=== PATIENT | male | born 1990 | race Two or more races ===

== ENCOUNTER 2020-06-01 10:20 | Outpatient (REF) | payer OTHER, SELFPAY | END 2020-06-01 10:21 | disposition home or self-care (01) | LOC: HO.LAB 10:20 | PROVIDERS: Visit Provider Internal Medicine | DX: Z20.822 Contact with and (suspected) exposure to COVID-19 (principal) | CPT/HCPCS: 36415; C9803; U0003 ==

== ENCOUNTER 2020-09-04 11:38 | Inpatient (IN) | payer OTHER, SELFPAY ==
[2020-09-04] VITALS (8 sets, daily range): BP systolic 109–143; BP diastolic 55–83; PULSE 59–79; RESP 15–20; TEMP 36.2–36.8; O2SAT 95–99; BMI 26.6
--- NOTE | ~2020-09-04 | CT_ITS ---
EXAMINATION: CT ABDOMEN AND PELVIS WITH CONTRAST CLINICAL INFORMATION: Right lower quadrant pain. COMPARISON: None TECHNIQUE: Multidetector volumetric images were obtained from the superior aspect of the liver through the pubic symphysis following administration 85 mL of Omnipaque 350 intravenous contrast. Sagittal and coronal reformatted images were obtained on the technologist's workstation. Oral contrast: No This CT examination was performed using dose optimization techniques as appropriate, variously including the following: *Automated exposure control *Adjustment of mA and/or kV according to patient size (this includes techniques or standardized protocols for targeted exams where dose is matched to indication/reason for exam; i.e. extremities or head) *Use of iterative reconstruction technique DLP: 408 mGy-cm FINDINGS: LUNG BASES: The visualized lung bases are unremarkable. LIVER, GALLBLADDER, AND BILIARY TREE: The liver is normal in size, shape, and attenuation. No focal hepatic lesion or biliary ductal dilatation is present. The gallbladder is unremarkable with no evidence of radiopaque gallstones, gallbladder wall thickening, or obvious pericholecystic inflammatory changes. PANCREAS: Unremarkable. SPLEEN: Unremarkable. ADRENAL GLANDS: Unremarkable. KIDNEYS AND URETERS: The kidneys are normal in size, shape, and attenuation. No hydronephrosis, hydroureter, or calculi seen. No perinephric stranding. BLADDER: Unremarkable. GASTROINTESTINAL TRACT: There is scattered stool and gas seen throughout the colon. The small bowel loops are normal caliber. The appendix is prominent measuring 1.2 cm in diameter. No malissa appendix fat stranding seen. There is no evidence of appendicolith. ABDOMINAL WALL: No significant hernia is appreciated. LYMPH NODES: Normal. VASCULAR: Unremarkable. PELVIC VISCERA: There is no free air or free fluid. OSSEOUS STRUCTURES: No lytic or sclerotic process seen. CT/CT abdomen pelvis w con IMPRESSION: Prominent appendix measuring 1.2 cm in diameter but no malissa appendix fat stranding or appendicolith. Mild constipation.
--- NOTE | 2020-09-04 12:25 | ED.ABDPAIN ---
HPI - Abdominal Pain General Chief Complaint: Abdominal Pain Stated Complaint: abd pain Time Seen by Provider: 09/04/20 12:00 Source: patient Mode of arrival: ambulatory Limitations: no limitations History of Present Illness HPI narrative: 30-year-old male previously healthy here with abdominal pain. The patient tells me he went to urgent care for right ear pain today and also mentions some right lower abdominal pain which he has had for the last 24 hours. It was recommended he come to the emergency department for further evaluation. He tells me he has had pain in the right lower quadrant for the last 24 hours with nausea. Also having some urinary frequency. No fevers, chills, vomiting, diarrhea, constipation. No testicular pain or penile discharge. Also complaining of right ear pain times several days with no rhinorrhea, nasal congestion, headache, fevers or chills. Related Data Home Medications Medication Instructions Recorded Confirmed cetirizine 10 mg tablet 10 mg PO DAILY 09/04/20 09/04/20 fluticasone propionate spray INTRANASAL 09/04/20 Allergies Allergy/AdvReac Type Severity Reaction Status Date / Time pollen Allergy Unknown rASH, sob Uncoded 09/04/20 11:44 tuna Allergy Unknown anaphylaxis Uncoded 09/04/20 11:44 Review of Systems Review of Systems Yes all other systems are reviewed and are negative Constitutional: Reports no additional constitutional complaints, Denies body ache(s), Denies chills, Denies fever(s), Denies headache(s) and Denies weakness Eyes: Reports no additional eye complaints and Denies change in vision Reports system reviewed and no additional complaints, except as documented, Denies dizziness, Reports otalgia, Denies headache(s), Denies nasal congestion, Denies nasal discharge and Denies neck pain Cardiovascular: Reports no additional cardiovascular complaints, Denies chest pain, Denies leg edema and Denies dyspnea Respiratory: Reports no additional respiratory complaints, Denies cough and Denies dyspnea Gastrointestinal: Reports no additional gastrointestinal complaints, Reports abdominal pain, Denies diarrhea, Reports nausea and Denies vomiting Genitourinary: Denies urinary incontinence Musculoskeletal: Reports no additional musculoskeletal complaints, Denies back pain, Denies arthralgias, Denies joint swelling, Denies neck pain, Denies numbness and Denies tingling Skin/Breast: Reports system reviewed and no additional complaints, except as docu and Denies rash Reports system reviewed and no additional complaints, except as documented, Denies Abnormal speech present, Denies dizziness, Denies headache(s), Denies numbness, Denies tingling and Denies weakness Physical Exam Vital Signs: Vital Signs: Last Vital Signs Temp 98.0 F 09/04/20 11:39 Pulse 62 09/04/20 16:36 Resp 16 09/04/20 16:36 BP 122/69 09/04/20 16:36 Pulse Ox 98 09/04/20 16:36 Body Mass Index 26.6 Const: General: cooperative, healthy appearing, comfortable and no acute distress Orientation/consciousness: patient oriented x3 Limitations: no limitations HENMT: Head: Yes normal to inspection Ears: hearing grossly normal bilaterally, TM normal on the left, mastoids normal, no periauricular adenopathy and TM abnormal (Bulging, erythema) General nose exam: Normal external nose present Face and sinus: Yes normal facial exam Mouth: Normal oral and palatal mucosa present Throat: Yes posterior oropharynx normal Eyes: General: appearance normal, both eyes and all related structures Pupils: Equal, round and reactive pupils present Neck: Neck: Yes normal visual inspection Chest: Chest palpation & inspection: normal inspection of the chest Resp: Effort & Inspection: normal respiratory effort Auscultation: clear to auscultation bilaterally Cardio: Rate: regular rate Rhythm: regular rhythm Peripheral pulses: Peripheral pulses 2+ throughout GI: Inspection: Yes normal to inspection Palpation (GI): Soft to palpation and Tenderness to palpation present (GI) (Moderate tenderness to the right lower abdomen w/guarding) with no rebound tenderness Auscultation: normal bowel sounds : General: Yes no CVA tenderness Back/Spine/Pelvis: Back: no CVA tenderness Thoracic/Lumbar Spine: thoracic and lumbar spine normal to inspection Skin: General skin exam: no rashes or lesions noted Neuro: General: patient oriented x3, no focal motor deficits and normal sensation to monofilament Cranial nerves: Yes Equal, round and reactive pupils present Cognition (Neuro): normal cognition Speech: No Abnormal speech present Gait exam (Neuro): Normal gait present Motor exam (neuro): 5/5 motor strength present throughout Extrem: General: Yes normal to inspection, Yes no pedal edema and Yes no calf tenderness Course Course Course Narrative: 30-year-old male here with right-sided abdominal pain times 24 hours with nausea. On exam has moderate tenderness in the right lower quadrant with some guarding but no rebound. Will need labs, UA, CT a/P. Has right otitis media on exam. Will need antibiotics for this. 1615- CT shows: Prominent appendix measuring 1.2 cm in diameter but no malissa appendix fat stranding or appendicolith. No leukocytosis or shift. Afebrile. Patient did receive 1 dose of morphine but does still have some right lower quadrant tenderness. Spoke to Dr. Wiley who will come down and evaluate the patient at the bedside. 1729-Spoke to Dr Wiley who came to evaluate the patient. Plan for admission. She will order antibiotics. COVID screen ordered. MDM - Abdominal Pain Medical Records Attestation: I reviewed the patient's medical records. Lab Data Attestation: I reviewed the patient's lab results. Result diagrams: 09/04/20 12:58 09/04/20 12:58 Labs: Lab Results 09/04/20 09/04/20 09/04/20 Range/Units 12:58 12:58 12:58 WBC 9.3 (4.8-10.8) X10*3/uL RBC 5.39 (4.60-5.80) X10*6/uL Hgb 15.0 (14.0-18.0) g/dl Hct 45.6 (42-52) % MCV 84.6 (80-98) fL MCH 27.8 (27.0-33.0) pg MCHC 32.9 (31.0-36.0) g/dl RDW 12.1 (11.0-16.0) % Plt Count 211 (160-400) X10*3/uL MPV 11.3 (9.4-12.4) fL Immature Gran % (Auto) 0.2 (0.0-0.4) % Neut % (Auto) 44.6 L (45-73) % Lymph % (Auto) 46.3 H (20-40) % [place] % (Auto) 6.0 (2-11) % Eos % (Auto) 2.6 (0-4) % Baso % (Auto) 0.3 (0-2) % Lymph # (Auto) 4.3 (1.2-4.9) X10*3/uL [place] # (Auto) 0.6 (0.1-1.2) X10*3/uL Eos # (Auto) 0.2 (0.0-0.4) X10*3/uL Baso # (Auto) 0.0 (0.0-0.2) X10*3/uL Abs Immat Gran (auto) 0.02 (0.00-0.03) X10*3/uL Absolute Neuts (auto) 4.2 (2.0-8.3) X10*3/uL Absolute Nucleated RBC 0.000 (0.0-0.012) X10*3/uL Nucleated RBC % (auto) 0.0 (0.0-0.2) /100WBC Hold Blue Top SEE NOTE Sodium 139 (135-145) mmol/L Potassium 4.2 (3.3-5.1) mmol/L Chloride 103 (96-108) mmol/L Carbon Dioxide 27 (22-29) mmol/L Anion Gap 13 (12-20) BUN 13 (9-16) mg/dL Creatinine 0.86 (0.5-1.4) mg/dL Estim Creat Clear Calc 103.3 Estimated GFR > 60 Random Glucose 94 (60-115) mg/dL Calcium 9.6 (8.4-10.2) mg/dL Total Bilirubin 0.3 (0.0-1.0) mg/dL Direct Bilirubin < 0.2 (0.0-0.5) mg/dL AST 24 (5-37) U/L ALT 29 (0-40) U/L Alkaline Phosphatase 57 (39-117) U/L Total Protein 7.9 (6.5-8.0) g/dL Albumin 4.8 (3.5-5.0) g/dL Urine Color Urine Appearance Urine pH (5.0-8.0) Ur Specific [place] (1.005-1.025) Urine Protein (NEG-TRACE) MG/DL Urine Glucose (UA) (NEG) MG/DL Urine Ketones (NEG) MG/DL Urine Blood (NEG) Urine Nitrite (NEG) Ur Leukocyte Esterase (NEG) 09/04/20 Range/Units 13:09 WBC (4.8-10.8) X10*3/uL RBC (4.60-5.80) X10*6/uL Hgb (14.0-18.0) g/dl Hct (42-52) % MCV (80-98) fL MCH (27.0-33.0) pg MCHC (31.0-36.0) g/dl RDW (11.0-16.0) % Plt Count (160-400) X10*3/uL MPV (9.4-12.4) fL Immature Gran % (Auto) (0.0-0.4) % Neut % (Auto) (45-73) % Lymph % (Auto) (20-40) % [place] % (Auto) (2-11) % Eos % (Auto) (0-4) % Baso % (Auto) (0-2) % Lymph # (Auto) (1.2-4.9) X10*3/uL [place] # (Auto) (0.1-1.2) X10*3/uL Eos # (Auto) (0.0-0.4) X10*3/uL Baso # (Auto) (0.0-0.2) X10*3/uL Abs Immat Gran (auto) (0.00-0.03) X10*3/uL Absolute Neuts (auto) (2.0-8.3) X10*3/uL Absolute Nucleated RBC (0.0-0.012) X10*3/uL Nucleated RBC % (auto) (0.0-0.2) /100WBC Hold Blue Top Sodium (135-145) mmol/L Potassium (3.3-5.1) mmol/L Chloride (96-108) mmol/L Carbon Dioxide (22-29) mmol/L Anion Gap (12-20) BUN (9-16) mg/dL Creatinine (0.5-1.4) mg/dL Estim Creat Clear Calc Estimated GFR Random Glucose (60-115) mg/dL Calcium (8.4-10.2) mg/dL Total Bilirubin (0.0-1.0) mg/dL Direct Bilirubin (0.0-0.5) mg/dL AST (5-37) U/L ALT (0-40) U/L Alkaline Phosphatase (39-117) U/L Total Protein (6.5-8.0) g/dL Albumin (3.5-5.0) g/dL Urine Color YELLOW Urine Appearance CLEAR Urine pH 6.0 (5.0-8.0) Ur Specific [place] >= 1.030 H (1.005-1.025) Urine Protein NEG (NEG-TRACE) MG/DL Urine Glucose (UA) NEG (NEG) MG/DL Urine Ketones 5 (NEG) MG/DL Urine Blood NEG (NEG) Urine Nitrite NEG (NEG) Ur Leukocyte Esterase NEG (NEG) Imaging Data CT scan - abdomen: Attestation: I personally reviewed and interpreted this imaging study as follows: Radiologist's impression: EXAMINATION: CT ABDOMEN AND PELVIS WITH CONTRAST CLINICAL INFORMATION: Right lower quadrant pain. COMPARISON: None TECHNIQUE: Multidetector volumetric images were obtained from the superior aspect of the liver through the pubic symphysis following administration 85 mL of Omnipaque 350 intravenous contrast. Sagittal and coronal reformatted images were obtained on the technologist's workstation. Oral contrast: No This CT examination was performed using dose optimization techniques as appropriate, variously including the following: *Automated exposure control *Adjustment of mA and/or kV according to patient size (this includes techniques or standardized protocols for targeted exams where dose is matched to indication/reason for exam; i.e. extremities or head) *Use of iterative reconstruction technique DLP: 408 mGy-cm FINDINGS: LUNG BASES: The visualized lung bases are unremarkable. LIVER, GALLBLADDER, AND BILIARY TREE: The liver is normal in size, shape, and attenuation. No focal hepatic lesion or biliary ductal dilatation is present. The gallbladder is unremarkable with no evidence of radiopaque gallstones, gallbladder wall thickening, or obvious pericholecystic inflammatory changes. PANCREAS: Unremarkable. SPLEEN: Unremarkable. ADRENAL GLANDS: Unremarkable. KIDNEYS AND URETERS: The kidneys are normal in size, shape, and attenuation. No hydronephrosis, hydroureter, or calculi seen. No perinephric stranding. BLADDER: Unremarkable. GASTROINTESTINAL TRACT: There is scattered stool and gas seen throughout the colon. The small bowel loops are normal caliber. The appendix is prominent measuring 1.2 cm in diameter. No malissa appendix fat stranding seen. There is no evidence of appendicolith. ABDOMINAL WALL: No significant hernia is appreciated. LYMPH NODES: Normal. VASCULAR: Unremarkable. PELVIC VISCERA: There is no free air or free fluid. OSSEOUS STRUCTURES: No lytic or sclerotic process seen. CT/CT abdomen pelvis w con IMPRESSION: Prominent appendix measuring 1.2 cm in diameter but no malissa appendix fat stranding or appendicolith. Mild constipation. Discharge Plan Discharge Clinical Impression: Abdominal pain Patient Disposition: Admitted As Inpatient [facility] Past Medical History Attestation statement: The following information was validated with the patient. Source: old records reviewed and nursing notes reviewed Medical History No known health problems Family History Family History Father Hypertension Diabetes Mother No problems noted. Paternal Grandfather Diabetes Social History Social History (Updated 09/04/20 @ 17:03 by Shraddha Wiley MD) Alcohol intake: former Smoking Status: Former smoker Tobacco Type: Cigarette Smoked in Last 30 Days: No Smoking Quit Date: October 2019 Use of substances other than those prescribed or required for medical reasons: No Advance Directives: No Advance Directives Information Provided: Yes
[2020-09-04 13:04] LABS: MANUAL DIFF FLAG NO
[2020-09-04 13:06] LABS: Basophils Percent Auto 0.3 % (0-2); Eosinophils Absolute Auto 0.2 X10*3/uL (0.0-0.4); Eosinophils Percent Auto 2.6 % (0-4); Hematocrit 45.6 % (42-52); Imm Gran Abs Auto 0.02 X10*3/uL (0.00-0.03); Imm Gran Pct Auto 0.2 % (0.0-0.4); Lymphocytes Absolute Auto 4.3 X10*3/uL (1.2-4.9); Lymphocytes Percent Auto 46.3 % (20-40); Mean Corpuscular HGB Conc 32.9 g/dl (31.0-36.0); Mean Corpuscular Hemoglobin 27.8 pg (27.0-33.0); Mean Corpuscular Volume 84.6 fL (80-98); Mean Platelet Volume 11.3 fL (9.4-12.4); Monocytes Absolute Auto 0.6 X10*3/uL (0.1-1.2); Neutrophils Absolute Auto 4.2 X10*3/uL (2.0-8.3); Neutrophils Percent Auto 44.6 % (45-73); Platelet Count 211 X10*3/uL (160-400); Red Blood Count 5.39 X10*6/uL (4.60-5.80); Red Cell Distribution Width 12.1 % (11.0-16.0); White Blood Count 9.3 X10*3/uL (4.8-10.8)
--- NOTE | 2020-09-04 13:18 | PC.NURSE ---
Pt alert and oriented, skin warm, dry. Pt reports referred to ED by Primary DrBashir d/t Right Lower abdominal pain 12/26. Pt resting comfortably at this time with at bedside.
[2020-09-04 13:21] LABS: Appearance Urine CLEAR; Color Urine YELLOW; Glucose Urine UA NEG (NEG); Leukocyte Esterase Urine NEG (NEG); Nitrite Urine NEG (NEG); Specific Gravity - Urine >= 1.030 (1.005-1.025); Urine Blood NEG (NEG); Urine Ketones 5 MG/DL (NEG); Urine Protein NEG (NEG-TRACE)
[2020-09-04 13:30] LABS: Alanine Aminotransferase 29 U/L (0-40); Albumin Level 4.8 g/dL (3.5-5.0); Alkaline Phosphatase 57 U/L (39-117); Anion Gap 13 (12-20); Aspartate Amino Transferase 24 U/L (5-37); Bilirubin Direct < 0.2 mg/dL (0.0-0.5); Bilirubin Total 0.3 mg/dL (0.0-1.0); Blood Urea Nitrogen 13 mg/dL (9-16); Calcium 9.6 mg/dL (8.4-10.2); Carbon Dioxide 27 mmol/L (22-29); Chloride 103 mmol/L (96-108); Creatinine Clr Calc Pharmacy 103.3; Estimated Glomerular Filt Rate > 60; Glucose Random 94 mg/dL (60-115); Potassium 4.2 mmol/L (3.3-5.1); Sodium 139 mmol/L (135-145); Total Protein 7.9 g/dL (6.5-8.0)
[2020-09-04] MEDS: Morphine Sulfate 2 MG/ML CARTRIDGE IVPUSH ×2 (15:25→19:32)
--- NOTE | 2020-09-04 16:37 | PC.NURSE ---
Dr Wiley to bedside. Plan for admission and IV abx
--- NOTE | 2020-09-04 16:57 | P.HPGS_ITS ---
History of Present Illness History of Present Illness Date of Service: 09/04/20 Chief complaint: Abdominal pain, probable appendicitis Narrative: Mina Vincent is a 30 year old male referred to the ED this morning from urgent care for evaluation of right lower quadrant abdominal pain. He had presented to urgent care for evaluation of right ear pain and workup in the emergency room also reveals findings consistent with right otitis media. At the urgent care, he mentioned that he was experiencing right lower quadrant abdominal pain that had started around mid day yesterday. He does not have fever but has experienced mild chills. He notes mild nausea but no vomiting. He has been able to eat. His appetite is slightly diminished. He has not experienced similar pain in the past. The pain has been persistent and slowly worsening. He does not notice it when he is lying quietly, but has pain associated with any movement. He has no urinary complaints. CT scan of the abdomen and pelvis was obtained. This revealed a larger and than usual appendix with diameter of 1.2 cm. There was no periappendiceal inflammation or fluid. There was no mesenteric lymphadenopathy noted and no additional abnormalities were seen. White blood count was normal at 9.3 with a differential showing 45% neutrophils and 46% lymphocytes. Review of Systems Constitutional: Constitutional: Denies body ache(s), Reports chills (Mild), Denies fatigue and Denies fever(s) Eyes: Eyes: Reports no additional eye complaints ENT: Comments: Right ear pain Cardiovascular: Cardiovascular: Reports no additional cardiovascular complaints Respiratory: Respiratory: Reports no additional respiratory complaints Gastrointestinal: Gastrointestinal: Reports as per HPI Genitourinary: Comments: He has been passing urine more frequently in the evening recently, but thinks that this may be related to an increased intake of fluid around that time. He has no other urinary complaints Musculoskeletal: Musculoskeletal: Reports no additional musculoskeletal complaints Integumentary/Breasts: Skin/Breast: Denies rash Endocrine: Endocrine: Denies fatigue Allergic/Immunologic: Comments: Seasonal allergies PMFSH Past Medical History Medical History No known health problems Family History Family History Father Hypertension Diabetes Mother No problems noted. Paternal Grandfather Diabetes Social History Social History (Updated 09/04/20 @ 17:03 by Shraddha Wiley MD) Alcohol intake: former Smoking Status: Former smoker Tobacco Type: Cigarette Smoked in Last 30 Days: No Smoking Quit Date: October 2019 Use of substances other than those prescribed or required for medical reasons: No Advance Directives: No Advance Directives Information Provided: Yes Meds Allergies Allergy/AdvReac Type Severity Reaction Status Date / Time pollen Allergy Unknown rASH, sob Uncoded 09/04/20 11:44 tuna Allergy Unknown anaphylaxis Uncoded 09/04/20 11:44 Active Medications: Current Medications Generic Name Dose Route Start Last Admin Trade Name Freq PRN Reason Stop Dose Admin Piperacillin Sod/Tazobactam 50 mls @ 100 mls/hr 09/04/20 16:38 Sod 3.375 gm/ Sodium Chloride IV 09/04/20 17:07 ONCE STA Home Medications Medication Instructions Recorded Confirmed Last Taken Type cetirizine 10 mg tablet 10 mg PO DAILY 09/04/20 09/04/20 Unknown History fluticasone propionate spray INTRANASAL 09/04/20 Unknown History Physical Exam Vital Signs: Vital Signs: Last Vital Signs Temp 98.0 F 09/04/20 11:39 Pulse 62 09/04/20 16:36 Resp 16 09/04/20 16:36 BP 122/69 09/04/20 16:36 Pulse Ox 98 09/04/20 16:36 Body Mass Index 26.6 Const: General: healthy appearing, no acute distress, alert and awake HENMT: Other: Exam of tympanic membranes not repeated, findings consistent with right otitis media noted in the ED Head: Yes normocephalic and Yes atraumatic Eyes: Conjunctivae: conjunctivae normal Sclerae: sclerae normal EOM: EOMs intact bilaterally Neck: Neck: Yes normal visual inspection and Yes full ROM Resp: Effort & Inspection: normal respiratory effort Auscultation: clear to auscultation bilaterally Cardio: Rate: regular rate Rhythm: regular rhythm GI: Other: Nondistended, soft, no organomegaly, tender right lower quadrant with guarding and mild rebound, no palpable masses Rectal Exam - Male: Yes def erred Skin: Other: Normal color, warm and dry Extrem: Other: Extremities normal to inspection Results Results Labs: Short CBC 09/04/20 Range/Units 12:58 WBC 9.3 (4.8-10.8) X10*3/uL Hgb 15.0 (14.0-18.0) g/dl Hct 45.6 (42-52) % Plt Count 211 (160-400) X10*3/uL BMP 09/04/20 12:58 Sodium 139 Potassium 4.2 Chloride 103 Carbon Dioxide 27 BUN 13 Creatinine 0.86 Calcium 9.6 Liver Function 09/04/20 Range/Units 12:58 Total Bilirubin 0.3 (0.0-1.0) mg/dL Direct Bilirubin < 0.2 (0.0-0.5) mg/dL AST 24 (5-37) U/L ALT 29 (0-40) U/L Alkaline Phosphatase 57 (39-117) U/L Albumin 4.8 (3.5-5.0) g/dL Urine 09/04/20 Range/Units 13:09 Urine Color YELLOW Urine Appearance CLEAR Urine pH 6.0 (5.0-8.0) Ur Specific [place] >= 1.030 H (1.005-1.025) Urine Protein NEG (NEG-TRACE) MG/DL Urine Glucose (UA) NEG (NEG) MG/DL Assessment and Plan (1) Abdominal pain: Qualifiers: Abdominal location: right lower quadrant Qualified Code(s): R10.31 - Right lower quadrant pain Status: Acute This is a 30-year-old male with a 1 day history of worsening right lower quadrant abdominal pain with mild associated nausea. White blood count is normal. CT scan shows a larger than normal appendix without other signs of inflammation. History and exam findings are consistent with early acute appendicitis as is the CT scan, but other etiologies are possible. We discussed this and reviewed options for observation, antibiotic therapy and surgery. We discussed the details as well as potential advantages and disadvantages of each approach. We reviewed the technique of appendectomy and discussed the approach of laparoscopic appendectomy with potential need to convert to open appendectomy in detail. We reviewed risks including but not limited to infection, bleeding, error in diagnosis and appendiceal stump leak. We discussed the average success rate of antibiotic therapy in treatment of appendicitis and the risk of rec urrent appendicitis if antibiotic therapy is successful. We also reviewed that if he does not respond probably to antibiotic therapy, appendectomy would be the next recommended step in treatment. Following discussion, he elected to proceed with a course of antibiotic therapy. He will be treated with Zosyn, which should be effective for his otitis media as well. (2) Otitis media: Problem details: Right Status: Acute New diagnosis of right otitis media. Findings noted by Cristiana Hope NP in the emergency department. He will be treated initially with Zosyn and will be converted to oral antibiotics to complete his treatments treatment course on discharge.
[2020-09-04] MEDS: Piperacillin Sodium/Tazobactam 3.375 GM in 0.9 % Sodium Chloride 50 ML IV ×2 (17:40→22:48)
[2020-09-04 18:35] LABS: COVID-19 Test Negative (Negative); IDNOW Serial# 9DD0AD1C
[2020-09-04] MEDS: Dextrose 5 % and Lactated Ring 1,000 ML 100 ML IVCONT (19:30)
[2020-09-04] MEDS: HYDROmorphone HCl 0.5 MG/0.5 ML SYRINGE IVPUSH (21:31)
[2020-09-05] VITALS (13 sets, daily range): BP systolic 100–134; BP diastolic 50–73; PULSE 54–90; RESP 16–19; TEMP 36.6–37.1; O2SAT 95–99
[2020-09-05] MEDS: HYDROmorphone HCl 0.5 MG/0.5 ML SYRINGE IVPUSH ×4 (00:36→21:13)
[2020-09-05] MEDS: Piperacillin Sodium/Tazobactam 3.375 GM in 0.9 % Sodium Chloride 50 ML IV ×2 (05:47→11:42)
[2020-09-05] MEDS: Dextrose 5 % and Lactated Ring 1,000 ML 100 ML IVCONT (05:47)
[2020-09-05 06:10] LABS: MANUAL DIFF FLAG NO
[2020-09-05 06:23] LABS: Basophils Percent Auto 0.4 % (0-2); Eosinophils Absolute Auto 0.3 X10*3/uL (0.0-0.4); Eosinophils Percent Auto 2.8 % (0-4); Hematocrit 42.2 % (42-52); Hemoglobin 13.5 g/dl (14.0-18.0); Imm Gran Abs Auto 0.03 X10*3/uL (0.00-0.03); Imm Gran Pct Auto 0.3 % (0.0-0.4); Lymphocytes Absolute Auto 4.4 X10*3/uL (1.2-4.9); Lymphocytes Percent Auto 40.4 % (20-40); Mean Corpuscular Hemoglobin 27.8 pg (27.0-33.0); Mean Corpuscular Volume 86.8 fL (80-98); Mean Platelet Volume 11.9 fL (9.4-12.4); Monocytes Absolute Auto 0.7 X10*3/uL (0.1-1.2); Monocytes Percent Auto 6.3 % (2-11); Neutrophils Absolute Auto 5.4 X10*3/uL (2.0-8.3); Neutrophils Percent Auto 49.8 % (45-73); Platelet Count 196 X10*3/uL (160-400); Red Blood Count 4.86 X10*6/uL (4.60-5.80); White Blood Count 10.9 X10*3/uL (4.8-10.8)
--- NOTE | 2020-09-05 08:26 | PM.PNGS ---
Subjective Subjective Date of Service: 09/05/20 Interval history: 30-year-old male patient presenting with complaints of abdominal pain in the right lower quadrant admitted for IV antibiotics. In the last 24 hours the patient notes increased pain in the right lower quadrant, not improved with the current treatment. He denies fever or chills. He denies any current ear pain. Physical Exam Vital Signs: Vital Signs: Last Vital Signs Temp 98.1 F 09/05/20 07:24 Pulse 55 09/05/20 07:24 Resp 16 09/05/20 07:24 BP 111/50 L 09/05/20 07:24 Pulse Ox 98 09/05/20 07:24 Body Mass Index 26.6 Const: General: cooperative, no acute distress and acute distress mild Nutritional Appearance: well nourished Orientation/consciousness: patient oriented x3 Limitations: no limitations Resp: Effort & Inspection: normal respiratory effort GI: Other: Soft, tender in the right lower quadrant with localized rebound tenderness, negative Rovsing sign Skin: Other: Warm, dry, no rash Neuro: General: patient oriented x3 Extrem: General: Yes no clubbing, cyanosis or edema Progress Note: A&P Assessment and plan (1) Acute appendicitis: Status: Acute Assessment and Plan: 30-year-old male patient presenting with complaints of abdominal pain in the right lower quadrant. Patient was initially worked up which noted a normal WBC and a thickened appendix without evidence of appendiceal inflammation. He was admitted for IV antibiotics and observation. This morning his pain is increased mainly in the right lower quadrant suggestive of acute appendicitis. I discussed continue the antibiotics verses laparoscopic appendectomy. The patient wishes to proceed with a laparoscopic appendectomy. After discussion of the procedure, risks, and alternatives, he consents to the laparoscopic appendectomy or possible open appendectomy. This will be added onto the operative schedule today. Fall Risk Details Current Medications: Current Medications Generic Name Dose Route Start Last Admin Trade Name Freq PRN Reason Stop Dose Admin Acetaminophen 650 mg 09/04/20 18:34 Acetaminophen 325 Mg Tablet PO Q6H PRN Fever Albuterol Sulfate 2 puff 09/04/20 22:27 Albuterol Sulfate 90 Mcg 8 Gm Inhaler INHALE RQ6H PRN shortness of breath, wheezing Hydromorphone HCl 0.5 mg 09/04/20 21:14 09/05/20 05:53 Hydromorphone Hcl 0.5 Mg/0.5 Ml Syringe IVPUSH 0.5 mg Q3H PRN Administration Pain, Severe (Pain Scale 7-10) Dextrose/Lactated Ringer's 1,000 mls @ 100 mls/hr 09/04/20 18:34 09/05/20 05:47 D5lr IVCONT 100 mls/hr .Q10H MARTINEZ Administration Piperacillin Sod/Tazobactam 50 mls @ 100 mls/hr 09/05/20 00:00 09/05/20 06:25 Sod 3.375 gm/ Sodium Chloride IV Infused Q6H MARTINEZ Infusion Cefotetan Disodium 2 gm/ 50 mls @ 100 mls/hr 09/05/20 08:10 Sodium Chloride IV 09/05/20 08:39 PREOP ONE Loratadine 10 mg 09/05/20 09:00 09/05/20 08:07 Loratadine 10 Mg Tablet PO Not Given DAILY MARTINEZ Ondansetron HCl 4 mg 09/04/20 18:34 Ondansetron Hcl 4 Mg/2 Ml Vial IVPUSH Q8H PRN nausea Time Spent With Patient Time: Total time spent is greater than 50% in coordination of care (as documented) at patient's floor/unit and/or counseling patient: Time with patient: 15 - 24 minutes
--- NOTE | 2020-09-05 08:36 | ECG_ITS ---
Test Reason : PREOP Blood Pressure : / mmHG Vent. Rate : 053 BPM Atrial Rate : 053 BPM P-R Int : 160 ms QRS Dur : 090 ms QT Int : 416 ms P-R-T Axes : 035 047 045 degrees QTc Int : 390 ms Sinus bradycardia Otherwise normal ECG When compared with ECG of 01-AUG-2018 19:51, Vent. rate has decreased BY 35 BPM Referred By: Shraddha Wiley Electronically Signed By:Jonah Rodgers
--- NOTE | 2020-09-05 09:20 | MHC.CM.PN ---
PATIENT LIVES WITH HIS . HE IS FULLY INDEPENDENT WITH NO DME OR VNA. IS ON HER WAY IN TO SEE PATIENT, AND THEY WILL DISCUSS HCP DOCUMENTATION. CASE MANAGEMENT CAN ASSIST WITH COMPLETION. PLAN IS SURGERY TODAY. EVENTUAL PLAN IS HOME WITH NO SERVICES. HE MAY REQUIRE A RETURN TO WORK NOTE.
[2020-09-05] MEDS: ondansetron HCL 4 MG/2 ML VIAL IVPUSH (09:58)
--- NOTE | 2020-09-05 14:25 | PC.NURSE ---
Pt transported to OR.
[2020-09-05] MEDS: Lactated Ringers 1,000 ML 100 ML IVCONT (14:28)
--- NOTE | 2020-09-05 14:49 | HO.ANESPROP2 ---
[facility] Active Problems Active Problems: All Active Problems (Updated 09/05/20 @ 08:29 by Josh Mcneal MD) Acute appendicitis (Acute) Physical exam (Acute) Abdominal pain (Acute) Otitis media (Acute) Past Medical History Medical History Asthma No known health problems Family History Family History Father Hypertension Diabetes Mother No problems noted. Paternal Grandfather Diabetes Social History Social History Household Members: Spouse and Family Housing: House Alcohol intake: former Smoking Status: Former smoker Tobacco Type: Cigarette service: No Current occupational status: employed Meds Allergies Allergy/AdvReac Type Severity Reaction Status Date / Time pollen Allergy Unknown rASH, sob Uncoded 09/04/20 11:44 tuna Allergy Unknown anaphylaxis Uncoded 09/04/20 11:44 Active Medications: Current Medications Generic Name Dose Route Start Last Admin Trade Name Freq PRN Reason Stop Dose Admin Acetaminophen 650 mg 09/04/20 18:34 Acetaminophen 325 Mg Tablet PO Q6H PRN Fever Albuterol Sulfate 2 puff 09/04/20 22:27 Albuterol Sulfate 90 Mcg 8 Gm Inhaler INHALE RQ6H PRN shortness of breath, wheezing Hydromorphone HCl 0.5 mg 09/04/20 21:14 09/05/20 09:49 Hydromorphone Hcl 0.5 Mg/0.5 Ml Syringe IVPUSH 0.5 mg Q3H PRN Administration Pain, Severe (Pain Scale 7-10) Dextrose/Lactated Ringer's 1,000 mls @ 100 mls/hr 09/04/20 18:34 09/05/20 05:47 D5lr IVCONT 100 mls/hr .Q10H MARTINEZ Administration Piperacillin Sod/Tazobactam 50 mls @ 100 mls/hr 09/05/20 00:00 09/05/20 12:20 Sod 3.375 gm/ Sodium Chloride IV Infused Q6H MARTINEZ Infusion Loratadine 10 mg 09/05/20 09:00 09/05/20 08:07 Loratadine 10 Mg Tablet PO Not Given DAILY MARTINEZ Ondansetron HCl 4 mg 09/04/20 18:34 09/05/20 09:58 Ondansetron Hcl 4 Mg/2 Ml Vial IVPUSH 4 mg Q8H PRN Administration nausea Home Medications Medication Instructions Recorded Confirmed Last Taken Type cetirizine 10 mg tablet 10 mg PO DAILY 09/04/20 09/04/20 Unknown History fluticasone propionate spray INTRANASAL 09/04/20 Unknown History Exam Exam Date and Time: September 05, 2020 1449 Height,Weight and Vital Signs: Height 5 ft 2 in Weight 66.224 kg Last Vital Signs Temp 98.7 F 09/05/20 14:18 Pulse 58 09/05/20 14:18 Resp 16 09/05/20 14:18 BP 112/63 09/05/20 14:18 Pulse Ox 99 09/05/20 14:18 Pertinent Lab Results Pertinent Lab Results: Laboratory Tests 09/04/20 09/04/20 09/04/20 12:58 12:58 12:58 WBC 9.3 RBC 5.39 Hgb 15.0 Hct 45.6 MCV 84.6 MCH 27.8 MCHC 32.9 RDW 12.1 Plt Count 211 MPV 11.3 Immature Gran % (Auto) 0.2 Neut % (Auto) 44.6 L Lymph % (Auto) 46.3 H [place] % (Auto) 6.0 Eos % (Auto) 2.6 Baso % (Auto) 0.3 Lymph # (Auto) 4.3 [place] # (Auto) 0.6 Eos # (Auto) 0.2 Baso # (Auto) 0.0 Abs Immat Gran (auto) 0.02 Absolute Neuts (auto) 4.2 Absolute Nucleated RBC 0.000 Nucleated RBC % (auto) 0.0 Hold Blue Top SEE NOTE Sodium 139 Potassium 4.2 Chloride 103 Carbon Dioxide 27 Anion Gap 13 BUN 13 Creatinine 0.86 Estim Creat Clear Calc 103.3 Estimated GFR > 60 Random Glucose 94 Calcium 9.6 Total Bilirubin 0.3 Direct Bilirubin < 0.2 AST 24 ALT 29 Alkaline Phosphatase 57 Total Protein 7.9 Albumin 4.8 Urine Color Urine Appearance Urine pH Ur Specific [place] Urine Protein Urine Glucose (UA) Urine Ketones Urine Blood Urine Nitrite Ur Leukocyte Esterase COVID-19 (JOHN) COVID-19 Clin Com 09/04/20 09/04/20 09/05/20 13:09 18:06 05:48 WBC 10.9 H RBC 4.86 Hgb 13.5 L Hct 42.2 MCV 86.8 MCH 27.8 MCHC 32.0 RDW 12.0 Plt Count 196 MPV 11.9 Immature Gran % (Auto) 0.3 Neut % (Auto) 49.8 Lymph % (Auto) 40.4 H [place] % (Auto) 6.3 Eos % (Auto) 2.8 Baso % (Auto) 0.4 Lymph # (Auto) 4.4 [place] # (Auto) 0.7 Eos # (Auto) 0.3 Baso # (Auto) 0.0 Abs Immat Gran (auto) 0.03 Absolute Neuts (auto) 5.4 Absolute Nucleated RBC 0.000 Nucleated RBC % (auto) 0.0 Hold Blue Top Sodium Potassium Chloride Carbon Dioxide Anion Gap BUN Creatinine Estim Creat Clear Calc Estimated GFR Random Glucose Calcium Total Bilirubin Direct Bilirubin AST ALT Alkaline Phosphatase Total Protein Albumin Urine Color YELLOW Urine Appearance CLEAR Urine pH 6.0 Ur Specific [place] >= 1.030 H Urine Protein NEG Urine Glucose (UA) NEG Urine Ketones 5 Urine Blood NEG Urine Nitrite NEG Ur Leukocyte Esterase NEG COVID-19 (JOHN) Negative COVID-19 Clin Com See Note Airway Mallampati Class: II TM Dist: >3cm Neck ROM: Full
--- NOTE | 2020-09-05 15:43 | MHC.SHP ---
Pre-Procedural Eval Section A The patient is an INPATIENT: Yes Section B Chief Complaint: Abdominal pain, probable appendicitis Allergies: Allergies Allergy/AdvReac Type Severity Reaction Status Date / Time pollen Allergy Unknown rASH, sob Uncoded 09/04/20 11:44 tuna Allergy Unknown anaphylaxis Uncoded 09/04/20 11:44 Plan Diagnosis/Plan: Unchanged I have reviewed the history and physical and performed a pertinent physical examination on my patient. No changes have occurred unless specified.
--- NOTE | 2020-09-05 17:49 | W.PM.OPN ---
Operative Note Operative Note Date of Service: 09/05/20 Narrative: Preoperative diagnosis: Acute appendicitis Postoperative diagnosis: Same Procedure: Laparoscopic appendectomy Surgeon: Josh Mcneal MD [employer] Supervisor:None Anesthesia: General endotracheal Indications for procedure: 30-year-old male patient with complaints of abdominal pain in the right lower quadrant. Patient was found to be tender in the right lower quadrant but with a normal white count. CT revealed a thickened appendix suggestive of early appendicitis. He was initially treated with IV antibiotics, however today he noted increased abdominal pain in the right lower quadrant which increased also with movement. He presents today for laparoscopic appendectomy. Operative findings: Patient was found to have a minimally inflamed non perforated appendix Specimen:. Appendix Estimated blood loss: 2 mL Complications: None Procedure details: Patient was brought to the OR and placed in a supine position. After administering general anesthesia the patient's abdomen was prepped with ChloraPrep and draped in a sterile fashion. A surgical time-out was called and consent confirmed. Patient received preoperative antibiotics and Venodyne boots were in place. Local anesthesia consisting of 0.5% Sensorcaine with epinephrine was infiltrated in periumbilical region. A 5 mm incision was made below the umbilicus and carried down through subcutaneous tissue. A Veress needle was then inserted while elevating abdominal cavity with towel clips. After a positive drop test the abdomen was insufflated to a pressure of 15 mm of mercury. The Veress needle was removed and a 5 mm trocar inserted. The camera was then inserted in the abdomen explored. A 2nd 5 mm trocars placed in the lower midline. A 12 mm trocar was then placed in the left lower quadrant. The patient was then placed in a Trendelenburg position and rotated to the left. The appendix was identified in the right lower quadrant and brought up using blunt dissecting clamps. The mesentery of the appendix was then divided using the LigaSure. The appendiceal artery was cauterized and divided using the LigaSure. Dissection was continued down to the base of the cecum. An Endo-ROBERTO stapler with a purple reload was then used to divide the appendix at the base with the cecum. The appendix was then placed in Endo-Catch bag and brought out through the left lower quadrant incision. The abdomen was then irrigated with saline solution and suctioned dry. Wounds were checked for hemostasis. CO2 was then evacuated from the abdominal cavity and all trocars removed. Fascia was closed in the left lower quadrant incision using a [id number] 0 Polysorb suture. Skin was closed at all incisions using a subcuticular 4-0 Polysorb suture. Steri-Strips 2 x 2 gauze and Tegaderm were then applied. The patient tolerated the procedure well. Sponge, instrument, needle counts reported as correct. The patient was transferred to PACU in stable condition.
--- NOTE | 2020-09-05 18:01 | P.CONAN_ITS ---
[facility] Active Problems Active Problems: All Active Problems (Updated 09/05/20 @ 08:29 by Josh bailey MD) Acute appendicitis (Acute) Physical exam (Acute) Abdominal pain (Acute) Otitis media (Acute) Past Medical History Medical History Asthma No known health problems Family History Family History Father Hypertension Diabetes Mother No problems noted. Paternal Grandfather Diabetes Social History Social History Household Members: Spouse and Family Housing: House Alcohol intake: former Smoking Status: Former smoker Tobacco Type: Cigarette service: No Current occupational status: employed Meds Allergies Allergy/AdvReac Type Severity Reaction Status Date / Time pollen Allergy Unknown rASH, sob Uncoded 09/04/20 11:44 tuna Allergy Unknown anaphylaxis Uncoded 09/04/20 11:44 Active Medications: Current Medications Generic Name Dose Route Start Last Admin Trade Name Freq PRN Reason Stop Dose Admin Acetaminophen 650 mg 09/04/20 18:34 Acetaminophen 325 Mg Tablet PO Q6H PRN Fever Albuterol Sulfate 2 puff 09/04/20 22:27 Albuterol Sulfate 90 Mcg 8 Gm Inhaler INHALE RQ6H PRN shortness of breath, wheezing Hydromorphone HCl 0.5 mg 09/04/20 21:14 09/05/20 09:49 Hydromorphone Hcl 0.5 Mg/0.5 Ml Syringe IVPUSH 0.5 mg Q3H PRN Administration Pain, Severe (Pain Scale 7-10) Dextrose/Lactated Ringer's 1,000 mls @ 100 mls/hr 09/04/20 18:34 09/05/20 17:45 D5lr IVCONT Not Given .Q10H MARTINEZ Piperacillin Sod/Tazobactam 50 mls @ 100 mls/hr 09/05/20 00:00 09/05/20 12:20 Sod 3.375 gm/ Sodium Chloride IV Infused Q6H MARTINEZ Infusion Lactated Ringer's 1,000 mls @ 100 mls/hr 09/05/20 15:00 09/05/20 14:28 Lr IVCONT 100 mls/hr .Q10H MARTINEZ Administration Loratadine 10 mg 09/05/20 09:00 09/05/20 08:07 Loratadine 10 Mg Tablet PO Not Given DAILY [facility] Ondansetron HCl 4 mg 09/04/20 18:34 09/05/20 09:58 Ondansetron Hcl 4 Mg/2 Ml Vial IVPUSH 4 mg Q8H PRN Administration nausea Home Medications Medication Instructions Recorded Confirmed Last Taken Type cetirizine 10 mg tablet 10 mg PO DAILY 09/04/20 09/04/20 Unknown History fluticasone propionate spray INTRANASAL 09/04/20 Unknown History Exam Exam Date and Time: September 05, [id number] Height,Weight and Vital Signs: Height 5 ft 2 in Weight 66.224 kg Last Vital Signs Temp 98.7 F 09/05/20 14:18 Pulse 58 09/05/20 14:18 Resp 16 09/05/20 14:18 BP 112/63 09/05/20 14:18 Pulse Ox 99 09/05/20 14:18 Pertinent Lab Results Pertinent Lab Results: Laboratory Tests 09/04/20 09/04/20 09/04/20 12:58 12:58 12:58 WBC 9.3 RBC 5.39 Hgb 15.0 Hct 45.6 MCV 84.6 MCH 27.8 MCHC 32.9 RDW 12.1 Plt Count 211 MPV 11.3 Immature Gran % (Auto) 0.2 Neut % (Auto) 44.6 L Lymph % (Auto) 46.3 H [place] % (Auto) 6.0 Eos % (Auto) 2.6 Baso % (Auto) 0.3 Lymph # (Auto) 4.3 [place] # (Auto) 0.6 Eos # (Auto) 0.2 Baso # (Auto) 0.0 Abs Immat Gran (auto) 0.02 Absolute Neuts (auto) 4.2 Absolute Nucleated RBC 0.000 Nucleated RBC % (auto) 0.0 Hold Blue Top SEE NOTE Sodium 139 Potassium 4.2 Chloride 103 Carbon Dioxide 27 Anion Gap 13 BUN 13 Creatinine 0.86 Estim Creat Clear Calc 103.3 Estimated GFR > 60 Random Glucose 94 Calcium 9.6 Total Bilirubin 0.3 Direct Bilirubin < 0.2 AST 24 ALT 29 Alkaline Phosphatase 57 Total Protein 7.9 Albumin 4.8 Urine Color Urine Appearance Urine pH Ur Specific [employer] Urine Protein Urine Glucose (UA) Urine Ketones Urine Blood Urine Nitrite Ur Leukocyte Esterase COVID-19 (JOHN) COVID-19 Clin Com 09/04/20 09/04/20 09/05/20 13:09 18:06 05:48 WBC 10.9 H RBC 4.86 Hgb 13.5 L Hct 42.2 MCV 86.8 MCH 27.8 MCHC 32.0 RDW 12.0 Plt Count 196 MPV 11.9 Immature Gran % (Auto) 0.3 Neut % (Auto) 49.8 Lymph % (Auto) 40.4 H [place] % (Auto) 6.3 Eos % (Auto) 2.8 Baso % (Auto) 0.4 Lymph # (Auto) 4.4 [place] # (Auto) 0.7 Eos # (Auto) 0.3 Baso # (Auto) 0.0 Abs Immat Gran (auto) 0.03 Absolute Neuts (auto) 5.4 Absolute Nucleated RBC 0.000 Nucleated RBC % (auto) 0.0 Hold Blue Top Sodium Potassium Chloride Carbon Dioxide Anion Gap BUN Creatinine Estim Creat Clear Calc Estimated GFR Random Glucose Calcium Total Bilirubin Direct Bilirubin AST ALT Alkaline Phosphatase Total Protein Albumin Urine Color YELLOW Urine Appearance CLEAR Urine pH 6.0 Ur Specific [employer] >= 1.030 H Urine Protein NEG Urine Glucose (UA) NEG Urine Ketones 5 Urine Blood NEG Urine Nitrite NEG Ur Leukocyte Esterase NEG COVID-19 (JOHN) Negative COVID-19 Clin Com See Note Airway Mallampati Class: II TM Dist: >3cm Neck ROM: Full
[2020-09-05] MEDS: oxyCODONE HCl Immed Release 5 MG TABLET 10 MG PO ×2 (18:42→23:37)
[2020-09-05] MEDS: oxyCODONE HCl Immed Release 5 MG TABLET PO (20:02)
--- NOTE | 2020-09-05 21:35 | PC.NURSE ---
Recieved pt from PACU, assessed and stable. MAR showing 2 orders for Iv fluids (D5LR and LR). Contacted Shai Mcnamara the General Surgeon, recieved telehpone order to continue D5LR @ 60mL/hr and DC LR. New orders have been put in.
[2020-09-05] MEDS: Dextrose 5 % and Lactated Ring 1,000 ML 60 ML IVCONT (23:41)
[2020-09-06 00:26] VITALS: RESP 18
[2020-09-06] MEDS: HYDROmorphone HCl 0.5 MG/0.5 ML SYRINGE IVPUSH ×5 (00:26→12:25)
[2020-09-06 02:58] VITALS: RESP 18
[2020-09-06] MEDS: oxyCODONE HCl Immed Release 5 MG TABLET PO (05:35)
[2020-09-06 06:27] VITALS: RESP 18
[2020-09-06 07:21] VITALS: BP 133/60; PULSE 59; RESP 15; TEMP 36.7; O2SAT 99
--- NOTE | 2020-09-06 07:37 | PM.PNGS ---
Subjective Subjective Date of Service: 09/06/20 Interval history: Patient reports incisional pain; tolerated some light po last night. Physical Exam Vital Signs: Vital Signs: Last Vital Signs Temp 98.0 F 09/06/20 07:21 Pulse 59 09/06/20 07:21 Resp 15 09/06/20 07:21 BP 133/60 09/06/20 07:21 Pulse Ox 99 09/06/20 07:21 Body Mass Index 26.6 Const: General: cooperative, comfortable, no acute distress, alert and awake Resp: Effort & Inspection: normal respiratory effort GI: Other: incisions clean and intact; small amount of bloody discharged Inspection: Yes normal to inspection Skin: General skin exam: no rashes or lesions noted Extrem: General: Yes no clubbing, cyanosis or edema Progress Note: A&P Assessment and plan (1) S/P appendectomy: Problem details: 09/05/2020 Dr. Mcneal Status: Inactive Assessment and Plan: POD #1 s/p laparoscopic appendectomy. Advance to regular diet. OOB and ambulate. Will check back later today for possible discharge to home. Fall Risk Details Current Medications: Current Medications Generic Name Dose Route Start Last Admin Trade Name Freq PRN Reason Stop Dose Admin Acetaminophen 650 mg 09/04/20 18:34 Acetaminophen 325 Mg Tablet PO Q6H PRN Fever Albuterol Sulfate 2 puff 09/04/20 22:27 Albuterol Sulfate 90 Mcg 8 Gm Inhaler INHALE RQ6H PRN shortness of breath, wheezing Fentanyl 50 mcg 09/05/20 18:01 Fentanyl Citrate/Pf 100 Mcg/2 Ml Vial IVPUSH Q5M PRN Pain, Severe (Pain Scale 7-10) Fentanyl 50 mcg 09/05/20 18:03 Fentanyl Citrate/Pf 100 Mcg/2 Ml Vial IVPUSH Q5M PRN Pain, Severe (Pain Scale 7-10) Hydromorphone HCl 0.5 mg 09/04/20 21:14 09/06/20 06:27 Hydromorphone Hcl 0.5 Mg/0.5 Ml Syringe IVPUSH 0.5 mg Q3H PRN Administration Pain, Severe (Pain Scale 7-10) Dextrose/Lactated Ringer's 1,000 mls @ 60 mls/hr 09/04/20 18:34 04/20/21 23:41 D5lr IVCONT 60 mls/hr .[id number] MARTINEZ Administration Loratadine 10 mg 09/05/20 09:00 09/05/20 08:07 Loratadine 10 Mg Tablet PO Not Given DAILY MARTINEZ Ondansetron HCl 4 mg 09/04/20 18:34 09/05/20 09:58 Ondansetron Hcl 4 Mg/2 Ml Vial IVPUSH 4 mg Q8H PRN Administration nausea Ondansetron HCl 4 mg 09/05/20 18:01 Ondansetron Hcl 4 Mg/2 Ml Vial IVPUSH ONCE PRN Nausea and Vomiting Ondansetron HCl 4 mg 09/05/20 18:03 Ondansetron Hcl 4 Mg/2 Ml Vial IVPUSH ONCE PRN Nausea and Vomiting Oxycodone HCl 5 mg 09/05/20 18:18 09/06/20 05:35 Oxycodone Hcl Immed Release 5 Mg Tablet PO 5 mg Q6H PRN Administration Pain, Moderate (Pain Scale 4-6 Time Spent With Patient Time: Total time spent is greater than 50% in coordination of care (as documented) at patient's floor/unit and/or counseling patient: Time with patient: 15 - 24 minutes
[2020-09-06] MEDS: Loratadine 10 MG TABLET PO (07:39)
[2020-09-06] MEDS: Acetaminophen 325 MG TABLET 650 MG PO (07:39)
--- NOTE | 2020-09-06 10:54 | HO.POSTANES ---
Post Anesthesia Evaluation Post Anesthesia Evaluation Vital Signs: Vital Signs Temp Pulse Resp BP Pulse Ox 09/06/20 07:21 98.0 F 59 15 133/60 99 09/06/20 06:27 18 09/06/20 02:58 18 09/06/20 00:26 18 09/05/20 23:42 98 F 54 16 134/61 96 Anesthesia: General Endotracheal-GETA Mental Status: Awake Pain Control: Satisfactory Nausea/Vomiting: None Hydration: Adequate Anesthesia-Related Issues: No Anes. Related Issues
[2020-09-06 11:16] VITALS: BP 123/57; PULSE 67; RESP 18; TEMP 36.4; O2SAT 97
--- NOTE | 2020-09-06 11:56 | MHC.CM.PN ---
PATIENT IS DISCHARGED HOME WITH NO NEED FOR SERVICES. RN AWARE OF PLAN. (IN ROOM) TO TRANSPORT.
--- NOTE | 2020-09-06 12:45 | P.DS_ITS ---
DS: Providers Provider Date of Service: 09/06/20 Date of admission: 09/04/20 16:47 Primary care physician: DENIS Sibley DS: Diagnosis Discharge Diagnosis (1) S/P appendectomy: Status: Inactive Problem details: 09/05/2020 Dr. Mcneal DS: Medications Discharge Medications Home Medications: Home Medications Medication Instructions Recorded Confirmed cetirizine 10 mg tablet 10 mg PO DAILY 09/04/20 09/04/20 fluticasone propionate spray INTRANASAL 09/04/20 Previous Rx's Medication Instructions Recorded oxycodone 5 mg PO Q6H PRN #14 tab 09/06/20 DS: Summary Hospital Course Hospital Course: Mina Vincent is a 30 year old male referred to the ED from urgent care for evaluation of right lower quadrant abdominal pain. He had presented to urgent care for evaluation of right ear pain and workup in the emergency room also reveals findings consistent with right otitis media. At the urgent care, he mentioned that he was experiencing right lower quadrant abdominal pain that had started around mid day yesterday. He does not have fever but has experienced mild chills. He notes mild nausea but no vomiting. He has been able to eat. His appetite is slightly diminished. He has not experienced similar pain in the past. The pain has been persistent and slowly worsening. He does not notice it when he is lying quietly, but has pain associated with any movement. He has no urinary complaints. CT scan of the abdomen and pelvis was obtained. This revealed a larger and than usual appendix with diameter of 1.2 cm. There was no periappendiceal inflammation or fluid. There was no mesenteric lymphadenopathy noted and no additional abnormalities were seen. White blood count was normal at 9.3 with a differential showing 45% neutrophils and 46% lymphocytes. Patient was admitted to the surgical service for treatment of possible early appendicitis. He was made NPO and started on IV antibiotics. On the next hospital day the patient reported increased abdominal pain in the right lower quadrant. He felt increased pain with movement in bed. Examination revealed tenderness in the right lower quadrant over McBurney's point suggestive of acute appendicitis. As the symptoms appear to be worsening rather than improving decision was made to proceed to laparoscopic appendectomy. After discussion of the procedure, risks, and alternatives, he consented to the procedure. He was subsequently taken to the OR on 09/05/2020 for laparoscopic appendectomy. Operative findings were suggestive of early appendicitis. He tolerated the procedure well. Postoperatively he was started on a regular diet which he tolerated well without nausea or vomiting. He does report some abdominal pain in the area of the incisions. Wounds are clean and intact without redness or discharge. The patient was observed until after lunch. He tolerated his breakfast and lunch without nausea or vomiting and felt comfortable going home. He was subsequently discharged home in stable condition. Time Spent with Patient Time attestation: Total time spent providing and/or coordinating discharge services: Discharge coordination time: Less than 30 minutes Physical Exam Vital Signs: Vital Signs: Last Vital Signs Temp 97.5 F 09/06/20 11:16 Pulse 67 09/06/20 11:16 Resp 18 09/06/20 11:16 BP 123/57 L 09/06/20 11:16 Pulse Ox 97 09/06/20 11:16 Body Mass Index 26.6 Const: General: cooperative, healthy appearing, comfortable, no acute distres s, well developed, alert, awake and Physically active Resp: Effort & Inspection: normal respiratory effort GI: Other: Trocar incisions in the lower abdomen are clean, dry, and intact without redness or discharge. Abdomen is otherwise soft. Skin: Other: Warm, dry, no rash Extrem: General: Yes no clubbing, cyanosis or edema DS: Data Data Completed and Pending Pending studies at discharge: Pending at discharge 09/05/20 17:39 Surgical [PTH] Routine Discharge Plan Discharge Patient Disposition: Home, Self-Care Discharge Diagnosis: Acute appendicitis Referrals: Josh Downing FNP- [Primary Care Provider] - 1 Week Josh Mcneal MD [Physician] - 2 Weeks Discharge Medications: New oxycodone 5 mg Tablet 5 mg PO Q6H PRN (Reason: Pain, Moderate (Pain Scale 4-6) Qty: 14 RF: 0 Continued fluticasone propionate 50 mcg/actuation spray,suspension intranasal RF: 0 cetirizine 10 mg tablet 10 mg PO DAILY RF: 0 Discharge Orders: Discharge Order (Routine); Ordered 09/06/20 Ordered By: Josh Mcneal Diet: advance to usual diet Activity on Discharge: No heavy lifting Stand Alone Forms: Patient Portal Discharge page Care Plan Goals: Return to normal activity and normal diet Health Concerns: Acute appendicitis Plan of Treatment: Laparoscopic appendectomy Assessment: Acute appendicitis Patient Instructions: Laparoscopic Appendectomy (DC)
== END 2020-09-06 13:03 | disposition home or self-care (01) | DRG 343 ==
LOC: HO.ED 12:25 → HO.S3 17:14
PROVIDERS: Nurse Practitioner Family; Surgery; Admitting Provider Surgery; Emergency Provider Emergency Medicine; PCP Nurse Practitioner Family; Visit Provider Surgery
PROC: 0DTJ4ZZ Resection of Appendix, Percutaneous Endoscopic Approach (ICD-10-PCS; CPT 44970; principal; 2020-09-05 14:20)
DX: K35.80 Unspecified acute appendicitis (principal); H66.91 Otitis media, unspecified, right ear; Z20.822 Contact with and (suspected) exposure to COVID-19; Z79.51 Long term (current) use of inhaled steroids; Z87.891 Personal history of nicotine dependence; Z79.899 Other long term (current) drug therapy
CPT/HCPCS: 44970; 36415; 74177; 80048; 80076; 81003; 85025; 87635; 88304; 93005; 96374; 99024; 99285; J0330; J0690; J1100; J1170; J2250; J2270; J2405; J2543; J3010

== ENCOUNTER 2020-09-09 15:08 | Emergency (ER) | payer OTHER, SELFPAY ==
--- NOTE | ~2020-09-09 | CT_ITS ---
EXAMINATION: CT ABDOMEN AND PELVIS WITH CONTRAST CLINICAL INFORMATION: 2 days postop appendicitis. Fever. Evaluate for abscess COMPARISON: 09/04/2020 TECHNIQUE: Multidetector volumetric images were obtained from the superior aspect of the liver through the pubic symphysis following administration 85 mL of Omnipaque 350 intravenous contrast. Sagittal and coronal reformatted images were obtained on the technologist's workstation. Oral contrast: No This CT examination was performed using dose optimization techniques as appropriate, variously including the following: *Automated exposure control *Adjustment of mA and/or kV according to patient size (this includes techniques or standardized protocols for targeted exams where dose is matched to indication/reason for exam; i.e. extremities or head) *Use of iterative reconstruction technique DLP: 386 mGy-cm FINDINGS: LUNG BASES: The visualized lung bases are unremarkable. LIVER, GALLBLADDER, AND BILIARY TREE: There is a granuloma at the junction of the right and left lobes of liver in image 7/80. No concerning focal liver lesion. The gallbladder is unremarkable with no evidence of radiopaque gallstones, gallbladder wall thickening, or obvious pericholecystic inflammatory changes. PANCREAS: Normal. SPLEEN: Normal. ADRENAL GLANDS: No adrenal mass. KIDNEYS AND URETERS: The kidneys are normal in size, shape, and attenuation. No hydronephrosis, hydroureter, or calculi seen. No perinephric stranding. BLADDER: Unremarkable. GASTROINTESTINAL TRACT: Stomach and small bowel are nondilated. There are postoperative changes of the cecum consistent with prior appendectomy. There is minimal adjacent haziness and stranding of the fat, not unexpected following recent appendectomy. No discrete fluid collection to suggest an abscess however. ABDOMINAL WALL: There are postoperative changes in the region of the umbilicus and left lower quadrant consistent with laparoscopic portals. LYMPH NODES: No lymphadenopathy. VASCULAR: Unremarkable. PELVIC VISCERA: Unremarkable. OSSEOUS STRUCTURES: Unremarkable. CT/CT abdomen pelvis w con IMPRESSION: Expected postoperative appearance status post recent appendectomy. No abscess seen.
--- NOTE | ~2020-09-09 | XR_ITS ---
EXAMINATION: XR CHEST CLINICAL INFORMATION: 2 days postop appendectomy, fever, rule out pneumonia. COMPARISON: 02/19/2018 chest radiographs. TECHNIQUE: 2 views of the chest were obtained. FINDINGS: No significant abnormality is noted involving the heart, lungs, mediastinum, bony thorax or soft tissues. XR/XR chest 2V IMPRESSION: No acute cardiopulmonary process.
[2020-09-09 15:36] VITALS: BP 137/66; PULSE 72; RESP 16; TEMP 37.3; O2SAT 97; BMI 27.6
--- NOTE | 2020-09-09 16:14 | ED_ITS ---
HPI - General Adult General Chief complaint: Wound/Laceration Stated complaint: post op infection? Time Seen by Provider: 09/09/20 15:51 Source: patient and family (, Crissy) Mode of arrival: ambulatory Limitations: no limitations History of Present Illness HPI narrative: 30-year-old male 3 days postop from appendectomy who presents emergency department for evaluation of fever, chills, diaphoresis, urinary neida quency and rectal discharge. Patient states that prior to being diagnosed with appendicitis he developed bilateral ear pain. He was diagnosed with bilateral otitis media , he never took any antibiotics and the next day he was diagnosed with appendicitis on 08/26/2020. His CT scan revealed an enlarged appendix with no evidence of abscess or inflammatory changes, he was hospitalized overnight, his pain get worse he then had an appendectomy on 09/06/2020. He has been 1 day in the hospital. Since going home he states these developed chills followed by fever and urinary frequency. He states that his abdominal pain improved after the surgery, is still present and is located in his lower abdomen. Describes the pain as a constant, dull ache which is worse in the left lower quadrant than on the right. He has had urinary frequency and dysuria. He noticed a yellow discharge per rectum for 1 day but this is resolved, he denied diarrhea. He has had mild myalgias. He denied sore throat, ear pain, chest pain, shortness of breath, dyspnea on exertion, cough, nausea, vomiting, loss of sense of taste or smell. The patient has not had a COVID-19 infection. He has not been vaccinated for COVID-19. Related Data Home Medications Medication Instructions Recorded Confirmed cetirizine 10 mg tablet 10 mg PO DAILY 09/04/20 09/04/20 fluticasone propionate spray INTRANASAL 09/04/20 Previous Rx's Medication Instructions Recorded oxycodone 5 mg PO Q6H PRN #14 tab 09/06/20 Allergies Allergy/AdvReac Type Severity Reaction Status Date / Time pollen Allergy Unknown rASH, sob Uncoded 09/04/20 11:44 tuna Allergy Unknown anaphylaxis Uncoded 09/04/20 11:44 Review of Systems Review of Systems: Yes all other systems are reviewed and are negative PMFSH Past Medical History [facility] Narrative: The patient has no chronic medical conditions. He denies tobacco, alcohol and drug use. He is and his is here in the emergency department with him. Medical History (Updated 09/09/20 @ 18:28 by Adonay Marino MD) Asthma No known health problems Surgical History S/P appendectomy Family History Family History Father Hypertension Diabetes Mother No problems noted. Paternal Grandfather Diabetes Social History Social History Household Members: Spouse and Family Housing: House Alcohol intake: former Smoking Status: Former smoker Tobacco Type: Cigarette Advance Directives: No Advance Directives Information Provided: Yes service: No Current occupational status: employed Physical Exam Vital Signs: Vital Signs: Last Vital Signs Temp 99.1 F 09/09/20 15:36 Pulse 72 09/09/20 15:36 Resp 16 09/09/20 15:36 BP 137/66 09/09/20 15:36 Pulse Ox 97 09/09/20 15:36 Body Mass Index 27.6 Const: General: cooperative and healthy appearing Orientation/consci ousness: oriented to person and oriented to place Limitations: no limitations HENMT: Head: Yes normal to inspection, Yes normocephalic and Yes atraumatic Ears: external ears normal and TM's normal bilaterally General nose exam: Normal external nose present Face and sinus: Yes normal facial exam Mouth: Normal oral and palatal mucosa present Throat: Yes tonsils normal, Yes uvula midline and Yes other (Left posterior exudates with erythema) Eyes: Periorbital: periorbital findings normal Eyelids: Yes eyelids normal Conjunctivae: conjunctivae normal Sclerae: sclerae normal Corneas: corneas normal Pupils: Equal, round and reactive pupils present Direct Ophthalmoscopy: normal light reflex Neck: Neck: Yes full ROM, Yes no lymphadenopathy, Yes no meningeal signs, Yes trachea midline and Yes supple Chest: Chest palpation & inspection: normal inspection of the chest and normal palpation of entire chest wall Resp: Effort & Inspection: normal respiratory effort and able to speak in complete sentences Auscultation: clear to auscultation bilaterally Cardio: Rate: regular rate Rhythm: regular rhythm Heart sounds: S1 normal heart sound present, S2 normal heart sound present and no murmurs GI: Inspection: Yes normal to inspection Palpation (GI): Soft to palpation, Tenderness to palpation present (GI) in the LLQ (Moderate), in the RLQ (Mod erate) and suprapubicly (Mild), no guarding, not rigid and No hepatosplenomegaly present : General: Yes no CVA tenderness Back/Spine/Pelvis: Back: no CVA tenderness Cervical Spine: normal cervical lordosis Thoracic/Lumbar Spine: thoracic and lumbar spine normal to inspection Skin: Lesions: no lesions Rashes: no rashes Wounds: no wounds Neuro: General: oriented to person, oriented to place and no meningeal signs Cranial nerves: Yes CN's II-XII intact bilaterally and Yes Equal, round and reactive pupils present Cognition (Neuro): normal cognition Motor exam (neuro): 5/5 motor strength present throughout Extrem: General: Yes normal to inspection and Yes full ROM Psych: Appearance: well kempt Mental Status: mental status grossly normal Speech and movement: Normal speech and movement present Affect: normal affect Attitude: cooperative Thought process: Normal thought process present Thought content: Normal thought content present Course Course Course Narrative: 30-year-old male, 3 days postop appendectomy who presents emergency department for evaluation of fever, chills, diaphoresis, lack of appetite, rectal discharge (resolved), frequency and dysuria. Physical examination did reveal left posterior pharyngeal exudates with erythema and moderate lower abdominal tenderness. Vital signs were stable with a slight elevation in his temperature of 99.1?. The differential includes but is not limited to acute viral syndrome, COVID-19 infection, pharyngitis, urinary tract infection, postsurgical infection/abscess, pneumonia. I did order a CBC, CMP, lactic acid, blood cultures x2, rapid strep, COVID-19, and CT of the abdomen pelvis with IV contrast. Patient was ordered to get normal saline x1 L IV. 1824: The patient's laboratory evaluation was unremarkable. The patient's urinalysis, COVID-19, rapid strep were negative. Chest x-ray and urinalysis were negative. The patient's CT scan of the abdomen pelvis was consistent with postsurgical changes with no acute findings to explain his fever. At this time, I suspect the patient may have a viral infection in the did discuss this with him. I did tell him that there is a throat culture that should be back in 2-3 days and he should check this on the patient portal and that we should contact him if it is positive for Streptococcus. Patient was advised to follow-up with his PCP and with the surgeon for re-evaluation. Was advised return to the emergency department if his symptoms get worse or if you develop any new symptoms that are concerning to him. Medical Decision Making Lab Data Result diagrams: 09/09/20 16:32 09/09/20 16:32 Labs: Lab Results 09/09/20 09/09/20 09/09/20 Range/Units 16:32 16:32 16:32 WBC 9.8 (4.8-10.8) X10*3/uL RBC 5.17 (4.60-5.80) X10*6/uL Hgb 15.0 (14.0-18.0) g/dl Hct 43.1 (42-52) % MCV 83.4 (80-98) fL MCH 29.0 (27.0-33.0) pg MCHC 34.8 (31.0-36.0) g/dl RDW 11.6 (11.0-16.0) % Plt Count 227 (160-400) X10*3/uL MPV 11.1 (9.4-12.4) fL Immature Gran % (Auto) 0.3 (0.0-0.4) % Neut % (Auto) 51.6 (45-73) % Lymph % (Auto) 37.7 (20-40) % [facility] % (Auto) 7.4 (2-11) % Eos % (Auto) 2.7 (0-4) % Baso % (Auto) 0.3 (0-2) % Lymph # (Auto) 3.7 (1.2-4.9) X10*3/uL [facility] # (Auto) 0.7 (0.1-1.2) X10*3/uL Eos # (Auto) 0.3 (0.0-0.4) X10*3/uL Baso # (Auto) 0.0 (0.0-0.2) X10*3/uL Abs Immat Gran (auto) 0.03 (0.00-0.03) X10*3/uL Absolute Neuts (auto) 5.1 (2.0-8.3) X10*3/uL Absolute Nucleated RBC 0.000 (0.0-0.012) X10*3/uL Nucleated RBC % (auto) 0.0 (0.0-0.2) /100WBC Sodium 139 (135-145) mmol/L Potassium 4.2 (3.3-5.1) mmol/L Chloride 103 (96-108) mmol/L Carbon Dioxide 26 (22-29) mmol/L Anion Gap 14 (12-20) BUN 9 (9-16) mg/dL Creatinine 0.79 (0.5-1.4) mg/dL Estim Creat Clear Calc 109.8 Estimated GFR > 60 Random Glucose 98 (60-115) mg/dL Lactic Acid 1.1 (0.5-2.0) mmol/L Calcium 9.6 (8.4-10.2) mg/dL Total Bilirubin 0.3 (0.0-1.0) mg/dL AST 33 (5-37) U/L ALT 45 H (0-40) U/L Alkaline Phosphatase 60 (39-117) U/L Total Protein 8.3 H (6.5-8.0) g/dL Albumin 4.4 (3.5-5.0) g/dL Lipase 30 (8-78) U/L Urine Color Urine Appearance Urine pH (5.0-8.0) Ur Specific English (1.005-1.025) Urine Protein (NEG-TRACE) MG/DL Urine Glucose (UA) (NEG) MG/DL Urine Ketones (NEG) MG/DL Urine Blood (NEG) Urine Nitrite (NEG) Ur Leukocyte Esterase (NEG) COVID-19 (JOHN) (Negative) COVID-19 Clin Com 09/09/20 09/09/20 Range/Units 16:32 16:32 WBC (4.8-10.8) X10*3/uL RBC (4.60-5.80) X10*6/uL Hgb (14.0-18.0) g/dl Hct (42-52) % MCV (80-98) fL MCH (27.0-33.0) pg MCHC (31.0-36.0) g/dl RDW (11.0-16.0) % Plt Count (160-400) X10*3/uL MPV (9.4-12.4) fL Immature Gran % (Auto) (0.0-0.4) % Neut % (Auto) (45-73) % Lymph % (Auto) (20-40) % [facility] % (Auto) (2-11) % Eos % (Auto) (0-4) % Baso % (Auto) (0-2) % Lymph # (Auto) (1.2-4.9) X10*3/uL [facility] # (Auto) (0.1-1.2) X10*3/uL Eos # (Auto) (0.0-0.4) X10*3/uL Baso # (Auto) (0.0-0.2) X10*3/uL Abs Immat Gran (auto) (0.00-0.03) X10*3/uL Absolute Neuts (auto) (2.0-8.3) X10*3/uL Absolute Nucleated RBC (0.0-0.012) X10*3/uL Nucleated RBC % (auto) (0.0-0.2) /100WBC Sodium (135-145) mmol/L Potassium (3.3-5.1) mmol/L Chloride (96-108) mmol/L Carbon Dioxide (22-29) mmol/L Anion Gap (12-20) BUN (9-16) mg/dL Creatinine (0.5-1.4) mg/dL Estim Creat Clear Calc Estimated GFR Random Glucose (60-115) mg/dL Lactic Acid (0.5-2.0) mmol/L Calcium (8.4-10.2) mg/dL Total Bilirubin (0.0-1.0) mg/dL AST (5-37) U/L ALT (0-40) U/L Alkaline Phosphatase (39-117) U/L Total Protein (6.5-8.0) g/dL Albumin (3.5-5.0) g/dL Lipase (8-78) U/L Urine Color YELLOW Urine Appearance CLEAR Urine pH 6.0 (5.0-8.0) Ur Specific English 1.025 (1.005-1.025) Urine Protein NEG (NEG-TRACE) MG/DL Urine Glucose (UA) NEG (NEG) MG/DL Urine Ketones NEG (NEG) MG/DL Urine Blood NEG (NEG) Urine Nitrite NEG (NEG) Ur Leukocyte Esterase NEG (NEG) COVID-19 (JOHN) Negative (Negative) COVID-19 Clin Com See Note Discharge Plan Discharge Clinical Impression: Diaphoresis Fever Qualifiers: Fever type: unspecified Qualified Code(s): R50.9 - Fever, unspecified Abdominal pain Qualifiers: Abdominal location: lower abdomen, unspecified Qualified Code(s): R10.30 - Lower abdominal pain, unspecified Patient Disposition: Home, Self-Care Additional Instructions: Your evaluation today did not reveal a clear source for your symptoms. Your laboratory evaluation was normal. The rapid strep test was negative, throat culture is pending and should be back in 3 days. You should check this result on the patient portal to make sure that the throat culture is negative especially if you do not hear from us in 2-3 days about a positive culture. Your chest x-ray was normal. Urinalysis was normal. The CT scan of your abdomen pelvis did not reveal a clear cause for your fever, the findings are consistent with changes that you would see after surgery. Take ibuprofen 200 mg pills, 3 pills every 6 hours as needed for pain or fever. Take Tylenol (acetaminophen) 500 mg pills, 2 pills every 4 to 6 hours as needed for pain or fever. Follow-up with your doctor in 2 days. Follow-up with your surgeon in 2 weeks. Please return to the emergency department if your symptoms get worse or if you develop any symptoms that are concerning to you. Prescriptions: No Action fluticasone propionate 50 mcg/actuation spray,suspension intranasal RF: 0 oxycodone 5 mg Tablet 5 mg PO Q6H PRN (Reason: Pain, Moderate (Pain Scale 4-6) Qty: 14 RF: 0 cetirizine 10 mg tablet 10 mg PO DAILY RF: 0 Referrals: Josh Mcneal MD [Physician] - 2 weeks Interventions: ED Discharge Assessment Last Done: 09/09/20 18:37 Discharge Date/Time: 09/09/20 18:37
[2020-09-09] MEDS: 0.9 % Sodium Chloride 1,000 ML 999 ML IV (16:38)
[2020-09-09 16:39] LABS: MANUAL DIFF FLAG NO
[2020-09-09 16:40] LABS: Basophils Percent Auto 0.3 % (0-2); Eosinophils Absolute Auto 0.3 X10*3/uL (0.0-0.4); Eosinophils Percent Auto 2.7 % (0-4); Hematocrit 43.1 % (42-52); Imm Gran Abs Auto 0.03 X10*3/uL (0.00-0.03); Imm Gran Pct Auto 0.3 % (0.0-0.4); Lymphocytes Absolute Auto 3.7 X10*3/uL (1.2-4.9); Lymphocytes Percent Auto 37.7 % (20-40); Mean Corpuscular HGB Conc 34.8 g/dl (31.0-36.0); Mean Corpuscular Volume 83.4 fL (80-98); Mean Platelet Volume 11.1 fL (9.4-12.4); Monocytes Absolute Auto 0.7 X10*3/uL (0.1-1.2); Monocytes Percent Auto 7.4 % (2-11); Neutrophils Absolute Auto 5.1 X10*3/uL (2.0-8.3); Neutrophils Percent Auto 51.6 % (45-73); Platelet Count 227 X10*3/uL (160-400); Red Blood Count 5.17 X10*6/uL (4.60-5.80); Red Cell Distribution Width 11.6 % (11.0-16.0); White Blood Count 9.8 X10*3/uL (4.8-10.8)
[2020-09-09 16:53] LABS: Glucose Urine UA NEG (NEG); Leukocyte Esterase Urine NEG (NEG); Nitrite Urine NEG (NEG); Specific Gravity - Urine 1.025 (1.005-1.025); Urine Blood NEG (NEG); Urine Ketones NEG (NEG); Urine Protein NEG (NEG-TRACE)
[2020-09-09 16:54] LABS: Appearance Urine CLEAR; Color Urine YELLOW
[2020-09-09 17:05] LABS: Lactic Acid 1.1 mmol/L (0.5-2.0)
[2020-09-09 17:09] LABS: COVID-19 Test Negative (Negative)
[2020-09-09 17:13] LABS: Alanine Aminotransferase 45 U/L (0-40); Albumin Level 4.4 g/dL (3.5-5.0); Alkaline Phosphatase 60 U/L (39-117); Anion Gap 14 (12-20); Aspartate Amino Transferase 33 U/L (5-37); Bilirubin Total 0.3 mg/dL (0.0-1.0); Blood Urea Nitrogen 9 mg/dL (9-16); Calcium 9.6 mg/dL (8.4-10.2); Carbon Dioxide 26 mmol/L (22-29); Chloride 103 mmol/L (96-108); Creatinine Clr Calc Pharmacy 109.8; Estimated Glomerular Filt Rate > 60; Glucose Random 98 mg/dL (60-115); Lipase 30 U/L (8-78); Potassium 4.2 mmol/L (3.3-5.1); Sodium 139 mmol/L (135-145); Total Protein 8.3 g/dL (6.5-8.0)
[2020-09-09] MEDS: iohexoL 350 MG/ML 100 ML INFUS..BTL IV (17:52)
== END 2020-09-09 18:37 | disposition home or self-care (01) ==
PROVIDERS: Emergency Provider Emergency Medicine Emergency Medical Services; PCP Nurse Practitioner Family
DX: R61 Generalized hyperhidrosis (principal); R50.9 Fever, unspecified; R10.30 Lower abdominal pain, unspecified; Z20.822 Contact with and (suspected) exposure to COVID-19
CPT/HCPCS: 36415; 71046; 74177; 80053; 81003; 83605; 83690; 85025; 87040; 87071; 87635; 87880; 96360; 99284; Q9967

== ENCOUNTER → 2020-09-22 09:56 | Outpatient (BNVA) | payer OTHER, SELFPAY | PROVIDERS: PCP Nurse Practitioner Family; Referring Provider Nurse Practitioner Family; Visit Provider Surgery ==

== ENCOUNTER 2020-10-26 | Outpatient (REF) | payer OTHER, SELFPAY ==
[2020-10-26 11:22] LABS: FIT Int Ctl YES; FIT1 NEGATIVE (NEGATIVE); FIT2 NEGATIVE (NEGATIVE)
== END 2020-10-26 00:01 | disposition home or self-care (01) ==
LOC: HO.HMGCLNP
PROVIDERS: Visit Provider Nurse Practitioner Family
DX: Z12.11 Encounter for screening for malignant neoplasm of colon (principal)
CPT/HCPCS: 82274

== ENCOUNTER 2020-11-01 09:53 | Outpatient (REF) | payer OTHER, SELFPAY ==
--- NOTE | ~2020-11-01 | CT_ITS ---
EXAMINATION: CT CHEST WITH CONTRAST CLINICAL INFORMATION: Hemoptysis COMPARISON: Previous chest x-ray August 2020 and CTA chest July 2018 TECHNIQUE: Multidetector volumetric CT imaging of the chest was obtained after the administration of 65 mL of Omnipaque 350 intravenous contrast without immediate adverse reactions. Axial MIP volume rendering provided. Sagittal and coronal reformatted images were obtained. This CT examination was performed using dose optimization techniques as appropriate, variously including the following: *Automated exposure control *Adjustment of mA and/or kV according to patient size (this includes techniques or standardized protocols for targeted exams where dose is matched to indication/reason for exam; i.e. extremities or head) *Use of iterative reconstruction technique DLP: 103 mGy-cm FINDINGS: FLIGHT SURVEYOR: Unremarkable LUNGS: The lungs are clear. MEDIASTINUM: The mediastinum is normal. PLEURA: There is no pleural effusion. No pleural mass or thickening. AXILLA: No lymphadenopathy. UPPER ABDOMEN: Unremarkable OSSEOUS STRUCTURES: Unremarkable CT/CT chest w con IMPRESSION: Unremarkable examination.
[2020-11-01] MEDS: iohexoL 350 MG/ML 100 ML INFUS..BTL IV (10:42)
== END 2020-11-01 09:54 | disposition home or self-care (01) ==
LOC: HO.CT 09:53
PROVIDERS: PCP Nurse Practitioner Family; Visit Provider Nurse Practitioner Family
DX: R04.2 Hemoptysis (principal)
CPT/HCPCS: 71260; Q9967

== ENCOUNTER 2020-11-15 17:43 | Emergency (ER) | payer OTHER, SELFPAY ==
[2020-11-15 17:53] VITALS: BP 135/75; PULSE 70; RESP 18; TEMP 36.4; O2SAT 98; BMI 27.6
[2020-11-15 18:07] LABS: MANUAL DIFF FLAG NO
[2020-11-15 18:23] LABS: Basophils Percent Auto 0.3 % (0-2); Eosinophils Absolute Auto 0.4 X10*3/uL (0.0-0.4); Eosinophils Percent Auto 4.1 % (0-4); Hematocrit 38.9 % (42-52); Hemoglobin 13.2 g/dl (14.0-18.0); Imm Gran Abs Auto 0.02 X10*3/uL (0.00-0.03); Imm Gran Pct Auto 0.2 % (0.0-0.4); Lymphocytes Absolute Auto 4.7 X10*3/uL (1.2-4.9); Lymphocytes Percent Auto 45.1 % (20-40); Mean Corpuscular HGB Conc 33.9 g/dl (31.0-36.0); Mean Corpuscular Hemoglobin 28.3 pg (27.0-33.0); Mean Corpuscular Volume 83.5 fL (80-98); Mean Platelet Volume 11.6 fL (9.4-12.4); Monocytes Absolute Auto 0.5 X10*3/uL (0.1-1.2); Monocytes Percent Auto 4.9 % (2-11); Neutrophils Absolute Auto 4.8 X10*3/uL (2.0-8.3); Neutrophils Percent Auto 45.4 % (45-73); Platelet Count 179 X10*3/uL (160-400); Red Blood Count 4.66 X10*6/uL (4.60-5.80); Red Cell Distribution Width 12.1 % (11.0-16.0); White Blood Count 10.5 X10*3/uL (4.8-10.8)
[2020-11-15 18:35] LABS: Anion Gap 12 (12-20); Blood Urea Nitrogen 14 mg/dL (9-16); Calcium 9.3 mg/dL (8.4-10.2); Carbon Dioxide 25 mmol/L (22-29); Chloride 105 mmol/L (96-108); Creatinine Clr Calc Pharmacy 89.3; Estimated Glomerular Filt Rate > 60; Glucose Random 133 mg/dL (60-115); Potassium 3.6 mmol/L (3.3-5.1); Sodium 138 mmol/L (135-145)
== END 2020-11-15 19:58 | disposition left against medical advice (07) ==
PROVIDERS: Emergency Provider Emergency Medicine; PCP Nurse Practitioner Family
DX: R51.9 Headache, unspecified (principal)
CPT/HCPCS: 36415; 80048; 85025; 99282; 99283

== ENCOUNTER 2020-12-01 07:41 | Emergency (ER) | payer OTHER, SELFPAY ==
--- NOTE | ~2020-12-01 | CT_ITS ---
EXAMINATION: CT HEAD WITHOUT CONTRAST CLINICAL INFORMATION: Headache for over one month COMPARISON: None TECHNIQUE: Contiguous axial imaging was performed from the skull base to vertex without intravenous administration of contrast. This CT examination was performed using dose optimization techniques as appropriate, variously including the following: *Automated exposure control *Adjustment of mA and/or kV according to patient size (this includes techniques or standardized protocols for targeted exams where dose is matched to indication/reason for exam; i.e. extremities or head) *Use of iterative reconstruction technique DLP: 935 mGy-cm FINDINGS: There is no evidence of acute intracranial hemorrhage or territorial infarction. No abnormal mass effect or midline shift is seen. Mays to white matter differentiation is well preserved. No extra-axial fluid collections are identified. The ventricles are normal in size. There is no abnormal attenuation within the brain parenchyma. The osseous structures and soft tissues are normal. The mastoid air cells and visualized portions of the paranasal sinuses are well aerated. There are small bilateral subcentimeter masses in the parotid glands. This may represent intraparotid lymph nodes are there is prominent adenoidal soft tissue. CT/CT head/brain wo con IMPRESSION: No acute intracranial pathology.
--- NOTE | 2020-12-01 07:59 | ED_ITS ---
HPI - General Adult General Chief complaint: General Medical Stated complaint: Coughing up blood, eye pain Time Seen by Provider: 12/01/20 07:54 Source: patient Mode of arrival: ambulatory Limitations: no limitations History of Present Illness HPI narrative: 30 yo female with visits to his PCP since 10/25 for headaches and hemoptysis has had CT chest on 11/01 that was completely clear, went to the PCP again on 11/15 and c/o headache there appears to be order for CT head but it was denied by his insurance, comes in today with c/o persistent daily headaches and when they occur he notes that he isn't coughing up blood he spits blood that he feels is coming from his sinuses complaint: headache, spitting up blood Onset (ago): week(s) (6) Location: head Severity: moderate Quality: aching and constant Pain Consistency: constant Relieving factors: none Exacerbating factors: other (feels like if he is concentrating too hard) Associated symptoms: other (tingling in extremities, spitting up blood that he feels is coming from his sinuses when he has headaches) Treatments prior to arrival: none Related Data Home Medications Medication Instructions Recorded Confirmed cetirizine 10 mg tablet 10 mg PO DAILY 09/04/20 10/25/20 fluticasone propionate spray INTRANASAL 09/04/20 10/25/20 Previous Rx's Medication Instructions Recorded zoajdnzphn-zosujmjndtmpr-qims 1 tab PO Q6H PRN #20 tab 12/01/20 fluticasone propionate 1 spray INTRANASAL DAILY #16 g 12/01/20 sodium chloride [[place] Nasal] 1 spray INTRANASAL BID PRN #30 ml 12/01/20 Allergies Allergy/AdvReac Type Severity Reaction Status Date / Time pollen Allergy Unknown rASH, sob Uncoded 09/19/20 07:22 tuna Allergy Unknown anaphylaxis Uncoded 09/19/20 07:22 Review of Systems Review of Systems: Constitutional : No Fever, No Chills, No Fatigue ENT/Mouth : No sore throat, No Rhinorrhea, pos bleeding episodes Eyes: pos Eye Pain, No Swelling, No Redness Cardiovascular : No Chest Pain, No SOB, No Dyspnea on Exertion Respiratory : No Cough, No Sputum Gastrointestinal : No Nausea, No Vomiting, No Diarrhea, No abdominal Pain Genitourinary : No Dysuria, No Urinary Frequency, No Hematuria, Musculoskeletal : No joint pain, No Myalgias, No Joint Swelling Skin : No Skin Lesions, No rash Neuro : No Weakness, pos parasthesias, No Dizziness, positive Headache Psych : No Anxiety/Panic, No Depression Heme/Lymph: No Bruising, No Bleeding,No Lymphadenopathy Endocrine : No Polyuria, No Polydipsia All other systems reviewed and are negative [facility] Past Medical History Attestation statement: The following information was validated with the patient. Medical History Asthma No known health problems Surgical History S/P appendectomy Family History Family History Father Hypertension Diabetes Mother No problems noted. Paternal Grandfather Diabetes Social History Social History Household Members: Spouse and Family Housing: House Do you presently have visiting nurse or other home services: No Alcohol intake: former Patient Tobacco Use Status: Former Tobacco user Advance Directives: No Advance Directives Information Provided: No service: No Current occupational status: employed Physical Exam Vital Signs: Vital Signs: Last Vital Signs Temp 98.3 F 12/01/20 08:05 Pulse 61 12/01/20 08:05 Resp 18 12/01/20 08:05 BP 129/61 12/01/20 08:05 Pulse Ox 99 12/01/20 08:05 Body Mass Index 26.9 Appearance: Alert. Oriented X3. No acute distress. Eyes: Pupils equal, round and reactive to light. ENT: Pharynx normal. L nares is inflammed with some septal cracking noted, bilateral normal TMs Neck: Normal inspection. Neck supple. CVS: Normal heart rate and rhythm. Pulses normal. Respiratory: No respiratory distress. Breath sounds normal. Abdomen: Soft and nontender. Skin: Skin warm and dry. Normal skin color. Normal skin turgor. Extremities: No lower extremity edema. No calf ttp Neuro: Oriented X 3. No motor deficit. No sensory deficit. normal gait Course Course Course Narrative: H/H stable platelets and coags stable as well no acute findings on CT scan can follow up with PCP and ENT Medical Decision Making MDM Narrative Medical decision making narrative: 30 yo female with visits to his PCP since 10/25 for headaches and hemoptysis has had CT chest on 11/01 that was completely clear, went to the PCP again on 11/15 and c/o headache there appears to be order for CT head but no results yet, comes in today with c/o persistent daily headaches and when they occur he notes that he isn't coughing up blood he spits blood that he feels is coming from his sinuses - at this time will repeat basic labs and obtain CT head for mass - could be related to sinuses and bleeding could be coming from the nose, no other bleeding issue had normal stool studies as well - dispo per results and improvement Lab Data Result diagrams: 12/01/20 08:15 12/01/20 08:15 Labs: Lab Results 12/01/20 12/01/20 12/01/20 Range/Units 08:15 08:15 08:15 WBC 9.1 (4.8-10.8) X10*3/uL RBC 4.95 (4.60-5.80) X10*6/uL Hgb 14.0 (14.0-18.0) g/dl Hct 41.6 L (42-52) % MCV 84.0 (80-98) fL MCH 28.3 (27.0-33.0) pg MCHC 33.7 (31.0-36.0) g/dl RDW 12.3 (11.0-16.0) % Plt Count 207 (160-400) X10*3/uL MPV 11.0 (9.4-12.4) fL Immature Gran % (Auto) 0.2 (0.0-0.4) % Neut % (Auto) 44.5 L (45-73) % Lymph % (Auto) 43.5 H (20-40) % Gage % (Auto) 6.7 (2-11) % Eos % (Auto) 4.7 H (0-4) % Baso % (Auto) 0.4 (0-2) % Lymph # (Auto) 4.0 (1.2-4.9) X10*3/uL Gage # (Auto) 0.6 (0.1-1.2) X10*3/uL Eos # (Auto) 0.4 (0.0-0.4) X10*3/uL Baso # (Auto) 0.0 (0.0-0.2) X10*3/uL Abs Immat Gran (auto) 0.02 (0.00-0.03) X10*3/uL Absolute Neuts (auto) 4.1 (2.0-8.3) X10*3/uL Absolute Nucleated RBC 0.000 (0.0-0.012) X10*3/uL Nucleated RBC % (auto) 0.0 (0.0-0.2) /100WBC PT 11.6 (9.9-13.0) SEC INR 1.0 (0.9-1.1) APTT 36.9 (24.1-38.0) SEC Sodium 140 (135-145) mmol/L Potassium 4.1 (3.3-5.1) mmol/L Chloride 108 (96-108) mmol/L Carbon Dioxide 26 (22-29) mmol/L Anion Gap 10 L (12-20) BUN 12 (9-16) mg/dL Creatinine 0.88 (0.5-1.4) mg/dL Estim Creat Clear Calc 105.2 Estimated GFR > 60 Random Glucose 97 (60-115) mg/dL Calcium 9.7 (8.4-10.2) mg/dL Magnesium 2.2 (1.6-2.6) mg/dL Total Bilirubin 0.4 (0.0-1.0) mg/dL Direct Bilirubin < 0.2 (0.0-0.5) mg/dL AST 23 (5-37) U/L ALT 29 (0-40) U/L Alkaline Phosphatase 64 (39-117) U/L Total Protein 7.7 (6.5-8.0) g/dL Albumin 4.5 (3.5-5.0) g/dL Discharge Plan Discharge Clinical Impression: Headache Qualifiers: Headache type: unspecified Headache chronicity pattern: chronic headache Intractability: intractable Qualified Code(s): R51.9 - Headache, unspecified Patient Disposition: Home, Self-Care Instructions: Acute Headache (ED) Additional Instructions: return to ED for any worsening symptoms or concerns your blood work was normal CT head: FINDINGS: There is no evidence of acute intracranial hemorrhage or territorial infarction. No abnormal mass effect or midline shift is seen. Mays to white matter differentiation is well preserved. No extra-axial fluid collections are identified. The ventricles are normal in size. There is no abnormal attenuation within the brain parenchyma. The osseous structures and soft tissues are normal. The mastoid air cells and visualized portions of the paranasal sinuses are well aerated. There are small bilateral subcentimeter masses in the parotid glands. This may represent intraparotid lymph nodes are there is prominent adenoidal soft tissue. CT/CT head/brain wo con IMPRESSION: No acute intracranial pathology. Prescriptions: New sodium chloride [[place] Nasal] 0.65 % aerosol,spray 1 spray intranasal BID PRN (Reason: dry nasal passages) Qty: 30 RF: 0 fluticasone propionate 50 mcg/actuation spray,suspension 1 spray intranasal DAILY Qty: 16 RF: 0 pdtwbjjwyy-gkroabfqjvewh-isjc 50-325-40 mg tablet 1 tab PO Q6H PRN (Reason: pain) Qty: 20 RF: 0 No Action fluticasone propionate 50 mcg/actuation spray,suspension intranasal RF: 0 cetirizine 10 mg tablet 10 mg PO DAILY RF: 0 Referrals: Josh Downing, CERTIFIED REGISTERED NURSE PRACTITIONER-BC [Primary Care Provider] - 2 days Ambrocio Benito [Physician] - 1 week Stand Alone Forms: Work/School Release
[2020-12-01 08:05] VITALS: BP 129/61; PULSE 61; RESP 18; TEMP 36.8; O2SAT 99; BMI 26.9
[2020-12-01 08:19] LABS: MANUAL DIFF FLAG NO
[2020-12-01 08:20] LABS: Basophils Percent Auto 0.4 % (0-2); Eosinophils Absolute Auto 0.4 X10*3/uL (0.0-0.4); Eosinophils Percent Auto 4.7 % (0-4); Hematocrit 41.6 % (42-52); Imm Gran Abs Auto 0.02 X10*3/uL (0.00-0.03); Imm Gran Pct Auto 0.2 % (0.0-0.4); Lymphocytes Percent Auto 43.5 % (20-40); Mean Corpuscular HGB Conc 33.7 g/dl (31.0-36.0); Mean Corpuscular Hemoglobin 28.3 pg (27.0-33.0); Monocytes Absolute Auto 0.6 X10*3/uL (0.1-1.2); Monocytes Percent Auto 6.7 % (2-11); Neutrophils Absolute Auto 4.1 X10*3/uL (2.0-8.3); Neutrophils Percent Auto 44.5 % (45-73); Platelet Count 207 X10*3/uL (160-400); Red Blood Count 4.95 X10*6/uL (4.60-5.80); Red Cell Distribution Width 12.3 % (11.0-16.0); White Blood Count 9.1 X10*3/uL (4.8-10.8)
[2020-12-01 08:26] LABS: Prothrombin Time 11.6 SEC (9.9-13.0)
[2020-12-01 08:29] LABS: Partial Thromboplastin Time 36.9 SEC (24.1-38.0)
[2020-12-01 08:46] LABS: Alanine Aminotransferase 29 U/L (0-40); Albumin Level 4.5 g/dL (3.5-5.0); Alkaline Phosphatase 64 U/L (39-117); Anion Gap 10 (12-20); Aspartate Amino Transferase 23 U/L (5-37); Bilirubin Direct < 0.2 mg/dL (0.0-0.5); Bilirubin Total 0.4 mg/dL (0.0-1.0); Blood Urea Nitrogen 12 mg/dL (9-16); Calcium 9.7 mg/dL (8.4-10.2); Carbon Dioxide 26 mmol/L (22-29); Chloride 108 mmol/L (96-108); Creatinine Clr Calc Pharmacy 105.2; Estimated Glomerular Filt Rate > 60; Glucose Random 97 mg/dL (60-115); Magnesium 2.2 mg/dL (1.6-2.6); Potassium 4.1 mmol/L (3.3-5.1); Sodium 140 mmol/L (135-145); Total Protein 7.7 g/dL (6.5-8.0)
== END 2020-12-01 10:01 | disposition home or self-care (01) ==
PROVIDERS: Emergency Provider Emergency Medicine; PCP Nurse Practitioner Family
DX: R51.9 Headache, unspecified (principal); R04.2 Hemoptysis
CPT/HCPCS: 36415; 70450; 80048; 80076; 83735; 85025; 85610; 85730; 99283; 99284

== ENCOUNTER 2020-12-05 19:22 | Emergency (ER) | payer OTHER, SELFPAY ==
[2020-12-05 20:13] VITALS: BP 125/74; PULSE 67; RESP 16; TEMP 36.6; O2SAT 96; BMI 25.9
== END 2020-12-05 21:57 | disposition left against medical advice (07) ==
PROVIDERS: Emergency Provider Emergency Medicine; PCP Nurse Practitioner Family
DX: H53.8 Other visual disturbances (principal)
CPT/HCPCS: 99281; 99282

== ENCOUNTER 2020-12-07 17:41 | Outpatient (REF) | payer OTHER, SELFPAY ==
--- NOTE | ~2020-12-07 | MR_ITS ---
MRI OF THE BRAIN WITHOUT IV CONTRAST INDICATION: Headache. COMPARISON: Head CT 12/01/2020. TECHNIQUE: Multiplanar multisequence MR imaging of the brain was obtained without IV contrast. FINDINGS: There is no hydrocephalus, extra-axial surface collection, or herniation. Mild nonspecific T2 signal changes concentrated within the bifrontal white matter. The major flow voids at the skull base are preserved. There is no acute infarct on diffusion-weighted imaging. There is no intracranial hemorrhage on the gradient recalled echo acquisition. The midline structures are normal. The cerebellar tonsils are normally positioned. The cerebellum and brainstem are normal. The craniocervical junction is normal. Osseous marrow signal intensity is homogenous. The visualized soft tissues are unremarkable. Mild mucosal thickening within the ethmoid air cells and maxillary sinuses bilaterally. MR/MR head/brain wo con IMPRESSION: - No acute intracranial findings. - Mild nonspecific T2 signal changes concentrated within the bifrontal white matter.
== END 2020-12-07 17:42 | disposition home or self-care (01) ==
LOC: HO.MRI 17:41
PROVIDERS: Visit Provider Nurse Practitioner Family
DX: R51.9 Headache, unspecified (principal); H53.8 Other visual disturbances
CPT/HCPCS: 70551

== ENCOUNTER 2022-02-11 13:44 | Outpatient (REF) | payer OTHER, SELFPAY ==
--- NOTE | ~2022-02-11 | MM_ITS ---
EXAMINATION: MM DIAGNOSTIC DIGITAL BREAST TOMOSYNTHESIS, BILATERAL US DIAGNOSTIC ULTRASOUND BREAST, LEFT CLINICAL INFORMATION: 32-year-old male with chronic tender left areola. No discharge or mass. Family history breast cancer, maternal grandmother. No prior breast imaging. COMPARISON: CT chest 11/01/2020. TECHNIQUE: Digital breast tomosynthesis is performed in both the craniocaudal and mediolateral oblique views along with computer-aided detection (CAD). Synthesized 2D images are generated from the tomosynthesis. Ultrasound left breast is performed using grayscale imaging and color Doppler without and with harmonics. Exam is targeted to the areas of clinical concern as noted by patient. FINDINGS: The breasts are almost entirely fatty (ACR BI-RADS breast composition Category a). There is no mass or architectural abnormality. No skin thickening or coarsening of the stromal markings. No abnormal calcifications. The axilla are unremarkable. No gynecomastia appreciated. Ultrasound left breast demonstrates no cystic or solid mass, architectural abnormality, or focal duct ectasia. No skin thickening or edema tracking in soft tissue planes. No intradermal lesion. Results are discussed with the patient at time of visit. MM/MM tomosynthesis diagnostic BI IMPRESSION: -No mammographic evidence of malignancy or inflammatory changes.. -Unremarkable left breast ultrasound. ASSESSMENT: BI-RADS 1: Negative RECOMMENDATION: Patient should be managed based on the clinical impression.
== END 2022-02-11 13:45 | disposition home or self-care (01) ==
LOC: HO.MAMMO 13:44
PROVIDERS: PCP Nurse Practitioner Family; Visit Provider Nurse Practitioner Family
DX: N63.25 Unspecified lump in the left breast, overlapping quadrants (principal)
CPT/HCPCS: 76642; 77062; 77066

== ENCOUNTER 2022-03-27 17:05 | Outpatient (REF) | payer OTHER, SELFPAY ==
--- NOTE | ~2022-03-27 | XR_ITS ---
EXAMINATION: XR KNEE, RIGHT CLINICAL INFORMATION: Right knee sprain. COMPARISON: None TECHNIQUE: Four views of the right knee. FINDINGS: Bones and soft tissues are normal. No fracture or joint effusion. Alignment is anatomic. Joint spaces are well maintained. No abnormal soft tissue calcification. XR/XR knee RT 4V IMPRESSION: Unremarkable right knee.
== END 2022-03-27 17:06 | disposition home or self-care (01) ==
LOC: HO.HMGCX 17:05
PROVIDERS: Visit Provider Internal Medicine
DX: S83.91XA Sprain of unspecified site of right knee, initial encounter (principal)
CPT/HCPCS: 73564

== ENCOUNTER → 2022-08-19 06:54 | Outpatient (REF) | payer OTHER, SELFPAY ==
--- NOTE | 2022-08-19 06:57 | HM_ITS ---
* Total monitoring time about 3 days. * Underlying rhythm is sinus. Average ventricular rate 78/Min. Range 44 to 149/Min. About 16% of the time, rate > 100/min. * Rare PACs and PVCs with minimal burden. * No sustained arrhythmias. * No significant pauses or AV blocks. * Patient marker used 16 times in a physician in sinus rhythm, sinus bradycardia, sinus tachycardia. Several symptoms reported in diary including sharp pain, tingling in hand, dull pain, nausea, numbness, sweating, shortness of breath, jaw pain difficulty at different times. Correlates with patient markers. MTDD
== END ==
LOC: HO.CARD 06:54
PROVIDERS: PCP Nurse Practitioner Family; Visit Provider Nurse Practitioner Family
DX: R07.9 Chest pain, unspecified (principal); R00.2 Palpitations
CPT/HCPCS: 93242

== ENCOUNTER → 2022-08-23 13:32 | Outpatient (REF) | payer OTHER, SELFPAY ==
--- NOTE | 2022-08-23 13:35 | CA_ITS ---
Transthoracic Echocardiogram Patient (Last, First, Middle): Mina Vincent L Gender: Male Date of : 1990 Age: 32 Procedure Date: 08/23/2022 Procedure Type: Transthoracic Echocardiogram Location: OP Height: 154.94 cm Weight: 66.23 kg BSA: 1.65 m2 Heart Rate: 65 bpm BP: 115 / 65 mmHg Computer Applications Engineer: MANGO Referring MD: Josh Downing [facility] Symptoms: R07.9 - Chest pain, unspecified Study Quality: Adequate ECG Rhythm: Sinus Conclusions: - Normal left ventricular cavity size. There is normal left ventricular wall thickness. The left ventricular systolic function is low normal. The visually estimated ejection fraction is between 50-55%. - The basal inferior segment is hypokinetic. - The basal inferoseptal segment is akinetic. Findings Left Ventricle Normal left ventricular cavity size. There is normal left ventricular wall thickness. The left ventricular systolic function is low normal. The visually estimated ejection fraction is between 50-55%. There is evidence of regional wall motion abnormalities. Diastolic function is normal for age. Wall Motion Rest Echo Findings The basal inferior segment is hypokinetic. The basal inferoseptal segment is akinetic. Right Ventricle Normal right ventricular cavity size and systolic function. Atria The left atrium is normal in size. The right atrium is normal in size. Aortic Valve The aortic valve structure and function is likely normal. There is no aortic valve stenosis. There is no aortic valve regurgitation. Mitral Valve Normal mitral valve structure and function. There is no mitral valve regurgitation. There is no mitral valve stenosis. Pulmonic Valve The pulmonic valve is normal. Tricuspid Valve Normal tricuspid valve structure and function. There is no tricuspid valve regurgitation. Tricuspid regurgitation envelope is inadequate for calculation of right ventricular systolic pressure. Normal right atrial pressure. Great Vessels The visualized portions of the pulmonary artery and branches are normal. Venous The inferior vena cava is normal in size and collapses greater than 50% with inspiration. Pericardium/Pleural There is no evidence of pericardial effusion. Prior Study Comparison No prior study available for comparison. Measurements 2D Linear Measurements IVSd: 0.64 0.6-0.9/0.6-1.0 cm LVIDd: 5.25 3.9-5.3/4.2-5.9 cm LVIDd Index: 3.18 2.4-3.2/2.2-3.1 cm/m2 LVIDs: 3.85 2.0-3.6 cm LVPWd: 0.66 0.7-1.1 cm LA Diam: 3.00 2.7-3.8/3.0-4.0 cm LAIDs Index: 1.82 1.5-2.3 cm/m2 LV Mass: 141.36 67-162/88-224 g LV Mass Index: 85.67 43-95/49-115 g/m2 LVOT Diam: 2.00 3.0+(-)1.3 cm 2D Systolic Function EF 4C: 47.40 >55% EF 2C: 47.10 >55% EF BiP: 47.50 >55% Mitral Valve MV Pk E: 0.67 MV PK A: 0.50 MV Decel Time: 223.00 E/A: 1.40 E'Lateral: 14.80 E'Medial: 11.90 E/E' Med: 5.70 E/E' Lat: 4.50 PHT: 65.00 MVA PHT: 3.38 Decel Nolan: 3.01 Aortic Valve AoV Pk Ricardo: 1.02 AoV Mn Ricardo: 0.78 AoV VTI: 0.23 AoV Pk Grad: 4.00 Aov Mn Grad: 3.00 WILLIE Cont.VTI: 2.29 LVOT LVOT Pk Ricardo: 0.96 LVOT Mn Ricardo: 0.68 LVOT VTI: 0.17 LVOT Pk Grad: 4.00 LVOT Mn Grad: 2.00 LVOT Diam: 2.00 LVOT Area: 3.14 Diastolic Function MV Pk E: 0.67 MV Pk A: 0.50 E/A: 1.40 E'Medial: 11.90 E/E' Med: 5.70 E' Laterial: 14.80 E/E' Lat: 4.50 Right Ventricle TAPSE (mm): 22.80 TVS' Ricardo: 13.60 Tricuspid Valve RA Press: 3.00 Great Vessels Aorta Sinus of Valsalva: 3.40 2.0-3.5 cm Ao Asc: 2.80 2.1-3.4 cm Pulmonary Valve PV Pk Ricardo: 0.90 Peak PV Grad: 3.00 Updated in Other Vendor System with Status of Final Jonah Rodgers MD electronically signed on 08/26/2022 10:56:23 PM with status of Final
== END ==
LOC: HO.CARD 13:32
PROVIDERS: PCP Nurse Practitioner Family; Visit Provider Nurse Practitioner Family
DX: R07.9 Chest pain, unspecified (principal); R00.2 Palpitations
CPT/HCPCS: 93306

== ENCOUNTER 2022-08-28 21:02 | Emergency (ER) | payer OTHER, SELFPAY ==
--- NOTE | 2022-08-28 | ECG_ITS ---
Test Reason : CHEST PAIN Blood Pressure : / mmHG Vent. Rate : 077 BPM Atrial Rate : 077 BPM P-R Int : 136 ms QRS Dur : 094 ms QT Int : 358 ms P-R-T Axes : 057 046 049 degrees QTc Int : 405 ms Normal sinus rhythm Normal ECG When compared with ECG of 05-SEP-2020 09:48, No significant change was found Referred By: Generic ED Physician Electronically Signed By:LYNDSAY CRYSTAL MD
[2022-08-28 21:11] VITALS: BP 145/88; PULSE 71; RESP 18; TEMP 36.3; O2SAT 99; BMI 27.6
[2022-08-28 21:40] LABS: Basophils Absolute Auto 0.1 X10*3/uL (0.0-0.2); Basophils Percent Auto 0.6 % (0-2); Eosinophils Absolute Auto 0.3 X10*3/uL (0.0-0.4); Eosinophils Percent Auto 2.6 % (0-4); Hematocrit 43.6 % (42.0-52.0); Hemoglobin 14.8 g/dl (14.0-18.0); Imm Gran Abs Auto 0.02 X10*3/uL (0.00-0.03); Imm Gran Pct Auto 0.2 % (0.0-0.4); Lymphocytes Absolute Auto 5.8 X10*3/uL (1.2-4.9); Lymphocytes Percent Auto 53.7 % (20-40); MANUAL DIFF FLAG SCAN; Mean Corpuscular HGB Conc 33.9 g/dl (31.0-36.0); Mean Corpuscular Hemoglobin 27.5 pg (27.0-33.0); Mean Platelet Volume 11.4 fL (9.4-12.4); Monocytes Absolute Auto 0.5 X10*3/uL (0.1-1.2); Monocytes Percent Auto 4.5 % (2-11); Neutrophils Absolute Auto 4.2 x10*3/uL (2.0-8.3); Neutrophils Percent Auto 38.4 % (45-73); Platelet Count 220 X10*3/uL (160-400); Red Blood Count 5.38 X10*6/uL (4.60-5.80); Red Cell Distribution Width 12.2 % (11.0-16.0); SCAN SMEAR FLAG 1; White Blood Count 10.8 X10*3/uL (4.8-10.8)
[2022-08-28 21:54] LABS: Alanine Aminotransferase 20 U/L (0-40); Albumin Level 4.4 g/dL (3.5-5.0); Alkaline Phosphatase 61 U/L (39-117); Anion Gap 11 (12-20); Aspartate Amino Transferase 20 U/L (5-37); Bilirubin Total 0.4 mg/dL (0.0-1.0); Blood Urea Nitrogen 12 mg/dL (9-16); Calcium 9.5 mg/dL (8.4-10.2); Carbon Dioxide 26 mmol/L (22-29); Chloride 106 mmol/L (96-108); Creatinine Clr Calc Pharmacy 94.6; Estimated Glomerular Filt Rate > 60; Glucose Random 108 mg/dL (60-115); Potassium 3.7 mmol/L (3.3-5.1); Sodium 139 mmol/L (135-145); Total Protein 7.6 g/dL (6.5-8.0)
[2022-08-28 22:02] LABS: Troponin-I High Sensitivity < 2.7 ng/L (<3.5-35.0)
[2022-08-28 23:10] LABS: SLIDE REVIEW VERIFIED
[2022-08-28 23:31] VITALS: BP 119/79; PULSE 58; RESP 20; TEMP 36.6; O2SAT 99
--- NOTE | 2022-08-28 23:38 | ED_ITS ---
HPI - Chest Pain General Chief Complaint: Chest Pain Stated Complaint: severe chest pain , trouble breathing, sweats, N Time Seen by Provider: 08/28/22 23:37 Source: patient Mode of arrival: ambulatory Limitations: no limitations History of Present Illness HPI narrative: Patient with no significant past medical history been chest pain last 4 weeks off and on was seen in the [facility] ER on 08/08 with chest pain workup was negative seen at PCP office on 08/08 had Holter monitor done which were negative had echo done on 08/23 which showedNormal left ventricular cavity size.? There is normal left ? ? ventricular wall thickness.? The left ventricular systolic ? ? ? function is low normal.? The visually estimated ejection fraction is between 50-55%. ? - The basal inferior segment is hypokinetic. ? - The basal inferoseptal segment is akinetic patient comes back again with the chest pain sharp in character linger on for last 1 week now Patient relaxed at this time denies any chest pain Related Data Previous Rx's Medication Instructions Recorded amitriptyline 25 mg tablet 25 mg PO BEDTIME #30 tabs 01/30/22 ibuprofen 600 mg tablet 600 mg PO Q6H PRN fever or pain 08/28/22 #30 tabs Allergies Allergy/AdvReac Type Severity Reaction Status Date / Time sumatriptan Allergy Severe Tachycardia, Verified 08/28/22 21:10 facial numbness pollen Allergy Unknown rASH, sob Uncoded 08/13/22 10:18 tuna Allergy Unknown anaphylaxis Uncoded 08/13/22 10:18 Review of Systems Review of Systems: Yes all other systems are reviewed and are negative [facility] Past Medical History Medical History Asthma COVID No known health problems Tension headache Surgical History S/P appendectomy Family History Family History Father Hypertension Diabetes Substance use disorder Mother No problems noted. Paternal Grandfather Diabetes Paternal Grandfather Substance use disorder Maternal Aunt Substance use disorder Maternal Grandmother Substance use disorder Paternal Aunt Substance use disorder Social History Social History Household Members: Spouse and Family Housing: House Do you presently have visiting nurse or other home services: No Alcohol intake: never Patient Tobacco Use Status: Former Tobacco user Smoked in Last 30 Days: No e-Cigarette/Vaping Use: Currently Using Second Hand Smoke Exposure: No Use of substances other than those prescribed or required for medical reasons: No Advance Directives: No Advance Directives Information Provided: Yes service: No Current occupational status: employed Cognitive needs: No Hearing needs: No Vision needs: No Physical Exam Vital Signs: Vital Signs: Last Vital Signs Temp 97.8 F 08/28/22 23:31 Pulse 58 08/28/22 23:31 Resp 20 08/28/22 23:31 BP 119/79 08/28/22 23:31 Pulse Ox 99 08/28/22 23:31 O2 Del Method Room Air 08/28/22 23:31 BMI result Body Mass Index 27.6 Appearance: Alert. Oriented X3. No acute distress. Eyes: PERRLA, No Nystagmus ENT: Pharynx normal. Oral Mucosa moist Neck: Normal inspection. Neck supple. CVS: Normal heart rate and rhythm. Pulses normal. Respiratory: No respiratory distress. Equal air entry bilateral, no wheezing/r ales/rhonchi Abdomen: Soft and nontender. Bowel sounds are present, no mass palpable, no CVA tenderness Skin: Skin warm and dry. Normal skin color. Normal skin turgor. Extremities: No lower extremity edema. No calf tenderness Neuro: Oriented X 3. No motor deficit. No sensory deficit.No cerebellar signs , cranial nerves II-XII intact Medical Decision Making Medical Decision Making [facility] Narrative: Patient atypical chest pain for more than 3 weeks had Holter monitoring which was negative echo without any significant valve abnormalities. High sensitive troponin negative for acute ischemia EKG without any ischemic changes will discharge patient home advised to follow with PCP likely patient has atypical chest pain Lab Data [facility] Lab Attestation statement: I reviewed the patient's lab results. 08/28/22 21:32 08/28/22 21:32 Labs: Lab Results 08/28/22 08/28/22 08/28/22 Range/Units 21:32 21:32 21:32 WBC 10.8 (4.8-10.8) X10*3/uL RBC 5.38 (4.60-5.80) X10*6/uL Hgb 14.8 (14.0-18.0) g/dl Hct 43.6 (42.0-52.0) % MCV 81.0 (80.0-98.0) fL MCH 27.5 (27.0-33.0) pg MCHC 33.9 (31.0-36.0) g/dl RDW 12.2 (11.0-16.0) % Plt Count 220 (160-400) X10*3/uL MPV 11.4 (9.4-12.4) fL Immature Gran % (Auto) 0.2 (0.0-0.4) % Neut % (Auto) 38.4 L (45-73) % Lymph % (Auto) 53.7 H (20-40) % Starr % (Auto) 4.5 (2-11) % Eos % (Auto) 2.6 (0-4) % Baso % (Auto) 0.6 (0-2) % Lymph # (Auto) 5.8 H (1.2-4.9) X10*3/uL Starr # (Auto) 0.5 (0.1-1.2) X10*3/uL Eos # (Auto) 0.3 (0.0-0.4) X10*3/uL Baso # (Auto) 0.1 (0.0-0.2) X10*3/uL Abs Immat Gran (auto) 0.02 (0.00-0.03) X10*3/uL Absolute Neuts (auto) 4.2 (2.0-8.3) x10*3/uL Absolute Nucleated RBC 0.000 (0.0-0.012) X10*3/uL Nucleated RBC % (auto) 0.0 (0.0-0.2) /100WBC Smear Tech's Comments VERIFIED Sodium 139 (135-145) mmol/L Potassium 3.7 (3.3-5.1) mmol/L Chloride 106 (96-108) mmol/L Carbon Dioxide 26 (22-29) mmol/L Anion Gap 11 L (12-20) BUN 12 (9-16) mg/dL Creatinine 0.90 (0.5-1.4) mg/dL Estim Creat Clear Calc 94.6 Estimated GFR > 60 Random Glucose 108 (60-115) mg/dL Calcium 9.5 (8.4-10.2) mg/dL Total Bilirubin 0.4 (0.0-1.0) mg/dL AST 20 (5-37) U/L ALT 20 (0-40) U/L Alkaline Phosphatase 61 (39-117) U/L Troponin I High Sens < 2.7 (<3.5-35.0) ng/L Total Protein 7.6 (6.5-8.0) g/dL Albumin 4.4 (3.5-5.0) g/dL Independent Interpretation I performed an independent interpretation of an: EKG Interpretation: Normal sinus rhythm heart rate 77 beats per minute normal interval normal axis impression normal EKG Discharge Plan Discharge Clinical Impression: Chest pain, non-cardiac Patient Disposition: Home, Self-Care Instructions: Noncardiac Chest Pain (ED) Additional Instructions: Your chest pain is likely noncardiac take pain medication ibuprofen every 6 hours as needed Follow with PCP if any concerns Prescriptions: New ibuprofen 600 mg tablet 600 mg PO Q6H PRN (Reason: fever or pain) Qty: 30 0RF No Action amitriptyline 25 mg tablet 25 mg PO BEDTIME Qty: 30 1RF Interventions: ED Discharge Assessment Last Done: 08/29/22 00:01 Discharge Date/Time: 08/29/22 00:03
== END 2022-08-29 00:03 | disposition home or self-care (01) ==
PROVIDERS: Emergency Provider Internal Medicine; PCP Nurse Practitioner Family
DX: R07.9 Chest pain, unspecified (principal); R06.00 Dyspnea, unspecified
CPT/HCPCS: 36415; 80053; 84484; 85025; 93005; 99283; 99284

== ENCOUNTER → 2022-09-04 14:34 | Outpatient (BNVA) | payer OTHER, SELFPAY | PROVIDERS: PCP Nurse Practitioner Family; Visit Provider Internal Medicine | DX: Z13.89 Encounter for screening for other disorder (principal) ==

== ENCOUNTER 2022-11-22 09:58 | Outpatient (REF) | payer OTHER, SELFPAY | END 2022-11-22 09:59 | disposition home or self-care (01) | LOC: HO.HMGCX 09:58 | PROVIDERS: PCP Nurse Practitioner Family; Visit Provider Internal Medicine | DX: R13.10 Dysphagia, unspecified (principal) | CPT/HCPCS: 71046 ==

== ENCOUNTER 2022-11-25 08:13 | Outpatient (AMB) | payer OTHER, SELFPAY ==
[2022-11-25 08:28] VITALS: BP 128/70; PULSE 73; O2SAT 98; BMI 27.3
--- NOTE | 2022-11-25 08:28 | MHC.PC.OV ---
Vital Signs 11/25/22 08:28 Height 5 ft 1 in Weight 144 lb 4 oz BMI 27.3 BP 128/70 Blood Pressure Location Rt brachial Position Sitting Pulse 73 Pulse Source Pulse Oximeter Pulse Oximetry (%) 98 Oxygen Delivery Method Room Air Intake Visit Reasons: 6 Month follow up Allergies sumatriptan Allergy (Severe, Verified 11/25/22 08:31) Tachycardia, facial numbness pollen Allergy (Unknown, Uncoded 11/25/22 08:31) rASH, sob tuna Allergy (Unknown, Uncoded 11/25/22 08:31) anaphylaxis Medication List - Last Reconciled 11/25/22 by DENIS Flores ketoconazole 2% 1 appl topical DAILY omeprazole 20 mg PO DAILY Tobacco use date assessed: 11/25/22 Dental Screening Dental Screen Date: 11/25/22 Did you have a dental visit in the last 12 months?: No Did you have a dental problem in the last 6 months where you did not have access to dental care?: No Was dental information given to patient?: Patient has dentist HPI 6 Month follow up HPI Details Pt is following up with cardiology due to intermittent episodes of chest tightness and nausea. He was previously seen in the ER and workup was negative. Pt has a CTA planned and is following up with cardiology tomorrow. Denies any current chest pain, shortness of breath, and dizziness. Pt reports increased depression with insomnia. Will send trazodone. Denies any SI and HI. Further reports intermittent dysphagia. GI series/BS ordered already. Insomnia: sending trazodone [facility] Medical History Asthma COVID No known health problems Tension headache Surgical History S/P appendectomy Family History Father Hypertension Diabetes Substance use disorder Mother No problems noted. Paternal Grandfather Diabetes Paternal Grandfather Substance use disorder Maternal Aunt Substance use disorder Maternal Grandmother Substance use disorder Paternal Aunt Substance use disorder Social History Household Members: Spouse and Family Housing: House Do you presently have visiting nurse or other home services: No Alcohol intake: never Patient Tobacco Use Status: Former Tobacco user e-Cigarette/Vaping Use: Currently Using Second Hand Smoke Exposure: No service: No Current occupational status: employed Cognitive needs: No Hearing needs: No Vision needs: No Questionnaire Thrive Questionnaire Date Thrive assessed: 05/28/22 INES-7 AMB Questionnaire INES-7 Date INES - 7 assessed: 05/28/22 Source: Developed by Drs. García Spaulding, Jacqueline Sheth, Willie Lambert and colleagues, with an educational odlais from [employer]. Review of Systems Const Reports as per HPI Physical exam (Primary Care) Vital Signs: Last Vital Signs Pulse 73 11/25/22 08:28 BP 128/70 11/25/22 08:28 Pulse Ox 98 11/25/22 08:28 Oxygen Delivery Method Room Air 11/25/22 08:28 BMI result Body Mass Index 27.3 Tobacco/Smoking Status: Tobacco use Status Tobacco use date assessed 11/25/22 11/25/22 08:33 Patient Tobacco Use Status Former Tobacco user 11/25/22 08:31 e-Cigarette/Vaping Use Currently Using 11/25/22 08:31 Thrive Assessment: Date of Thrive Assessment Date Thrive assessed 05/28/22 11/25/22 08:31 Const General: cooperative and comfortable Orientation/consciousness: patient oriented x3 Resp Effort & Inspection: normal respiratory effort Auscultation: clear to auscultation bilaterally Cardio Rate: regular rate Rhythm: regular rhythm Heart sounds: S1 normal heart sound present and S2 normal heart sound present Neuro General: patient oriented x3 Psych Appearance: grossly normal Mental Status: mental status grossly normal Speech and movement: Normal speech and movement present Affect: normal affect Attitude: cooperative Thought process: Normal thought process present Thought content: Normal thought content present Insight: Good insight present (Psych) Judgement: Good judgement present (Psych) Assessment and Plan Assessment & Plan (1) Abnormal echocardiogram: Code(s): R93.1 - Abnormal findings on diagnostic imaging of heart and coronary circulation Plan: Following up with cardiology (2) Dysphagia: Code(s): R13.10 - Dysphagia, unspecified Plan: Upper GI series has been ordered (3) Chest pain: Code(s): R07.9 - Chest pain, unspecified Plan: Continue to follow up with cardiology (4) Heart palpitations: Code(s): R00.2 - Palpitations Plan: Continue to follow up with cardiology (5) Insomnia: Code(s): G47.00 - Insomnia, unspecified Plan The patient agreed to the use of a medical operations supervisor for this encounter. Scribed for DENIS Scales by Tania Salomon medical operations supervisor, on 11/25/2022 at 08:50 EST. Medications: New ketoconazole 2% 1 appl topical DAILY 30 grams 0RF trazodone 50 mg PO BEDTIME 30 days PRN 30 tabs 3RF sleep Coding Level of Care Code Est Pt Level 3 (55674) Diagnoses Abnormal echocardiogram R93.1 Dysphagia R13.10 Chest pain R07.9 Heart palpitations R00.2 Insomnia G47.00
== END 2022-11-25 10:24 | disposition home or self-care (01) ==
PROVIDERS: Visit Provider Nurse Practitioner Family
DX: R93.1 Abnormal findings on diagnostic imaging of heart and coronary circulation (principal); R13.10 Dysphagia, unspecified; R07.9 Chest pain, unspecified; R00.2 Palpitations; G47.00 Insomnia, unspecified
CPT/HCPCS: 99213

== ENCOUNTER 2022-11-26 08:30 | Outpatient (AMB) | payer OTHER, SELFPAY ==
--- NOTE | 2022-11-26 08:41 | A.OFFVIS_ITS ---
Intake Vital Signs 11/26/22 08:42 Height 5 ft 1 in Weight 148 lb 9.465 oz BMI 28.1 BP 112/70 Blood Pressure Location Lt brachial Position Sitting Pulse 73 Intake Visit Reasons: follow up CTA Intake Note: follow up CTA Taxi Proprietor Required: No Accompanied by: Self / Same As Patient Allergies sumatriptan Allergy (Severe, Verified 11/26/22 08:44) Tachycardia, facial numbness pollen Allergy (Unknown, Uncoded 11/26/22 08:44) rASH, sob tuna Allergy (Unknown, Uncoded 11/26/22 08:44) anaphylaxis Medication List - Last Reconciled 11/26/22 by Eduardo Grimaldo MD ketoconazole 2% 1 appl topical DAILY omeprazole 20 mg PO DAILY trazodone 50 mg PO BEDTIME PRN 30 days HPI HPI Comments History of Present Illness Details Mina returns for follow-up. Recently seen in consultation regarding chest pain. Random chest pains with and without exertion. Other symptoms like dizziness/room spinning extra. Extremely active at baseline without limitations. Works out as well. No known cardiac issues in the past. Lot of stress in the family as apparently brother has been diagnosed with cancer. Underwent echocardiogram and coronary CT. [facility] Medical History Asthma COVID No known health problems Tension headache Surgical History S/P appendectomy Family History Father Hypertension Diabetes Substance use disorder Mother No problems noted. Paternal Grandfather Diabetes Paternal Grandfather Substance use disorder Maternal Aunt Substance use disorder Maternal Grandmother Substance use disorder Paternal Aunt Substance use disorder Social History Household Members: Spouse and Family Housing: House Do you presently have visiting nurse or other home services: No Alcohol intake: never Patient Tobacco Use Status: Former Tobacco user e-Cigarette/Vaping Use: Currently Using Second Hand Smoke Exposure: No service: No Current occupational status: employed Cognitive needs: No Hearing needs: No Vision needs: No Review of Systems Const Denies weakness ENT Denies dizziness Card Denies chest pain, Denies chest pain with activity, Denies syncope, Denies rapid heart rate, Denies pedal edema, Denies edema, Denies leg edema, Denies lightheadedness, Denies palpitations, Denies dyspnea, Denies dyspnea on exertion and Denies orthopnea Resp Denies cough, Denies dyspnea and Denies dyspnea on exertion GI Denies hematochezia and Denies change in stool character Musc Denies abnormal gait, Denies muscle cramps, Denies muscle weakness, Denies numbness, Denies radiating pain into limb and Denies tingling Neuro Denies abnormal gait, Denies dizziness, Denies syncope, Denies numbness, Denies tingling and Denies weakness Endo Denies palpitations Physical Exam Vital Signs: Last Vital Signs Pulse 73 11/26/22 08:42 BP 112/70 11/26/22 08:42 BMI result Body Mass Index 28.1 Const General: comfortable and no acute distress Orientation/consciousness: patient oriented x3 HEENT Other: Unremarkable Head: Yes normal to inspection Neck Neck: Yes normal visual inspection Chest Chest palpation & inspection: normal inspection of the chest Resp Auscultation: clear to auscultation bilaterally Cardio Palpation: normal PMI Heart sounds: S1 normal heart sound present, S2 normal heart sound present, no gallops, no murmurs and no rubs GI Palpation (GI): Soft to palpation Back/Spine/Pelvis Other: unremarkable Skin General skin exam: no rashes or lesions noted Neuro General: patient oriented x3 Extrem General: Yes normal to inspection Psych Mental Status: mental status grossly normal Assessment & Plan Assessment & Plan (1) Chest pain: Code(s): R07.9 - Chest pain, unspecified Plan Per [facility] ER records, unremarkable EKG and high sensitivity troponins. Another set of high sensitive troponins at [place] also unremarkable. Recent EKG here shows sinus rhythm at 77/Min; no significant ST-T changes; normal NC and corrected QT. In the echocardiogram, described to have low normal LVEF and wall motion abnormalities but to me, wall motion looks okay. In the coronary CTA, no evidence of any hemodynamically significant CAD. No coronary artery calcifications either. Overall, atypical symptoms of any clear objective data to support cardiac etiolo gy. We discussed the findings. Mainly reassurance. He will contact us with any ongoing concerns. Coding Level of Care Code Est Pt Level 3 (29919) Diagnoses Chest pain R07.9
[2022-11-26 08:42] VITALS: BP 112/70; PULSE 73; BMI 28.1
== END 2022-11-26 09:07 | disposition home or self-care (01) ==
PROVIDERS: Visit Provider Internal Medicine
DX: R07.9 Chest pain, unspecified (principal)
CPT/HCPCS: 99213

== ENCOUNTER 2022-12-19 08:27 | Outpatient (AMB) | payer OTHER, SELFPAY ==
--- NOTE | 2022-12-19 08:49 | AM.OFFWIN_ITS ---
Intake Vital Signs 12/19/22 08:51 BP 112/68 Blood Pressure Location Lt brachial Position Sitting Respiration 20 Pulse 73 Pulse Source Pulse Oximeter Temp 97.8 F Temp Source Oral Pulse Oximetry (%) 98 Oxygen Delivery Method Room Air Intake Visit Reasons: EP [place] [facility] (LT) [phone] Patient Tobacco Use Status: Former Tobacco user Suit Attendant Required: No Allergies sumatriptan Allergy (Severe, Verified 12/19/22 08:50) Tachycardia, facial numbness pollen Allergy (Unknown, Uncoded 12/19/22 08:50) rASH, sob tuna Allergy (Unknown, Uncoded 12/19/22 08:50) anaphylaxis Medication List - Last Reconciled 12/19/22 by Janette Diaz RN ketoconazole 2% 1 appl topical DAILY omeprazole 20 mg PO DAILY trazodone 50 mg PO BEDTIME PRN 30 days Do you need a note to return to daycare/school/sports/work: Yes Return to daycare/school/sports/work/other note: work HPI HPI Comments History of Present Illness Details 32-year-old male that presents for concern of pinkeye. Patient states that the of the right eye yesterday and I with allergies with oncoming home started having discharge. He denies any vision changes fevers or chills. He does endorse mild headache and some right lateral neck pain. Has a history of migraines which he is followed with Neurology and he has tried Tylenol Motrin without relief .Denies any numbness tingling with weakness of his extremities or speech difficulties denies any history of cancer IVDU chronic steroid use or immunosuppression. [facility] Medical History Asthma COVID No known health problems Tension headache Surgical History S/P appendectomy Family History Father Hypertension Diabetes Substance use disorder Mother No problems noted. Paternal Grandfather Diabetes Paternal Grandfather Substance use disorder Maternal Aunt Substance use disorder Maternal Grandmother Substance use disorder Paternal Aunt Substance use disorder Social History Household Members: Spouse and Family Housing: House Do you presently have visiting nurse or other home services: No Alcohol intake: never Patient Tobacco Use Status: Former Tobacco user e-Cigarette/Vaping Use: Currently Using Second Hand Smoke Exposure: No service: No Current occupational status: employed Cognitive needs: No Hearing needs: No Vision needs: No Review of Systems Const All systems reviewed & are unremarkable except as noted in HPI and below Denies fever(s), Reports headache(s) and Denies weakness Eyes Reports eye discharge and Reports irritation ENT Reports no additional complaints, Reports headache(s) and Reports neck pain Card Reports no additional complaints, Denies chest pain, Denies leg edema and Denies dyspnea Resp Denies cough and Denies dyspnea GI Denies abdominal pain, Denies nausea and Denies vomiting Denies dysuria and Denies urinary frequency Musc Reports neck pain Neuro Reports headache(s) and Denies weakness Psych Reports no additional complaints Endo Reports no additional complaints Physical Exam Vital Signs: Last Vital Signs Temp 97.8 F 12/19/22 08:51 Pulse 73 12/19/22 08:51 Resp 20 12/19/22 08:51 BP 112/68 12/19/22 08:51 Pulse Ox 98 12/19/22 08:51 Oxygen Delivery Method Room Air 12/19/22 08:51 Const General: cooperative, no acute distress and alert Orientation/consciousness: patient oriented x3 Limitations: no limitations HEENT Head: Yes normal to inspection Ears: hearing grossly normal bilaterally and external ears normal General nose exam: Normal external nose present Eyes Other: Conjunctival injection the left eye. Neck Neck: Yes normal visual inspection Chest Chest palpation & inspection: normal inspection of the chest Resp Effort & Inspection: normal respiratory effort, able to speak in complete sentences and no audible wheezes Auscultation: clear to auscultation bilaterally Cardio Rate: regular rate Rhythm: regular rhythm GI Inspection: Yes normal to inspection Palpation (GI): Soft to palpation and nontender Skin General skin exam: no rashes or lesions noted Neuro Other: NEURO PHYSCIAL EXAM Alert and oriented to person, place, time speech: clear, fluent CN II: visual acuity grossly intact b/l, PERRLA CN III, IV, : EOMI CN V: facial sensation grossly intact to light touch b/l CN VII: symmetric facial movement b/l, no facial droop CN VIII: hearing intact to finger rub b/l, no nystagmus CN IX, X: uvula midline CN XI: 5/5 strength with SCM and trapezius b/l CN XII: midline tongue protrusion, no atrophy or fasciculations motor: 5/5 muscle strength of UE/LE b/l, no pronator drift sensory: grossly intact b/l to light touch coordination: No dysmetria or dysdiadochokinesia with rapid alternating movement and finger to nose testing General: patient oriented x3 Psych Appearance: grossly normal Mental Status: mental status grossly normal Speech and movement: Normal speech and movement present Affect: normal affect Attitude: cooperative Thought process: Normal thought process present Thought content: Normal thought content present Assessment & Plan Assessment & Plan (1) Conjunctivitis: Code(s): H10.9 - Unspecified conjunctivitis Plan VSS. On exam patient presents alert and oriented no acute distress left eye with redness and irritation. Patient likely suffering from conjunctivitis. With regards patient's headaches and neck pain no risk factors the midline chin is to palpation neuro exam grossly intact patient likely suffering from migraine possible tension component chest the patient importance of reaching out to his neurologist. Discharge instructions, follow up and treatment are discussed with patient in my usual fashion. Alternatives in treatment are also discussed. The patient will return for worsening symptoms or as needed. Advised that any labs/imaging ordered will be followed up on and contact made if further treatment needed. Counseled that patient's condition may require further evaluation and/or treatment. Symptoms of concern for worsening disorder discussed in detail in my customary manner. Patient does verbalize understanding of the plan, there are no apparent barriers to communication. The patient is given the opportunity to ask questions and have them answered to his/her satisfaction Medications: New erythromycin 0.5 inches ophthalmic (eye) BID 5 days 3.5 grams 0RF Coding Level of Care Code Est Pt Level 3 (51615) Diagnoses Conjunctivitis H10.9
[2022-12-19 08:51] VITALS: BP 112/68; PULSE 73; RESP 20; TEMP 36.6; O2SAT 98
== END 2022-12-19 09:19 | disposition home or self-care (01) ==
PROVIDERS: PCP Nurse Practitioner Family; Visit Provider Physician Assistant
DX: H10.9 Unspecified conjunctivitis (principal)
CPT/HCPCS: 99213

== ENCOUNTER 2022-12-23 11:23 | Outpatient (AMB) | payer OTHER, SELFPAY ==
[2022-12-23 11:41] VITALS: BP 120/72; PULSE 63; TEMP 36; O2SAT 98
--- NOTE | 2022-12-23 11:41 | MHC.OFFWIV ---
Intake Vital Signs 12/23/22 11:41 Height 5 ft 1 in BP 120/72 Blood Pressure Location Lt brachial Position Sitting Pulse 63 Pulse Source Pulse Oximeter Temp 96.8 F Temp Source Temporal Artery Scan Pulse Oximetry (%) 98 Oxygen Delivery Method Room Air Intake Visit Reasons: EST/left eye irritation Intake Note: Pt is here c/o left eye irritation. Pt says he was seen last week for the same issue and nothing has changed. Patient Tobacco Use Status: Former Tobacco user Allergies sumatriptan Allergy (Severe, Verified 12/23/22 11:59) Tachycardia, facial numbness pollen Allergy (Unknown, Uncoded 12/23/22 11:59) rASH, sob tuna Allergy (Unknown, Uncoded 12/23/22 11:59) anaphylaxis Do you need a note to return to daycare/school/sports/work: No HPI EST/left eye irritation HPI Details Patient reports persisting left eye irritation. He was seen here on 12/19/2022 and was treated with erythromycin ointment for possible conjunctivitis. Patient denies redness, discharge, eye pain. He has not had any headaches recently and denies head or facial trauma. Notes he feels he sees flashes at times and orbs floating in his line of vision of the left eye only. COUNTS INCLUDE 234 BEDS AT THE [facility] Medical History Asthma COVID No known health problems Tension headache Surgical History S/P appendectomy Family History Father Hypertension Diabetes Substance use disorder Mother No problems noted. Paternal Grandfather Diabetes Paternal Grandfather Substance use disorder Maternal Aunt Substance use disorder Maternal Grandmother Substance use disorder Paternal Aunt Substance use disorder Social History Household Members: Spouse and Family Housing: House Do you presently have visiting nurse or other home services: No Alcohol intake: never Patient Tobacco Use Status: Former Tobacco user e-Cigarette/Vaping Use: Currently Using Second Hand Smoke Exposure: No service: No Current occupational status: employed Cognitive needs: No Hearing needs: No Vision needs: No Physical Exam Vital Signs: Last Vital Signs Temp 96.8 F 12/23/22 11:41 Pulse 63 12/23/22 11:41 BP 120/72 12/23/22 11:41 Pulse Ox 98 12/23/22 11:41 Oxygen Delivery Method Room Air 12/23/22 11:41 Const General: cooperative, comfortable and no acute distress Orientation/consciousness: patient oriented x3 Eyes General: appearance normal, both eyes and all related structures Visual Ramirez: normal visual ramirez by confrontation Alignment and Position: alignment normal Periorbital: periorbital findings normal Eyelids: Yes eyelids normal Conjunctivae: conjunctivae normal Sclerae: sclerae normal Corneas: corneas normal Pupils: Equal, round and reactive pupils present and Pupil accommodation reflex normal EOM: EOMs intact bilaterally Direct Ophthalmoscopy: normal light reflex Neuro General: patient oriented x3 Cranial nerves: Yes Equal, round and reactive pupils present Assessment & Plan Assessment & Plan (1) Vision changes: Code(s): H53.9 - Unspecified visual disturbance Plan: Refer to ophthalmology, he should also mention symptoms to neurologist at the follows with them for headache. ER if symptoms become acute or worsen where he has visual loss, grayed out part of his visual field for severe eye pain. Orders: Referrals Ophthalmology Referral H53.9 - Unspecified visual disturbance Coding Level of Care Code Est Pt Level 3 (89362) Diagnoses Vision changes H53.9
== END 2022-12-23 12:35 | disposition home or self-care (01) ==
PROVIDERS: PCP Nurse Practitioner Family; Visit Provider Physician Assistant
DX: H53.9 Unspecified visual disturbance (principal)
CPT/HCPCS: 99213

== ENCOUNTER 2023-03-04 08:22 | Outpatient (AMB) | payer OTHER, SELFPAY ==
--- NOTE | 2023-03-04 08:36 | MHC.OFFWIV ---
Intake Vital Signs 03/04/23 08:43 Weight 146 lb BP 112/70 Blood Pressure Location Rt brachial Position Sitting Pulse 96 Pulse Source Pulse Oximeter Temp 98.8 F Temp Source Oral Pulse Oximetry (%) 97 Oxygen Delivery Method Room Air Intake Visit Reasons: EP, body ache, chest congestion [phone] Intake Note: patient here for sob, chest congestion, body aches that started friday Patient Tobacco Use Status: Former Tobacco user Allergies sumatriptan Allergy (Severe, Verified 03/04/23 08:37) Tachycardia, facial numbness pollen Allergy (Unknown, Uncoded 03/04/23 08:37) rASH, sob tuna Allergy (Unknown, Uncoded 03/04/23 08:37) anaphylaxis Do you need a note to return to daycare/school/sports/work: Yes HPI HPI Comments History of Present Illness Details This is a 33-year-old male with a past medical history of seasonal allergies not currently treated presenting for evaluation of sneezing, cough and shortness of breath that started after going on a hay ride on Friday. Patient reports having chills on Friday but not thereafter. Patient has been using TheraFlu and Tylenol with minimal relief of his symptoms. He denies having any sick contacts. Additionally, patient denies having any ear pain, sore throat, difficulty swallowing or chest pain. Patient took a COVID test yesterday which was negative. [facility] Medical History COVID Tension headache Asthma No known health problems Surgical History S/P appendectomy Family History Father Hypertension Diabetes Substance use disorder Mother No problems noted. Paternal Grandfather Diabetes Paternal Grandfather Substance use disorder Maternal Aunt Substance use disorder Maternal Grandmother Substance use disorder Paternal Aunt Substance use disorder Social History Household Members: Spouse and Family Housing: House Do you presently have visiting nurse or other home services: No Alcohol intake: never Patient Tobacco Use Status: Former Tobacco user e-Cigarette/Vaping Use: Currently Using Second Hand Smoke Exposure: No service: No Current occupational status: employed Cognitive needs: No Hearing needs: No Vision needs: No Review of Systems Const Reports chills, Denies fatigue, Denies fever(s) and Denies headache(s) Eyes Reports no additional complaints ENT Reports no additional complaints, Denies otalgia, Denies headache(s), Denies hearing loss, Reports nasal congestion, Denies sinus pain and Denies sore throat Card Reports as per HPI and Reports dyspnea Resp Reports cough and Reports dyspnea Neuro Denies headache(s) Endo Denies fatigue Arnol/Lymph Denies lymphadenopathy Physical Exam Vital Signs: Last Vital Signs Temp 98.8 F 03/04/23 08:43 Pulse 96 03/04/23 08:43 BP 112/70 03/04/23 08:43 Pulse Ox 97 03/04/23 08:43 Oxygen Delivery Method Room Air 03/04/23 08:43 Const Other: Patient is afebrile without hypoxia. General: cooperative, healthy appearing, comfortable and no acute distress; No ill appearing Nutritional Appearance: average body habitus Orientation/consciousness: patient oriented x3 Limitations: no limitations HEENT Head: Yes normal to inspection Ears: hearing grossly normal bilaterally, TM normal on the right and TM abnormal (left TM bulging with erythema) erythematous; with no fluid behind the TM General nose exam: Normal external nose present Face and sinus: Yes normal facial exam and Yes sinuses nontender Mouth: Normal oral and palatal mucosa present, oropharynx normal, moist mucous membranes and breath no malodorous Teeth and gingiva: dentition normal Throat: Yes posterior oropharynx normal and Yes uvula midline Eyes Conjunctivae: conjunctivae normal Sclerae: sclerae normal Neck Lymphatic: no lymphadenopathy noted Resp Effort & Inspection: normal respiratory effort, able to speak in complete sentences, no audible wheezes and no stridor Auscultation: clear to auscultation bilaterally Cardio Rate: regular rate Rhythm: regular rhythm Neuro General: patient oriented x3 Psych Appearance: grossly normal Mental Status: mental status grossly normal Insight: Good insight present (Psych) Judgement: Good judgement present (Psych) Assessment & Plan Assessment & Plan (1) Otitis media, left: Code(s): H66.92 - Otitis media, unspecified, left ear Plan: Amoxicillin BID x 7 days; Tylenol or ibuprofen as needed for discomfort. Medications: New amoxicillin 500 mg PO BID 14 caps 0RF Coding Level of Care Code New Pt Level 3 (00252) Diagnoses Otitis media, left H66.92 Time Spent (min) 20
[2023-03-04 08:43] VITALS: BP 112/70; PULSE 96; TEMP 37.1; O2SAT 97
== END 2023-03-04 09:11 | disposition home or self-care (01) ==
PROVIDERS: PCP Nurse Practitioner Family; Visit Provider Physician Assistant
DX: H66.92 Otitis media, unspecified, left ear (principal)
CPT/HCPCS: 99203

== ENCOUNTER 2023-04-14 07:42 | Outpatient (AMB) | payer OTHER, SELFPAY ==
--- NOTE | 2023-04-14 07:45 | A.OFFPC_ITS ---
Vital Signs 04/14/23 07:47 Height 5 ft 1 in Weight 146 lb BMI 27.6 BP 120/90 H Blood Pressure Location Lt brachial Position Sitting Pulse 78 Pulse Source Pulse Oximeter Pulse Oximetry (%) 98 Oxygen Delivery Method Room Air Intake Visit Reasons: Anxiety Allergies sumatriptan Allergy (Severe, Verified 04/14/23 07:47) Tachycardia, facial numbness pollen Allergy (Unknown, Uncoded 04/14/23 07:47) rASH, sob tuna Allergy (Unknown, Uncoded 04/14/23 07:47) anaphylaxis Tobacco use date assessed: 11/25/22 HPI Anxiety HPI Details Anxiety: Pt reports that his brother at the beginning of March. He states that this has been causing increased anxiety. Pt stopped taking his sertraline because it made him feel funny. Will have pt restart half a tab and then increase. Pt is going to be following up with a psychiat rist. Denies any SI and HI. Pt's brother from a cardiac event, I think his heart was enlarged. Pt was seen by cardiology and had an echo, EKG, holter, and CTA. I told pt he could follow up with cardio if he feels necessary again, but so-far his symptoms do not correlate to a cardio related issue. Will cont to monitor anxiety, seeing pt again in a month and a half. He denies any SOB, dizziness, GREEN, does report intermittent chest discomfort, but relates this to his anxiety, will again, cont to monitor PFSH Medical History COVID Tension headache Asthma No known health problems Surgical History S/P appendectomy Family History Father Hypertension Diabetes Substance use disorder Mother No problems noted. Paternal Grandfather Diabetes Paternal Grandfather Substance use disorder Maternal Aunt Substance use disorder Maternal Grandmother Substance use disorder Paternal Aunt Substance use disorder Household Members: Spouse and Family Housing: House Do you presently have visiting nurse or other home services: No Alcohol intake: never Patient Tobacco Use Status: Former Tobacco user e-Cigarette/Vaping Use: Currently Using Second Hand Smoke Exposure: No service: No Current occupational status: employed Cognitive needs: No Hearing needs: No Vision needs: No Questionnaire Thrive Questionnaire Date Thrive assessed: 05/28/22 INES-7 AMB Questionnaire INES-7 Date INES - 7 assessed: 05/28/22 Feeling nervous, anxious, or on edge: 2 = More than half the days Not being able to stop or control worryin = More than half the days Worrying too much about different things: 2 = More than half the days Trouble relaxin = More than half the days Being so restless that it is hard to sit still: 1 = Several days Becoming easily annoyed or irritable: 1 = Several days Feeling afraid as if something awful might happen: 2 = More than half the days Total INES-7 score (0-4 normal; 5-9 mild; 10-14 moderate; 15-21 severe): 12 Source: Developed by Drs. García Spaulding, Jacqueline Shteh, Willie Lambert and colleagues, with an educational odalis from [employer]. INES-7 Assessment Billing INES-7 Assessment Tool: INES-7 Assessment 10141 Review of Systems Const Reports as per HPI Physical exam (Primary Care) Vital Signs: Last Vital Signs Pulse 78 04/14/23 07:47 BP 120/90 H 04/14/23 07:47 Pulse Ox 98 04/14/23 07:47 Oxygen Delivery Method Room Air 04/14/23 07:47 BMI result Body Mass Index 27.6 Tobacco/Smoking Status: Tobacco use Status Tobacco use date assessed 11/25/22 04/14/23 07:46 Patient Tobacco Use Status Former Tobacco user 04/14/23 07:46 e-Cigarette/Vaping Use Currently Using 04/14/23 07:46 Thrive Assessment: Date of Thrive Assessment Date Thrive assessed 05/28/22 04/14/23 07:46 Const General: cooperative Orientation/consciousness: patient oriented x3 Resp Effort & Inspection: normal respiratory effort Auscultation: clear to auscultation bilaterally Cardio Rate: regular rate Rhythm: regular rhythm Heart sounds: S1 normal heart sound present and S2 normal heart sound present Neuro General: patient oriented x3 Psych Appearance: grossly normal Mental Status: mental status grossly normal Speech and movement: Normal speech and movement present Affect: normal affect Attitude: cooperative Thought process: Normal thought process present Thought content: Normal thought content present Insight: Good insight present (Psych) Judgement: Good judgement present (Psych) Assessment and Plan Assessment & Plan (1) Anxiety: Code(s): F41.9 - Anxiety disorder, unspecified Plan: sertraline, starting 1/2 tab at night, following up with psychiatry (2) Grief: Code(s): F43.21 - Adjustment disorder with depressed mood Plan: will cont to monitor, pt has a psychiatrist, denies any SI or HI Plan The patient agreed to the use of a medical assembler for this encounter. Scribed for DENIS Scales by Tania Salomon medical assembler, on 04/14/2023 at 08:10 EST. Coding Level of Care Code Est Pt Level 3 (32936) Diagnoses Anxiety F41.9 Grief F43.21 Additional Codes INES-7 Assessment Billing - INES-7 Assessment Tool: INES-7 Assessment 10910 ([id number])
[2023-04-14 07:47] VITALS: BP 120/90; PULSE 78; O2SAT 98; BMI 27.6
== END 2023-04-14 09:04 | disposition home or self-care (01) ==
PROVIDERS: PCP Nurse Practitioner Family; Visit Provider Nurse Practitioner Family
DX: F41.9 Anxiety disorder, unspecified (principal); F43.21 Adjustment disorder with depressed mood
CPT/HCPCS: 96127; 99213

== ENCOUNTER 2023-06-11 09:26 | Outpatient (AMB) | payer OTHER, SELFPAY ==
--- OUTSIDE RECORDS SUMMARY | 2023-06-11 09:28 | XMS_ITS | Continuity of Care Document ---
Author Name Unknown Organization [facility] ter Address [address] [place] [id number]- Care Team Providers Care Recycling Program Manager Name Role Phone Chang GARCIA, Josh Rose Primary Care Physician Encounter [facility] Date(s): 03/28/23 - 03/28/[address] [address]- Encounter Diagnosis Anxiety(Final) - 03/28/23 Discharge Disposition: A-D/C Home Attending Physician: Emerita Jean Baptiste MD Admitting Physician: Emerita Jean Baptiste MD Referring Physician: Not on Staff, Referring MD Allergies, Adverse Reactions, Alerts Substance Reaction Severity Status SUMAtriptan Active Medications amitriptyline 25 mg oral tablet 25 mg, 1, tablet, By Mouth, 3 times a day, # 270 tablet, Refills 0, Maintenance, 09/25/22 7:05:00 EDT, Partial fill upon patient request if the prescription is for a schedule II opioid drug. Start Date: 09/25/22 Status: Ordered Crutches See Instructions, # 1 pair, Maintenance, Dx:, 08/28/14 5:24:04, Compound Start Date: 08/28/14 Status: Ordered ibuprofen 600 mg oral tablet 1 tablet = 600 mg, By Mouth, 3 times a day, # 15 tablet, 0 Refills, Maintenance, 08/28/14 5:24:14 Start Date: 08/28/14 Stop Date: 09/02/14 Status: Ordered K-Dur 10 mEq oral tablet, extended release 4 tablet = 40 mEq, By Mouth, Daily, # 12 tablet, 0 Refills, Maintenance, ER Tablet Start Date: 05/15/12 Stop Date: 05/18/12 Status: Ordered Problem List Condition Confirmation Course Effective Dates Status Health St atus Informant Nightmare disorder Confirmed Active Post traumatic stress disorder (PTSD) Confirmed Active Major depression, recurrent, chronic 1 Confirmed Active 1moderate with anxious distress Results Radiology Reports * Exam Date Time Procedure Performing Provider Status 03/28/23 10:52 AM Chest 2 Views Fronta l and Lat Smiley Thompsonline; Auth (Verified) Notes: (Chest 2 Views Frontal and Lat) Reason For Exam: Chest Pain;Other: RESULT: Chest 2 Views Frontal and Lat Chest 2 Views Frontal and Lat Hx of Present Illness: chest pain; Reason: Other:; Chest Pain; Clinical Question(s): Other: COMPARISON: 03/24/2023 FINDINGS: LINES AND TUBES: None. LUNGS AND PLEURA: Clear lungs. Normal pulmonary vascularity. No pleural effusion. No pneumothorax. HEART, MEDIASTINUM AND KANDICE: Heart is normal in size. Normal mediastinal and hilar contour. BONES AND SOFT TISSUES: No acute abnormality. IMPRESSION: No acute abnormality. WSN: [id number] Ordering Physician: Rosaline Rios Dictated By: Caleb Jesus MD Dictated Date/Time: 03/28/23 11:01 a Reviewed By: Caleb Jesus MD Signed By: Caleb Jesus MD Signed Date/Time: 03/28/23 11:01 am Transcribed By: SUDARSHAN Transcribed Date/Time: 03/28/23 11:01 am Vital Signs Most recent to oldest [Reference Range]: 1 2 3 Oxygen Saturation [94-100 %] 98 % (03/28/23 2:36 PM) 98 % (03/28/23 12:32 PM) 100 % (03/28/23 11:20 AM) Pulse Rate [55-90 bpm] 64 bpm (03/28/23 2:36 PM) 65 bpm (03/28/23 12:32 PM) 68 bpm (03/28/23 11:20 AM) Blood Pressure [90-138/55-84 mm Hg] 112/80mm Hg (03/28/23 2:36 PM) 117/70mm Hg (03/28/23 12:32 PM) 116/77mm Hg (03/28/23 11:20 AM) Respiratory Rate [16-30 br/min] 20 br/min (03/28/23 2:36 PM) 21 br/min (03/28/23 12:32 PM) 18 br/min (03/28/23 11:20 AM) Temperature [96.8-100.4 DegF] 97.8 DegF (03/28/23 12:32 PM) 97.6 DegF (03/28/23 11:20 AM) 97.6 DegF (03/28/23 10:30 AM) Mode of Delivery (Oxygen) Room air (03/28/23 2:36 PM) Room air (03/28/23 12:32 PM) Room air (03/28/23 11:20 AM) Blood pressure sites Arm, left (03/28/23 2:36 PM) Arm, left (03/28/23 12:32 PM) Arm, right (03/28/23 11:20 AM) Temperature Route Oral (03/28/23 12:32 PM) Oral (03/28/23 11:20 AM) Oral (03/28/23 10:30 AM) EKG study * Event Display: ECG 12-Lead Authored Date: [id number] Please click on pdf link to open report * Event Display: ECG 12-Lead Authored Date: [id number] Ventricular Rate: 73 BPM Atrial Rate: 73 BPM P-R Interval: 132 ms QRS Duration: 88 ms Q-T Interval: 358 ms QTC Calculation(Bazett): 394 ms P [place]: 38 degrees R [place]: 46 degrees T [place]: 8 degrees Normal sinus rhythm Normal ECG When compared with ECG of 24-MAR-2023 20:47, No significant change was found Confirmed by YENNI LAUGHLIN ([id number]) on 03/28/2023 1:04:17 PM [place]: YENNI LAUGHLIN Note * Joanna Alford DO: PERFORM Event Display: Patient Education Leaflets Authored Date: [id number] Anxiety??Reaction ?? [id number] Anxiety??Reaction Anxiety is the feeling we all get when we think something bad might happen. It is a normal responseto stress. It most often causes only a mild reaction. But it can interfere with daily life when anxiety is more severe. In some cases, you may not know what you???re anxious about. Anxiety seems to have both mental and physical triggers. You may have stress from home and family. Or work and social relationships. Anxiety tends to run in families. This may mean it???s linked to genes. During an anxiety reaction, you may feel: ??? Helpless ??? Nervous ??? Depressed ??? Grouchy Your body may show signs of anxiety in many ways. You may have: ??? Dry mouth ??? Shakiness ??? Dizziness ??? Weakness ??? Trouble breathing ??? Fast breathing ???Chest pressure ??? Sweating ??? Headache ??? Nausea ??? Diarrhea ??? Tiredness ??? Inability to sleep ??? Sexual problems Home care Try to find those things that set off anxiety in your life. They may not be obvious. They may include: ??? Daily hassles of life. This can include traffic jams, missed appointments, or car troubles. ???Major life changes. This means both good changes, such as a new baby or job promotion. This can also mean tough life changes, such as loss of a job or loss of a loved one. ??? Overload. This means feeling that you have too many responsibilities. And that you can't take care of all of them. ??? Feeling helpless. You may feel you don???t have any control or choices. You may feel that your problems can't be solved. Notice how your body reacts to stress. This will help you take action before the stress sets off anxiety. When you can, make changes to reduce the sources of your stress. But stress in life often can't be prevented. It is important to learn how to manage stress to reduce anxiety. There are many proven methods that will reduce your anxiety. These include: ??? Exercise ??? Good nutrition ??? Getting enough sleep ??? Relaxation methods ??? Breathing exercises ??? Visualization ??? Biofeedback ??? Meditation ??? Counseling ??? Medicine For more information about this, talk with your healthcare provider. Or check online or at your local library or bookstore. You'll find many books and audiobooks on this subject. ?? Follow-up care If you feel your anxiety is not getting better with self-help, call your healthcare provider. Or make an appointment with a counselor. You may need short-term counseling or medicine to help you manage anxiety. ?? Call 911 Call 911 if any of the following occur: ??? Trouble breathing ??? Confusion ??? Drowsiness or trouble waking up ??? Fainting ??? Rapid heart rate ??? Seizure ??? New chest pain that becomes more severe, lasts longer, or spreads into your shoulder, arm, neck, jaw, or back Call or text [phone] if you have thoughts of harming yourself or others. You will be connected to trained crisis counselors at the [employer]. An online chat option is also available at www.suicidepreJaypore.org. You can also call Lifeline at 250-951-UKUW (139-157-1344). Lifeline is free and available 09/12. ?? When to get medical advice Call your healthcare provider right away if any of the following occur: ??? Symptoms that don't improve or get worse, such as feelings of hopelessness or overwhelming sadness ??? Severe headache not eased by rest and mild pain medicine The [employer]icide Prevention [employer] is available at 784-464-SWYK (637-619-4844). The Lifeline is available 09/12 and provides free and confidential support. The [employer] also has an online chat at www.[employer].org. ?? Last Reviewed Date: 2021 ?? [employer]. All rights reserved. This information is not intended as a substitute for professional medical care. Always follow your healthcare professional's instructions. ?? * Joanna Alford DO: PERFORM Event Display: Patient Education Leaflets Authored Date: [id number] Uncertain Causes of Chest Pain ?? [id number] Uncertain Causes of Chest Pain Chest pain can happen for a number of reasons. Sometimes the cause can't be determined. If your??condition does not seem serious, and your pain does not appear to be coming from your heart, your healthcare provider may recommend watching it closely. Sometimes the signs of a serious problem take more time to appear. Many problems not related to your heart can cause chest pain. These include: ??? Musculoskeletal. Costochondritis is an inflammation of the tissues around the ribs that can occur from trauma or overuse injuries, or a strain of the muscles of the chest wall. ??? Respiratory. Pneumonia, collapsed lung (pneumothorax), or inflammation of the lining of the chest and lungs (pleurisy). ??? Gastrointestinal. Esophageal reflux, heartburn, ulcers, or gallbladder disease. ??? Anxiety and panic disorders ??? Nerve compression and inflammation ??? Rare problems such as aortic aneurysm or aortic dissection (a swelling of the large artery coming out of the heart or a tear in the wall of the artery), or pulmonary embolism (a blood clot in the lungs). Home care After your visit, follow these recommendations: ??? Rest today and avoid strenuous activity. ??? Take any prescribed medicine as directed. ??? Be aware of any recurrent chest pain and notice any changes ?? Follow-up care Follow up with your healthcare provider if you don't start to feel better within 24 hours, or as advised. ?? Call 911 Call 911 if any of these occur: ??? A change in the type of pain: if it feels different, becomes more severe, lasts longer, or begins to spread into your shoulder, arm, neck, jaw or back ??? Shortness of breath or increased pain with breathing ??? Weakness, dizziness, or fainting ??? Rapid heartbeat ??? Crushing sensation in your chest ??? Coughing up more than a small amount of blood. ?? When to seek medical advice Call your healthcare provider right away if any of the following occur: ??? Cough with dark coloredsputum (phlegm) or small amount of blood ??? Fever of 100.4??F??(38??C) or higher, or as directed by your healthcare provider ??? Swelling, pain or redness in one leg ?? Last Reviewed Date: 2021 ?? 5011-3933 [employer]. All rights reserved. This information is not intended as a substitute for professional medical care. Always follow your healthcare professional's instructions. ?? Patient Care team information Care Team Personnel Name: Josh Downing NP Position: Reference Physician Member Role: PCP Address: Address: [address] [place] [address]- Name: Emerita Jean Baptiste MD Position: [facility] ED Medicine MD Member Role: Admitting Physician Address: Address: [address] [place] [address] [place] [address]- Name: Naomie Irwin Position: [facility] ED TA [facility] Name: Joanna Alford DO Position: [facility] Resident Member Role: ED Resident Address: Address: [address] [place] [address] [place] [address]- [place] Care Team Related Persons Name: SURAJ TOPETE Address: home [address] [place] [address] Name: PATIENT, STATES NOONE Name: ORESTES REBOLLEDO Address: home [address] [place] [address]
--- OUTSIDE RECORDS SUMMARY | 2023-06-11 09:28 | XMS_ITS | Continuity of Care Document ---
Author Name Unknown Organization [facility] ter Address [address] [place] [address]- Care Team Providers Care Information Resource Consultant Name Role Phone Chang GARCIA, Josh Rose Primary Care Physician [phone] [facility] Date(s): 03/24/23 - 03/25/[address] [address]- Discharge Disposition: A-D/C Walkout Attending Physician: Not on Staff, Attending MD Admitting Physician: Not on Staff, Admitting MD Referring Physician: Not on Staff, Referring [...] Exam Date Time Procedure Performing Provider Status 03/24/23 9:11 PM Chest 2 Views Frontal and Lat Benny Giraldo (Verified) Notes: (Chest 2 Views Frontal and Lat) Reason For Exam: Chest Pain;Other: RESULT: Chest 2 Views Frontal and Lat Chest 2 Views Frontal and Lat Hx of Present Illness: Patient reports left sided chest pain with radiation to lefty arm, back and jaw.; Reason: Other:; Chest Pain; Clinical Question(s): Other: COMPARISON: 08/08/2022. FINDINGS: LINES AND TUBES: None. LUNGS AND PLEURA: Clear lungs. Normal pulmonary vascularity. No pleural effusion. No pneumothorax. HEART, MEDIASTINUM AND KANDICE: Heart is normal in size. Normal mediastinal and hilar contour. BONES AND SOFT TISSUES: No acute abnormality. IMPRESSION: No acute abnormality. WSN: [id number] Ordering Physician: Miquel Ramos Dictated By: Wicho Celeste MD Dictated Date/Time: 03/24/23 9:25 pm Reviewed By: Wicho Celeste MD Signed By: Wicho Celeste MD Signed Date/Time: 03/24/23 9:25 pm Transcribed By: SUDARSHAN Transcribed Date/Time: 03/24/23 9:25 pm Vital Signs Most recent to oldest [Reference Range]: 1 2 Height 157 cm (03/24/23 9:05 PM) 157 cm (03/24/23 8:48 PM) Weight 68.9 kg (03/24/23 9:05 PM) 68.9 kg (03/24/23 8:48 PM) Oxygen Saturation [94-100 %] 100 % (03/24/23 8:48 PM) 100 % (03/24/23 8:34 PM) Pulse Rate [55-90 bpm] 68 bpm (03/24/23 8:48 PM) 82 bpm (03/24/23 8:34 PM) Body Mass Index [18.5-24.99 kg/m2] 27.95 kg/m2 *H* (03/24/23 8:48 PM) Blood Pressure [90-138/55-84 mm Hg] 129/ 90mm Hg (03/24/23 8:48 PM) Temperature [96.8-100.4 DegF] 97.7 DegF (03/24/23 8:48 PM) Mode of Delivery (Oxygen) Room air (03/24/23 8:48 PM) Room air (03/24/23 8:34 PM) Blood pressure sites Leg, right (03/24/23 8:48 PM) Temperature Route Oral (03/24/23 8:48 PM) Dry Weight 68.9 kg (03/24/23 9:05 PM) 68.9 kg (03/24/23 8:48 PM) Weight Obtained Via Standing scale (03/24/23 8:48 PM) Dry Weight Obtained Via Standing scale (03/24/23 8:48 PM) EKG study * Event Display: EKG Authored Date: * Event Display: ECG 12-Lead Authored Date: Please click on pdf link to open report * Event Display: ECG 12-Lead Authored Date: Ventricular Rate: 70 BPM Atrial Rate: 70 BPM P-R Interval: 142 ms QRS Duration: 88 ms Q-T Interval: 382 ms QTC Calculation(Bazett): 412 ms P [place]: 51 degrees R [place]: 47 degrees T [place]: 37 degrees Normal sinus rhythm Normal ECG When compared with ECG of 08-AUG-2022 01:01, No significant change was found Confirmed by CECILE ARCEO ([id number]) on 03/25/2023 1:16:07 PM [place]: CECILE ARCEO Patient Care team information Care Team Personnel Name: Josh Downing NP Position: Reference Physician Member Role: PCP Address: Address: [address] [place] [address]- Care Team Related Persons Name: SURAJ TOPETE Address: home [address] [place] [address] Name: PATIENT, STATES NOONE Name: ORESTES REBOLLEDO Address: home [address] [place] [address]
[2023-06-11 11:07] VITALS: BP 118/74; PULSE 73; TEMP 36.8; O2SAT 98; BMI 27.2
--- NOTE | 2023-06-11 11:07 | AM.OFFWIN_ITS ---
Intake Vital Signs 06/11/23 11:07 Height 5 ft 1 in Weight 144 lb BMI 27.2 BP 118/74 Blood Pressure Location Lt brachial Position Sitting Pulse 73 Pulse Source Pulse Oximeter Temp 98.3 F Temp Source Temporal Artery Scan Pulse Oximetry (%) 98 Oxygen Delivery Method Room Air Intake Visit Reasons: EP Fever, urinating diff/Diarrhea [phone] Intake Note: pt is here today for fever urinating different diarrhea started 3 days ago Patient Tobacco Use Status: Former Tobacco user Allergies sumatriptan Allergy (Severe, Verified 06/11/23 11:08) Tachycardia, facial numbness pollen Allergy (Unknown, Uncoded 04/14/23 07:47) rASH, sob tuna Allergy (Unknown, Uncoded 04/14/23 07:47) anaphylaxis Do you need a note to return to daycare/school/sports/work: Yes HPI EP Fever, urinating diff/Diarrhea [phone] HPI Details 33-year-old male presents to the office for a sick visit. For the past week he is complaining of low back pain and difficulty passing urine. The symptoms were followed by low-grade fever and chills. Symptoms started after he visited the home infested with mice. One episode of vomiting. [facility] Medical History COVID Tension headache Asthma No known health problems Surgical History S/P appendectomy Family History Father Hypertension Diabetes Substance use disorder Mother No problems noted. Paternal Grandfather Diabetes Paternal Grandfather Substance use disorder Maternal Aunt Substance use disorder Maternal Grandmother Substance use disorder Paternal Aunt Substance use disorder Social History Household Members: Spouse and Family Housing: House Do you presently have visiting nurse or other home services: No Alcohol intake: never Patient Tobacco Use Status: Former Tobacco user e-Cigarette/Vaping Use: Currently Using Second Hand Smoke Exposure: No service: No Current occupational status: employed Cognitive needs: No Hearing needs: No Vision needs: No Physical Exam Vital Signs: Last Vital Signs Temp 98.3 F 06/11/23 11:07 Pulse 73 06/11/23 11:07 BP 118/74 06/11/23 11:07 Pulse Ox 98 06/11/23 11:07 Oxygen Delivery Method Room Air 06/11/23 11:07 BMI result Body Mass Index 27.2 Const General: cooperative and healthy appearing Nutritional Appearance: well nourished Orientation/consciousness: patient oriented x3 Limitations: no limitations HEENT Head: Yes normal to inspection Eyes General: appearance normal, both eyes and all related structures Neck Neck: Yes normal visual inspection Chest Chest palpation & inspection: normal palpation of entire chest wall Resp Effort & Inspection: normal respiratory effort Neuro General: patient oriented x3 Results AMB Urinalysis, Automated UA Leukoctes 0 Valarie/uL Last Edit by Tyler Angel CMA on 06/11/23 11:35 UA Nitrite Negative Last Edit by Tyler Angel CMA on 06/11/23 11:35 UA Urobilinogen 0.2 mg/dL Last Edit by Tyler Angel CMA on 06/11/23 11 :35 UA Protein 0 mg/dL Last Edit by Tyler Angel CMA on 06/11/23 11:35 UA pH 6.0 Last Edit by Tyler Angel CMA on 06/11/23 11:35 UA Blood 0 Jong/uL Last Edit by Tyler Angel CMA on 06/11/23 11:35 UA Specific Swain 1.020 Last Edit by Tyler Angel CMA on 06/11/23 11:35 UA Ketone Negative Last Edit by Tyler Angel CMA on 06/11/23 11:35 UA Bilirubin 0 mg/dL Last Edit by Tyler Angel CMA on 06/11/23 11:35 UA Glucose 0 mg/dL Last Edit by Tyler Angel CMA on 06/11/23 11:35 Assessment & Plan Assessment & Plan (1) Abdominal pain: Code(s): R10.9 - Unspecified abdominal pain Plan: Urinalysis revd. Bactrim for 7 days. If sx not better, to follow up here Orders: Orders AMB Urinalysis Automated Today Z13.9 - Encounter for screening, unspecified Coding Level of Care Code Est Pt Level 3 (24991) Diagnoses Abdominal pain R10.9
== END 2023-06-11 12:06 | disposition home or self-care (01) ==
PROVIDERS: PCP Nurse Practitioner Family; Visit Provider Internal Medicine
DX: R10.9 Unspecified abdominal pain (principal)
CPT/HCPCS: 81003; 99213

== ENCOUNTER 2023-08-14 08:11 | Outpatient (AMB) | payer OTHER, SELFPAY ==
--- NOTE | 2023-08-14 08:14 | AM.OFFWIN_ITS ---
Intake Vital Signs 08/14/23 08:15 Height 5 ft 1 in Weight 144 lb BMI 27.2 BP 126/78 Blood Pressure Location Lt brachial Position Sitting Pulse 69 Pulse Source Pulse Oximeter Pulse Oximetry (%) 97 Oxygen Delivery Method Room Air Intake Visit Reasons: Chest Pain 24 hrs/weak heart muscle (lobby) Intake Note: Pt is here today for a walk in visit. Pt c/o chest pain for last 24 hours on the L side and he feels the pain on the back of his shoulder and he feels like his arm is heavy. Patient Tobacco Use Status: Former Tobacco user Allergies sumatriptan Allergy (Severe, Verified 08/14/23 08:16) Tachycardia, facial numbness pollen Allergy (Unknown, Uncoded 08/14/23 08:16) rASH, sob tuna Allergy (Unknown, Uncoded 08/14/23 08:16) anaphylaxis HPI HPI Comments History of Present Illness Details 33 y/o male patient who presents to walk in clinic with c/o chest pain x 24 hours. Pt has a strong family h/o Cardiac releated problems with . Brother 6 months from [facility]. Pt worried he might be having a heart attack. Denies Anxiety or Depression. Reports dealing with Brother's well. Denies Alcohol, drugs use. Denies smoking weed or Cigarettes. [facility] Medical History COVID Tension headache Asthma No known health problems Surgical History S/P appendectomy Family History Father Hypertension Diabetes Substance use disorder Mother No problems noted. Paternal Grandfather Diabetes Paternal Grandfather Substance use disorder Maternal Aunt Substance use disorder Maternal Grandmother Substance use disorder Paternal Aunt Substance use disorder Social History Household Members: Spouse and Family Housing: House Do you presently have visiting nurse or other home services: No Alcohol intake: never Patient Tobacco Use Status: Former Tobacco user e-Cigarette/Vaping Use: Currently Using Second Hand Smoke Exposure: No service: No Current occupational status: employed Cognitive needs: No Hearing needs: No Vision needs: No Review of Systems Const All systems reviewed & are unremarkable except as noted in HPI and below Physical Exam Vital Signs: Last Vital Signs Pulse 69 08/14/23 08:15 BP 126/78 08/14/23 08:15 Pulse Ox 97 08/14/23 08:15 Oxygen Delivery Method Room Air 08/14/23 08:15 BMI result Body Mass Index 27.2 Const General: comfortable and no acute distress Nutritional Appearance: well nourished Orientation/consciousness: patient oriented x3 Resp Effort & Inspection: normal respiratory effort and able to speak in complete sentences Auscultation: clear to auscultation bilaterally, no crackles, no rales, no rhonchi and no wheezes Cardio Rate: regular rate Rhythm: regular rhythm Heart sounds: S1 normal heart sound present and S2 normal heart sound present Neuro General: patient oriented x3 and gait normal Psych Speech and movement: Normal speech and movement present Affect: normal affect Office Procedures EKG [id number], Complete Assessment & Plan Assessment & Plan (1) Chest pain: Code(s): R07.9 - Chest pain, unspecified Qualifiers: Chest pain type: unspecified Qualified Code(s): R07.9 - Chest pain, unspecified Plan: - Probably Anxiety related vs Cardiac. - EKG Sinus normal - Take Ibuprofen for pain relief of shoulder and Arm - Encouraged lifestyle changes. - Rxd Hydroxyzine for Anxiety PRN - RTC if not improved. - Advised ED if getting worse. (2) Anxiety: Code(s): F41.9 - Anxiety disorder, unspecified Plan: - Will start him on Hydroxyzine TID for Anxiety - Advised Therapy to cope with grief. Medications: New ibuprofen 600 mg PO Q6H PRN 20 tabs 0RF pain R07.9 - Chest pain, unspecified hydroxyzine HCl 25 mg PO TID PRN 30 tabs 0RF anxiety F41.9 - Anxiety disorder, unspecified Coding Level of Care Code Est Pt Level 4 (26255) Diagnoses Chest pain, unspecified type R07.9 Chest pain type: unspecified Anxiety F41.9 CPT Codes EKG - CPT: 01461-[id number], Complete ([id number]) Time Spent (min) 20
[2023-08-14 08:15] VITALS: BP 126/78; PULSE 69; O2SAT 97; BMI 27.2
== END 2023-08-14 08:46 | disposition home or self-care (01) ==
PROVIDERS: PCP Nurse Practitioner Family; Visit Provider Nurse Practitioner Family
DX: R07.9 Chest pain, unspecified (principal); F41.9 Anxiety disorder, unspecified
CPT/HCPCS: 93000; 99214

== ENCOUNTER 2023-08-15 08:07 | Outpatient (REF) | payer OTHER, SELFPAY ==
[2023-08-15 11:19] LABS: C Reactive Protein < 0.10 mg/dL (< or = 0.50)
[2023-08-15 12:17] LABS: Erythrocyte Sedimentation Rate 2 MM/HR (0-15)
== END 2023-08-15 08:08 | disposition home or self-care (01) ==
LOC: HO.HMGCLDS 08:07
PROVIDERS: PCP Nurse Practitioner Family; Visit Provider Physician Assistant Medical
DX: R07.2 Precordial pain (principal)
CPT/HCPCS: 36415; 85652; 86140

== ENCOUNTER 2023-09-29 11:43 | Outpatient (AMB) | payer OTHER, SELFPAY ==
[2023-09-29 12:48] VITALS: BP 112/76; PULSE 60; TEMP 36.6; O2SAT 98; BMI 27.6
--- NOTE | 2023-09-29 12:48 | AM.OFFWIN_ITS ---
Intake Vital Signs 09/29/23 12:48 Height 5 ft 1 in Weight 146 lb BMI 27.6 BP 112/76 Blood Pressure Location Rt brachial Position Sitting Pulse 60 Pulse Source Pulse Oximeter Temp 97.8 F Temp Source Oral Pulse Oximetry (%) 98 Oxygen Delivery Method Room Air Intake Visit Reasons: EP right hand fingers tingling [phone] Intake Note: pt is here for right hand tingling and falls asleep earier then normal. was here last week and would like it checked Patient Tobacco Use Status: Former Tobacco user Allergies sumatriptan Allergy (Severe, Verified 09/29/23 12:49) Tachycardia, facial numbness pollen Allergy (Unknown, Uncoded 08/14/23 08:16) rASH, sob tuna Allergy (Unknown, Uncoded 08/14/23 08:16) anaphylaxis Do you need a note to return to daycare/school/sports/work: Yes HPI HPI Comments History of Present Illness Details Patient presents to the walk-in today for sick visit He was evaluated here last week for laceration to the right index finger Today reports that he has had some numbness and tingling to finger from the tip down into the palm. States he has never had this sensation before, has a living present since the injury Denies fevers, chills, weakness, dizziness, shortness of breath, nausea, vomiting, diarrhea PFSH Medical History COVID Tension headache Asthma No known health problems Surgical History S/P appendectomy Family History Father Hypertension Diabetes Substance use disorder Mother No problems noted. Paternal Grandfather Diabetes Paternal Grandfather Substance use disorder Maternal Aunt Substance use disorder Maternal Grandmother Substance use disorder Paternal Aunt Substance use disorder Social History Household Members: Spouse and Family Housing: House Do you presently have visiting nurse or other home services: No Alcohol intake: never Patient Tobacco Use Status: Former Tobacco user e-Cigarette/Vaping Use: Currently Using Second Hand Smoke Exposure: No service: No Current occupational status: employed Cognitive needs: No Hearing needs: No Vision needs: No Review of Systems Const All systems reviewed & are unremarkable except as noted in HPI and below Physical Exam Vital Signs: Last Vital Signs Temp 97.8 F 09/29/23 12:48 Pulse 60 09/29/23 12:48 BP 112/76 09/29/23 12:48 Pulse Ox 98 09/29/23 12:48 Oxygen Delivery Method Room Air 09/29/23 12:48 BMI result Body Mass Index 27.6 General: awake, alert, oriented. Answers questions appropriately. Fully engaged in examination. Skin: warm, dry, intact HEENT: Normocephalic. Hearing intact. Cardiac: External chest normal in appearance. Respiratory: No cough, audible wheezing or stridor. Abdomen: without gross distension. MS: No obvious swelling or deformities. Small healed laceration noted to index finger. No swelling, erythema, lymphangitis, purulent discharge noted. Neurological: Oriented to person, place, time and situation. Thought process intact. No gait abnormalities appreciated. Psychiatric: Appropriate mood and affect. Good judgment and insight. Assessment & Plan Assessment & Plan (1) Paresthesia of finger: Code(s): R20.2 - Paresthesia of skin Plan Reassurance provided. Wound appears to be healing well. No signs of local or systemic infection. Maybe some residual nerve damage from the laceration injury. Patient was advised this should heal on its own over the next several months. If symptoms persist or worsen follow up with PCP to discuss potential referral to orthopedics/hand surgeon at [facility]. All questions and concerns were answered, patient agrees with the plan. Follow up with PCP or return here for any new or worsening symptoms Coding Level of Care Code Est Pt Level 3 (09881) Diagnoses Paresthesia of finger R20.2
== END 2023-09-29 13:27 | disposition home or self-care (01) ==
PROVIDERS: PCP Nurse Practitioner Family; Visit Provider Registered Nurse Emergency
DX: R20.2 Paresthesia of skin (principal); Z04.2 Encounter for examination and observation following work accident
CPT/HCPCS: 99213

== ENCOUNTER 2023-12-30 15:07 | Outpatient (AMB) | payer OTHER, SELFPAY ==
[2023-12-30 15:10] VITALS: BP 122/80; PULSE 72; O2SAT 97; BMI 26.6
--- NOTE | 2023-12-30 15:10 | A.OFFPC_ITS ---
Vital Signs 12/30/23 15:10 Height 5 ft 1 in Weight 141 lb BMI 26.6 BP 122/80 Blood Pressure Location Rt brachial Position Sitting Pulse 72 Pulse Source Pulse Oximeter Pulse Oximetry (%) 97 Oxygen Delivery Method Room Air Intake Visit Reasons: Annual PE missed on 12/08/23 Intake Note: pt is here for annual physical exam, patient states he had [place] [facility] [place] Verification Lead Required: No Accompanied by: Self / Same As Patient Allergies sumatriptan Allergy (Severe, Verified 12/30/23 15:11) Tachycardia, facial numbness pollen Allergy (Unknown, Uncoded 08/14/23 08:16) rASH, sob tuna Allergy (Unknown, Uncoded 08/14/23 08:16) anaphylaxis Tobacco use date assessed: 12/30/23 Dental Screening Dental Screen Date: 12/30/23 Did you have a dental visit in the last 12 months?: Yes Did you have a dental problem in the last 6 months where you did not have access to dental care?: No Was dental information given to patient?: Patient has dentist HPI Annual PE missed on 12/08/23 HPI Details Pt is here for a PE. Will order labs. Pt was seen in the ER on 12/22 c/o palpitations and chest pain (please see documentation). Pt was reportedly outside looking at someone and could see their lips moving but could not hear what they were saying. He also saw someone across the parking lot that looked very small and distorted. He was told that he fainted. Pt had labs, EKG, and chest XR, missing results. ? dehydration vs panic attack vs vasovagal response. Pt reports that he had been off his hydroxyzine for 2 days when this occured. Denies any current chest pain and palpitations. [facility] Medical History COVID Tension headache Asthma No known health problems Surgical History S/P appendectomy Family History Father Hypertension Diabetes Substance use disorder Mother No problems noted. Paternal Grandfather Diabetes Paternal Grandfather Substance use disorder Maternal Aunt Substance use disorder Maternal Grandmother Substance use disorder Paternal Aunt Substance use disorder Social History Household Members: Spouse and Family Housing: House Do you presently have visiting nurse or other home services: No Alcohol intake: never Patient Tobacco Use Status: Former Tobacco user e-Cigarette/Vaping Use: Currently Using Second Hand Smoke Exposure: No service: No Current occupational status: employed Cognitive needs: No Hearing needs: No Vision needs: No Questionnaire PHQ-9 Over the last 2 weeks, how often have you been bothered by any of the following problems? 1. Little interest or pleasure in doing things: not at all 2. Feeling down, depressed, or hopeless: several days 3. Trouble falling or staying asleep, or sleeping too much: more than half the days 4. Feeling tired or having little energy: several days 5. Poor appetite or overeating: several days 6. Feeling bad about yourself - or that you are a failure or have let yourself or your family down: not at all 7. Trouble concentrating on things, such as reading the newspaper or watching television: not at all 8. Moving or speaking so slowly that other people could have noticed. Or the opposite - being so fidgety or restless that you have been moving around a lot more than usual: several days 9. Thoughts that you would be better off or of hurting yourself in some way: not at all Total score: 6 Depression Screening Interpretation: Negative Depression Screening Done: Yes 93027 - PHQ-9 Billing: Yes Source: Developed by Drs. García Spaulding, Jacqueline Sheth, Willie Lambert and colleagues, with an educational odalis from [employer]. Thrive Questionnaire Date Thrive assessed: 12/30/23 I am a: Patient What is your living situation today?: I have a steady place to live Within the past 12 months, did the food you bought not last and you didn't have the money to get more?: Never true Within the past 12 months, did you worry whether your food would run out before you got money to buy more?: Never true Do you have trouble paying for medicines?: No Do you have trouble getting transportation to medical appointments?: No Do you have trouble paying your heating and electricity bill?: No Do you have trouble taking care of your child, family member or friend?: No Do you have trouble with day-to-day activities such as bathing, preparing meals, shopping, managing finances, etc.?: No Are you currently unemployed and looking for a job?: No Are you interested in more education?: No Please select the resources that you would like help with: None Currently or been in a relationship where the following occur: No concerns reported THRIVE Score: 0 AUDIT C Alcohol Use Questionnaire (AUDIT-C) 1. How often do you have a drink containing alcohol?: Never 3. How often do you have six or more drinks on one occasion?: Never Total Score: 0 Score Reviewed/Action Taken: Yes INES-7 AMB Questionnaire INES-7 Date INES - 7 assessed: 12/30/23 Feeling nervous, anxious, or on edge: 1 = Several days Not being able to stop or control worryin = Several days Worrying too much about different things: 1 = Several days Trouble relaxin = Several days Being so restless that it is hard to sit still: 1 = Several days Becoming easily annoyed or irritable: 1 = Several days Feeling afraid as if something awful might happen: 1 = Several days Total INES-7 score (0-4 normal; 5-9 mild; 10-14 moderate; 15-21 severe): 7 Source: Developed by Drs. García Spaulding, Jacqueline Sheth, Willie Lambert and colleagues, with an educational odalis from [employer]. INES-7 Assessment Billing INES-7 Assessment Tool: INES-7 Assessment [id number] Review of Systems Const Denies chills and Denies fever(s) Eyes Denies blurry vision ENT Denies vertigo, Denies dizziness and Denies sore throat Card Denies chest pain at rest, Denies chest pain with activity, Denies diaphoresis, Denies dyspnea and Denies dyspnea on exertion Resp Denies cough, Denies dyspnea, Denies dyspnea on exertion and Denies wheezing GI Denies abdominal pain, Denies melena, Denies hematochezia, Denies constipation, Denies diarrhea and Denies loose stools Denies hematuria Musc Denies numbness and Denies tingling Skin/Breast Denies lesions Neuro Denies vertigo, Denies dizziness, Denies numbness and Denies tingling Psych Denies anxiety, Denies depression, Denies homicidal ideation, Denies suicidal ideation and Denies other (substance abuse) Aller/Immun Denies wheezing Physical exam (Primary Care) Vital Signs: Last Vital Signs Pulse 72 12/30/23 15:10 BP 122/80 12/30/23 15:10 Pulse Ox 97 12/30/23 15:10 Oxygen Delivery Method Room Air 12/30/23 15:10 BMI result Body Mass Index 26.6 Tobacco/Smoking Status: Tobacco use Status Tobacco use date assessed 12/30/23 12/30/23 15:12 Patient Tobacco Use Status Former Tobacco user 12/30/23 15:12 e-Cigarette/Vaping Use Currently Using 12/30/23 15:12 PHQ-9: PHQ-9 Score PHQ-9: Total score 6 12/30/23 15:30 Depression Screening Interpretation: Negative Thrive Assessment: Date of Thrive Assessment Date Thrive assessed 12/30/23 12/30/23 15:12 Currently or been in a relationship where the following occur: No concerns reported Const General: cooperative Nutritional Appearance: well nourished Orientation/consciousness: patient oriented x3 HENMT Head: Yes normal to inspection, Yes normocephalic and Yes atraumatic Ears: TM's normal bilaterally Eyes General: appearance normal, both eyes and all related structures Alignment and Position: alignment normal and position normal Neck Neck: Yes normal visual inspection and Yes no lymphadenopathy Thyroid: Thyroid normal Resp Effort & Inspection: normal respiratory effort Auscultation: clear to auscultation bilaterally Cardio Rate: regular rate Rhythm: regular rhythm Heart sounds: S1 normal heart sound present, S2 normal heart sound present and no murmurs GI Palpation (GI): Soft to palpation and nontender Auscultation: normal bowel sounds Male General Exam: Yes normal external exam Penis: normal penis Scrotum: scrotum normal, testes descended bilaterally and no inguinal hernias Testes: no testicular mass Skin Rashes: no rashes Neuro General: patient oriented x3, moves all extremities, no focal motor deficits and deep tendon reflexes 2+ bilaterally Romberg Test: Negative Psych Appearance: grossly normal Mental Status: mental status grossly normal Speech and movement: Normal speech and movement present Affect: normal affect Attitude: cooperative Thought process: Normal thought process present Thought content: Normal thought content present Insight: Good insight present (Psych) Judgement: Good judgement present (Psych) Assessment and Plan Assessment & Plan (1) Encounter for routine adult physical exam with abnormal findings: Code(s): Z00.01 - Encounter for general adult medical examination with abnormal findings (2) Heart palpitations: Code(s): R00.2 - Palpitations Plan: previous holter/cardiac eval were benign. ? anxiety/panic attack (3) Fainted: Code(s): R55 - Syncope and collapse Plan: panic attack vs vasovagal Plan The patient agreed to the use of a medical or surgical instrument maker for this encounter. Scribed for ELICEO Scales-BC by Tania Salomon medical or surgical instrument maker, on 12/30/2023 at 15:30 EST. Orders: Orders Comprehensive Spencer. Panel Fast Today Z00.01 - Encounter for general adult medical examination with abnormal findings TSH reflex Free T4 Today Z00.01 - Encounter for general adult medical examination with abnormal findings Complete Blood Count Auto Diff Today Z00.01 - Encounter for general adult medical examination with abnormal findings UA CC w/rflx Micro + Cult Today Z00.01 - Encounter for general adult medical examination with abnormal findings Lipid Panel Today Z00.01 - Encounter for general adult medical examination with abnormal findings Coding Level of Care Code Est Pt Level 3 (84376) Est Pt Prev Care 18-39y(97388) Diagnoses Encounter for routine adult physical exam with abnormal findings Z00.01 Heart palpitations R00.2 Fainted R55 Additional Codes INES-7 Assessment Billing - INES-7 Assessment Tool: INES-7 Assessment [id number] ([id number])
== END 2023-12-30 16:27 | disposition home or self-care (01) ==
PROVIDERS: PCP Nurse Practitioner Family; Visit Provider Nurse Practitioner Family
DX: Z00.00 Encounter for general adult medical examination without abnormal findings (principal); R00.2 Palpitations; R55 Syncope and collapse
CPT/HCPCS: 99213; 99395

== ENCOUNTER 2024-01-13 14:27 | Outpatient (AMB) | payer OTHER, SELFPAY ==
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
== END 2024-01-13 15:48 | disposition home or self-care (01) ==
LOC: HO.HOP 14:27
PROVIDERS: PCP Nurse Practitioner Family; Visit Provider Clinical Nurse Specialist Psychiatric/Mental Health
DX: F41.9 Anxiety disorder, unspecified (principal); R55 Syncope and collapse; R04.2 Hemoptysis; R51.9 Headache, unspecified; G89.29 Other chronic pain
CPT/HCPCS: 90792

== ENCOUNTER → 2024-01-13 14:27 | Outpatient (BNVA) | payer OTHER, SELFPAY | PROVIDERS: PCP Nurse Practitioner Family; Visit Provider Clinical Nurse Specialist Psychiatric/Mental Health | DX: R55 Syncope and collapse (principal); F41.9 Anxiety disorder, unspecified; R04.2 Hemoptysis; G89.29 Other chronic pain; R51.9 Headache, unspecified | CPT/HCPCS: 90792 ==

== ENCOUNTER 2024-01-16 06:23 | Outpatient (REF) | payer OTHER, SELFPAY ==
[2024-01-16 06:40] LABS: MANUAL DIFF FLAG NO
[2024-01-16 07:15] LABS: Basophils Absolute Auto 0.1 X10*3/uL (0.0-0.2); Basophils Percent Auto 0.5 % (0-2); Eosinophils Absolute Auto 0.2 X10*3/uL (0.0-0.4); Hematocrit 41.9 % (42.0-52.0); Hemoglobin 14.8 g/dl (14.0-18.0); Imm Gran Abs Auto 0.02 X10*3/uL (0.00-0.03); Imm Gran Pct Auto 0.2 % (0.0-0.4); Lymphocytes Absolute Auto 4.7 X10*3/uL (1.2-4.9); Lymphocytes Percent Auto 47.9 % (20-40); Mean Corpuscular HGB Conc 35.3 g/dl (31.0-36.0); Mean Corpuscular Hemoglobin 28.5 pg (27.0-33.0); Mean Corpuscular Volume 80.6 fL (80.0-98.0); Mean Platelet Volume 11.4 fL (9.4-12.4); Monocytes Absolute Auto 0.6 X10*3/uL (0.1-1.2); Neutrophils Absolute Auto 4.2 x10*3/uL (2.0-8.3); Neutrophils Percent Auto 43.4 % (45-73); Platelet Count 214 X10*3/uL (160-400); Red Cell Distribution Width 11.9 % (11.0-16.0); White Blood Count 9.8 X10*3/uL (4.8-10.8)
[2024-01-16 07:19] LABS: Fibrinogen 366 MG/DL (259-690); Prothrombin Time 12.6 SEC (11.1-13.3)
[2024-01-16 07:21] LABS: Partial Thromboplastin Time 32.8 SEC (26.0-36.8)
[2024-01-16 07:45] LABS: Alanine Aminotransferase 24 U/L (0-40); Albumin Level 4.5 g/dL (3.5-5.0); Alkaline Phosphatase 51 U/L (39-117); Anion Gap 12 (12-20); Aspartate Amino Transferase 20 U/L (5-37); Bilirubin Total 0.6 mg/dL (0.0-1.0); Blood Urea Nitrogen 14 mg/dL (9-16); Calcium 9.7 mg/dL (8.4-10.2); Carbon Dioxide 26 mmol/L (22-29); Chloride 105 mmol/L (96-108); Cholesterol 214 mg/dL (<200); Estimated Glomerular Filt Rate > 60; Glucose Fasting 93 mg/dL (60-99); HDL Cholesterol 33 mg/dL (>40); Sodium 139 mmol/L (135-145); Total Protein 7.9 g/dL (6.5-8.0); Triglycerides 552 mg/dL (<150)
[2024-01-16 09:32] LABS: Appearance Urine Clear; Color Urine Yellow; Glucose Urine UA Negative (Negative); Leukocyte Esterase Urine Negative (Negative); Nitrite Urine Negative (Negative); Urine Blood Negative (Negative); Urine Ketones Negative (Negative); Urine Protein Negative (Neg-Trace)
[2024-01-19 20:39] LABS: Factor VIII Activity 79 % normal (50-180)
== END 2024-01-16 06:24 | disposition home or self-care (01) ==
LOC: HO.LAB 06:23
PROVIDERS: PCP Nurse Practitioner Family; Visit Provider Nurse Practitioner Family
DX: Z00.01 Encounter for general adult medical examination with abnormal findings (principal); R04.2 Hemoptysis
CPT/HCPCS: 36415; 80053; 80061; 81003; 84443; 85025; 85240; 85250; 85384; 85610; 85730

== ENCOUNTER 2024-02-10 09:17 | Outpatient (AMB) | payer OTHER, SELFPAY ==
--- NOTE | 2024-02-10 09:22 | MHC.OFFVISPS ---
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 Allergies sumatriptan Allergy (Severe, Verified 12/30/23 15:11) Tachycardia, facial numbness pollen Allergy (Unknown, Uncoded 08/14/23 08:16) rASH, sob tuna Allergy (Unknown, Uncoded 08/14/23 08:16) anaphylaxis Medication List - Last Reconciled 02/10/24 by Gill Ventura APRN gabapentin 100 mg PO BID 30 days hydroxyzine HCl 25 mg PO TID PRN HPI- Psychiatric Chief Complaint: follow up HPI Past Psychiatric History: no previous psych treatment Assessment and Plan Assessment & Plan (1) New onset headache: Status: Acute Code(s): R51.9 - Headache, unspecified (2) Fainted: Status: Acute Qualifiers: Syncope type: unspecified Qualified Code(s): R55 - Syncope and collapse Code(s): R55 - Syncope and collapse (3) Generalized anxiety disorder with panic attacks: Status: Acute Code(s): F41.1 - Generalized anxiety disorder; F41.0 - Panic disorder [episodic paroxysmal anxiety] Plan rule out PTSD EKG ordered due to intermittent chest pain EEG rule out seizures duet o fainting, altered sense of reality for short periods,and aura start zoloft 25 mg with dinner daily recommended plenty of fluids recommend reducing or cutting out processed food s due tohigh cholesterol and triglycerides Medications: New sertraline (Zoloft) 25 mg PO DAILY 30 tabs 0RF On Hold gabapentin Hold Comment: pt not taking it 100 mg PO BID 30 days 60 caps 1RF Orders: Orders EEG ambulatory Today R29.818 - Other symptoms and signs involving the nervous system, R51.9 - Headache, unspecified, R55 - Syncope and collapse ECG 12 lead EKG Today G44.209 - Tension-type headache, unspecified, not intractable, R07.9 - Chest pain, unspecified Counseling and coordination of Care Pt. Self Management counseling: Mod caffeine/ETOH intake, Nutrition education and improvement, Sleep hygiene, General coping skills and Problem solving Medication management counseling: Effectiveness, Side effects, Dosing range, Duration, Drug interaction and Adherence Diagnosis and Prognosis Counseling: Accuracy of diagnosis, Prognosis over time, Impact of diagnosis on life functions, Impact of family relationship, Problematic behaviors secondary to diagnosis and Adequacy of current interventions Details: I spent 60 minutes reviewing the record, seeing the patient and documenting in the medical record. Counseling provided to the patient/caregiver as outlined below. Addressed patient/caregiver concerns regarding current medication regime including effective adherence. Addressed patient/caregiver concerns regarding diagnosis and prognosis including accuracy of diagnosis, prognosis over time, impact of diagnosis. Addressed patient/caregiver concerns regarding impact of recent stressors. [facility] Medical History COVID Tension headache Asthma No known health problems Surgical History S/P appendectomy Family History Father Hypertension Diabetes Substance use disorder Mother No problems noted. Paternal Grandfather Diabetes Paternal Grandfather Substance use disorder Maternal Aunt Substance use disorder Maternal Grandmother Substance use disorder Paternal Aunt Substance use disorder Social History Household Members: Spouse and Family Housing: House Do you presently have visiting nurse or other home services: No Alcohol intake: never Patient Tobacco Use Status: Former Tobacco user e-Cigarette/Vaping Use: Currently Using Second Hand Smoke Exposure: No service: No Current occupational status: employed Cognitive needs: No Hearing needs: No Vision needs: No Social History: lives with supportive and 4 children ages 7-14. He works FT at [employer]. Substance History: In past ETOH none in 11 yrs Trauma History: yes Coding Level of Care Code Est Pt Level 5 (14780) Therapy 30m w/E&M (86193) Diagnoses New onset headache R51.9 Syncope, unspecified syncope type R55 Syncope type: unspecified Generalized anxiety disorder with panic attacks F41.1; F41.0
== END 2024-02-10 10:22 | disposition home or self-care (01) ==
LOC: HO.HOP 09:17
PROVIDERS: PCP Nurse Practitioner Family; Visit Provider Clinical Nurse Specialist Psychiatric/Mental Health
DX: F41.1 Generalized anxiety disorder (principal); F41.0 Panic disorder [episodic paroxysmal anxiety]; R51.9 Headache, unspecified; R55 Syncope and collapse
CPT/HCPCS: 90833; 99215

== ENCOUNTER → 2024-02-10 09:17 | Outpatient (REF) | payer OTHER, SELFPAY ==
--- NOTE | 2024-02-10 10:44 | ECG_ITS ---
Test Reason : Tension head ache Blood Pressure : / mmHG Vent. Rate : 059 BPM Atrial Rate : 059 BPM P-R Int : 154 ms QRS Dur : 086 ms QT Int : 392 ms P-R-T Axes : 049 046 051 degrees QTc Int : 388 ms Sinus bradycardia Otherwise normal ECG When compared with ECG of 28-AUG-2022 21:06, Heart rate has decreased Referred By: Gill Ventura Electronically Signed By:LOBO CINTRON
== END ==
LOC: HO.CARD 09:17
PROVIDERS: PCP Nurse Practitioner Family; Visit Provider Clinical Nurse Specialist Psychiatric/Mental Health
DX: R07.9 Chest pain, unspecified (principal); G44.209 Tension-type headache, unspecified, not intractable
CPT/HCPCS: 93005

== ENCOUNTER 2024-02-12 16:02 | Outpatient (AMB) | payer OTHER, SELFPAY ==
--- NOTE | 2024-02-12 16:08 | MHC.OFFVISPS ---
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 Allergies sumatriptan Allergy (Severe, Verified 12/30/23 15:11) Tachycardia, facial numbness pollen Allergy (Unknown, Uncoded 08/14/23 08:16) rASH, sob tuna Allergy (Unknown, Uncoded 08/14/23 08:16) anaphylaxis Medication List - Last Reconciled 02/12/24 by Gill Ventura, SEAN gabapentin 100 mg PO BID 30 days hydroxyzine HCl 25 mg PO TID PRN sertraline (Zoloft) 25 mg PO DAILY HPI- Psychiatric Chief Complaint: follow up HPI Narrative: pt had another episode of mental status change with suddden onset of confusion, blurry vision, feeling as if things were far aways, muscle tension in shoulder and chest; he was at work; his co-worker gave tai [employer] baar and drove him to hospital he was evaluated at hospital in [facility] ; he had ekg and blood work; blood work was normal; ekg normal; of note pt blood sugar only 103 after eating snickers bar 30 min before. His is with him today. She says he usually only eats one meal a day but drinks juice some days; she says he often doesn't eat until he gets home. He started the zoloft 2 days ago- no adverse effect; he and report several years of headaches, spitting up blood intermittently when is upset or angry. he also reports a many year history of upset stomach frequent loose bowel movements right after he eats. He says his father has had stomach problems and ulcers. He denies SI or HI. Past Psychiatric History: no previous psych treatment Subjective Subjective Subjective Medication Compliance: Yes Side effects from medications: No Review of Systems Medical Review of Systems: unchanged Mental Status Exam Mental Status Exam Patient Appearance: Appropriate Level of Consciousness: Awake, Appropriate and Alert Patient Behavior: Appropriate and Cooperative Mood Description: Flat Affect Description: Flat Patient Cognition Impaired: No Ability to Follow Directions: Good Speech Pattern: Clear and Appropriate Memory Description: Intact Hallucinations: None Delusions: Not Present Thought Process: Intact and Goal Oriented Thought Content: positive for Intact and positive for Goal Oriented Judgement: Good Assessment and Plan Assessment & Plan (1) Abdominal pain: Status: Acute Qualifiers: Abdominal location: generalized Qualified Code(s): R10.84 - Generalized abdominal pain Code(s): R10.9 - Unspecified abdominal pain (2) Hemoptysis: Status: Acute Code(s): R04.2 - Hemoptysis (3) Hypoglycemia: Status: Acute Code(s): E16.2 - Hypoglycemia, unspecified (4) Generalized anxiety disorder with panic attacks: Status: Acute Code(s): F41.1 - Generalized anxiety disorder; F41.0 - Panic disorder [episodic paroxysmal anxiety] Plan discussed hypoglycemia and preventing it by eating protein every 3 hours throughout the day continue zoloft limit acidic food/drinks for now referral to gastroenterology rule out IBS rule out ulcers Orders: Referrals Gastroenterology Referral R04.2 - Hemoptysis, R10.9 - Unspecified abdominal pain, R19.7 - Diarrhea, unspecified Counseling and coordination of Care Pt. Self Management counseling: Maintenance-social rhythm, Mod caffeine/ETOH intake, Nutrition education and improvement, Behavior activation, Cognitive restructuring and General coping skills Medication management counseling: Effectiveness, Side effects, Dosing range, Duration, Drug interaction and Adherence Diagnosis and Prognosis Counseling: Accuracy of diagnosis, Prognosis over time, Impact of diagnosis on life functions, Impact of family relationship, Problematic behaviors secondary to diagnosis and Adequacy of current interventions Details: I spent 45 minutes reviewing the record, seeing the patient and documenting in the medical record. Counseling provided to the patient/caregiver as outlined below. Addressed patient/caregiver concerns regarding current medication regime including effective adherence. Addressed patient/caregiver concerns regarding diagnosis and prognosis including accuracy of diagnosis, prognosis over time, impact of diagnosis. Addressed patient/caregiver concerns regarding impact of recent stressors. [facility] Medical History COVID Tension headache Asthma No known health problems Surgical History S/P appendectomy Family History Father Hypertension Diabetes Substance use disorder Mother No problems noted. Paternal Grandfather Diabetes Paternal Grandfather Substance use disorder Maternal Aunt Substance use disorder Maternal Grandmother Substance use disorder Paternal Aunt Substance use disorder Social History Household Members: Spouse and Family Housing: House Do you presently have visiting nurse or other home services: No Alcohol intake: never Patient Tobacco Use Status: Former Tobacco user e-Cigarette/Vaping Use: Currently Using Second Hand Smoke Exposure: No service: No Current occupational status: employed Cognitive needs: No Hearing needs: No Vision needs: No Social History: lives with supportive and 4 children ages 7-14. He works FT at [employer]. Substance History: In past ETOH none in 11 yrs Trauma History: yes Coding Level of Care Code Est Pt Level 5 (33779) Diagnoses Generalized abdominal pain R10.84 Abdominal location: generalized Hemoptysis R04.2 Hypoglycemia E16.2 Generalized anxiety disorder with panic attacks F41.1; F41.0
== END 2024-02-12 16:53 | disposition home or self-care (01) ==
LOC: HO.HOP 16:02
PROVIDERS: PCP Nurse Practitioner Family; Visit Provider Clinical Nurse Specialist Psychiatric/Mental Health
DX: F41.1 Generalized anxiety disorder (principal); R10.84 Generalized abdominal pain; R04.2 Hemoptysis; E16.2 Hypoglycemia, unspecified; F41.0 Panic disorder [episodic paroxysmal anxiety]
CPT/HCPCS: 99215

== ENCOUNTER 2024-03-02 08:52 | Outpatient (AMB) | payer OTHER, SELFPAY ==
--- NOTE | 2024-03-02 10:04 | MHC.OFFVISPS ---
Intake Intake Visit Reasons: follow up Rn Support Services Required: No Allergies sumatriptan Allergy (Severe, Verified 03/02/24 10:20) Tachycardia, facial numbness pollen Allergy (Unknown, Uncoded 03/02/24 10:20) rASH, sob tuna Allergy (Unknown, Uncoded 03/02/24 10:20) anaphylaxis Medication List - Last Reconciled 03/02/24 by Gill Ventura, SEAN gabapentin 100 mg PO BID 30 days hydroxyzine HCl 25 mg PO TID PRN sertraline (Zoloft) 25 mg PO DAILY HPI- Psychiatric Chief Complaint: follow up HPI Narrative: pt attends appt with his ; he has had a few similar episodes but none that have caused him to go to the ER. He reports dizziness, nausea and then a change in his hearing comes on first and then that makes him anxious; he ahs changed his diet. he is not eating food high in sugar; He is eating more protein. He did note that he was having an episode and his step mother gave him a muscle milk and he immediately felt better. He is taking medication as prescribed. he is struggling with stress from work and in his marriage. I have encouraged him to do therapy and possibly couple's therapy. He denies SI or HI. Past Psychiatric History: no previous psych treatment Subjective Subjective Subjective Medication Compliance: Yes Side effects from medications: No Review of Systems Medical Review of Systems: unchanged Mental Status Exam Mental Status Exam Patient Appearance: Well Grooomed and Appropriate Patient Orientation: Person, Place, Time and Situation Level of Consciousness: Awake, Appropriate and Alert Patient Behavior: Appropriate Mood Description: Calm and Withdrawn Affect Description: Withdrawn and Sad Patient Cognition Impaired: No Ability to Follow Directions: Good Speech Pattern: Clear Memory Description: Intact Hallucinations: None Delusions: Not Present Perceptual Disturbances: Depersonalization (possible) and Derealization (possible ) Thought Process: Intact Thought Content: positive for Intact Judgement: Fair Assessment and Plan Assessment & Plan (1) Generalized anxiety disorder with panic attacks: Status: Acute Code(s): F41.1 - Generalized anxiety disorder; F41.0 - Panic disorder [episodic paroxysmal anxiety] Plan rule out Meniere's Disease Medications: Refilled sertraline (Zoloft) 25 mg PO DAILY 30 tabs 0RF hydroxyzine HCl 25 mg PO TID PRN 30 tabs 0RF anxiety F41.9 - Anxiety disorder, unspecified Counseling and coordination of Care Pt. Self Management counseling: Maintenance-social rhythm, Mod caffeine/ETOH intake, Nutrition education and improvement and General coping skills Medication management counseling: Effectiveness, Side effects, Dosing range, Duration, Drug interaction, Adherence and Other Diagnosis and Prognosis Counseling: Accuracy of diagnosis, Prognosis over time, Impact of diagnosis on life functions, Impact of family relationship, Problematic behaviors secondary to diagnosis and Adequacy of current interventions Details: I spent 45 minutes reviewing the record, seeing the patient and documenting in the medical record. Counseling provided to the patient/caregiver as outlined below. Addressed patient/caregiver concerns regarding current medication regime including effective adherence. Addressed patient/caregiver concerns regarding diagnosis and prognosis including accuracy of diagnosis, prognosis over time, impact of diagnosis. Addressed patient/caregiver concerns regarding impact of recent stressors. [facility] Medical History COVID Tension headache Asthma No known health problems Surgical History S/P appendectomy Family History Father Hypertension Diabetes Substance use disorder Mother No problems noted. Paternal Grandfather Diabetes Paternal Grandfather Substance use disorder Maternal Aunt Substance use disorder Maternal Grandmother Substance use disorder Paternal Aunt Substance use disorder Social History Household Members: Spouse and Family Housing: House Do you presently have visiting nurse or other home services: No Alcohol intake: never Patient Tobacco Use Status: Former Tobacco user e-Cigarette/Vaping Use: Currently Using Second Hand Smoke Exposure: No service: No Current occupational status: employed Cognitive needs: No Hearing needs: No Vision needs: No Social History: lives with supportive and 4 children ages 7-14. He works FT at [employer]. Substance History: In past ETOH none in 11 yrs Trauma History: yes Coding Level of Care Code Est Pt Level 5 (65282) Diagnoses Generalized anxiety disorder with panic attacks F41.1; F41.0
== END 2024-03-02 09:49 | disposition home or self-care (01) ==
LOC: HO.HOP 08:52
PROVIDERS: PCP Nurse Practitioner Family; Visit Provider Clinical Nurse Specialist Psychiatric/Mental Health
DX: F41.1 Generalized anxiety disorder (principal); F41.0 Panic disorder [episodic paroxysmal anxiety]
CPT/HCPCS: 99215

== ENCOUNTER 2024-03-02 10:09 | Outpatient (AMB) | payer OTHER, SELFPAY ==
--- NOTE | 2024-03-02 10:17 | MHC.OFFWIV ---
Intake Vital Signs 03/02/24 10:19 Height 5 ft 1 in Weight 140 lb BMI 26.4 BP 110/70 Blood Pressure Location Lt brachial Position Sitting Pulse 74 Pulse Source Pulse Oximeter Pulse Oximetry (%) 98 Oxygen Delivery Method Room Air Intake Visit Reasons: EP Black chick[place] indian tribe on lt foot/ankle? Intake Note: Patient here for black dot on left ankle, pt would also like to have labs done to check cholesterol. Patient Tobacco Use Status: Former Tobacco user Allergies sumatriptan Allergy (Severe, Verified 03/02/24 10:20) Tachycardia, facial numbness pollen Allergy (Unknown, Uncoded 03/02/24 10:20) rASH, sob tuna Allergy (Unknown, Uncoded 03/02/24 10:20) anaphylaxis Do you need a note to return to daycare/school/sports/work: No HPI HPI Comments History of Present Illness Details Patient is a 34-year-old male with a 2 issues today. His 1st issue is that he needs to recheck his cholesterol, he is told by his PCP that his cholesterol was extremely elevated and he needed to adjust his diet which she has been doing by eating foods like avocados, almond milk, chicken and other healthy foods. He says he has been doing this for the last 2 months so he is here to get his cholesterol rechecked however he did not have a coffee with almond milk a little while ago. His 2nd issue is that on his left lateral ankle there is a black spot and that has never been there before. He 1st noticed it about a week ago. It is not itchy or painful but he states he has never noticed it before. He tells me it does not bleed or crust over. [facility] Medical History COVID Tension headache Asthma No known health problems Surgical History S/P appendectomy Family History Father Hypertension Diabetes Substance use disorder Mother No problems noted. Paternal Grandfather Diabetes Paternal Grandfather Substance use disorder Maternal Aunt Substance use disorder Maternal Grandmother Substance use disorder Paternal Aunt Substance use disorder Social History Household Members: Spouse and Family Housing: House Do you presently have visiting nurse or other home services: No Alcohol intake: never Patient Tobacco Use Status: Former Tobacco user e-Cigarette/Vaping Use: Currently Using Second Hand Smoke Exposure: No service: No Current occupational status: employed Cognitive needs: No Hearing needs: No Vision needs: No Review of Systems Const All systems reviewed & are unremarkable except as noted in HPI and below Physical Exam Vital Signs: Last Vital Signs Pulse 74 03/02/24 10:19 BP 110/70 03/02/24 10:19 Pulse Ox 98 03/02/24 10:19 Oxygen Delivery Method Room Air 03/02/24 10:19 BMI result Body Mass Index 26.4 Const General: cooperative, healthy appearing, comfortable, no acute distress and well developed Orientation/consciousness: patient oriented x3 Limitations: no limitations HEENT Head: Yes normal to inspection Ears: hearing grossly normal bilaterally General nose exam: Normal external nose present Face and sinus: Yes normal facial exam Eyes General: appearance normal, both eyes and all related structures Neck Neck: Yes normal visual inspection and Yes full ROM Resp Effort & Inspection: normal respiratory effort and able to speak in complete sentences Skin Other: Left lateral ankle has a 0.5 cm flat black lesion with smooth round symmetrical borders, no signs of infection noted, no surrounding erythema. Neuro General: patient oriented x3 Extrem General: Yes normal to inspection Assessment & Plan Assessment & Plan (1) Normal mole of skin: Code(s): D22.9 - Melanocytic nevi, unspecified Plan: Recommended he monitor the mole to make sure there are no changes in the borders, color, texture or that it does not stop bleeding or crusting or become painful or itchy. If any of these things should happen, he should follow up with his PCP for possible referral to Dermatology. Encouraged him to take a picture of it so that he can compare in the future. (2) Elevated cholesterol: Code(s): E78.00 - Pure hypercholesterolemia, unspecified Plan: Advised there are labs in the system that his PCP has ordered but that he would need to be fasting in order to do the labs. Patient understands and will return a different day when he has been fasting. Plan See above Coding Level of Care Code Est Pt Level 3 (59758) Diagnoses Normal mole of skin D22.9 Elevated cholesterol E78.00
[2024-03-02 10:19] VITALS: BP 110/70; PULSE 74; O2SAT 98; BMI 26.4
== END 2024-03-02 10:51 | disposition home or self-care (01) ==
PROVIDERS: PCP Nurse Practitioner Family; Visit Provider Physician Assistant
DX: D22.9 Melanocytic nevi, unspecified (principal); E78.00 Pure hypercholesterolemia, unspecified

== ENCOUNTER 2024-04-08 15:17 | Outpatient (AMB) | payer OTHER, SELFPAY ==
--- NOTE | 2024-04-08 15:48 | A.OFFPSYCH_ITS ---
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 He is working on coping skills; has ENT appt pending to rule out Meniere's disease; EEG pending. He has very high cholesterol and has worked on diet to reduce and will have rechecked soon. pt reports some GI upset so will stop zoloft and try prozac; discussed anxiety and PTSD can cause physical symptoms including dizziness, pain, panic. Past Psychiatric History: no previous psych treatment Subjective Subjective Subjective Medication Compliance: Yes Side effects from medications: No Review of Systems Medical Review of Systems: unchanged Mental Status Exam Mental Status Exam Patient Appearance: Well Grooomed and Appropriate Patient Orientation: Person, Place, Time and Situation Level of Consciousness: Awake and Appropriate Patient Behavior: Appropriate and Cooperative Mood Description: Happy and Anxious Affect Description: Happy and Anxious Patient Cognition Impaired: No Ability to Follow Directions: Good Speech Pattern: Clear and Appropriate Memory Description: Intact Hallucinations: None Delusions: Not Present Thought Process: Intact Thought Content: positive for Intact Judgement: Good Assessment and Plan Assessment & Plan (1) Generalized anxiety disorder with panic attacks: Status: Acute Code(s): F41.1 - Generalized anxiety disorder; F41.0 - Panic disorder [episodic paroxysmal anxiety] (2) Dizziness: Status: Acute Code(s): R42 - Dizziness and giddiness Plan stop zoloft and start prozac 10mg daily stop gabapentin as pt not taking it. Medications: New fluoxetine (Prozac) 10 mg PO DAILY 30 caps 1RF Discontinued gabapentin for anxiety Discontinued Reason: Doctor's Order 100 mg PO BID 30 days 60 caps 1RF sertraline Discontinued Reason: Duplicate 25 mg PO DAILY 90 tabs 1RF Counseling and coordination of Care Pt. Self Management counseling: Maintenance-social rhythm, Mod caffeine/ETOH intake, Sleep hygiene, Behavior activation, General coping skills and Problem solving Medication management counseling: Effectiveness, Side effects, Dosing range, Duration, Drug interaction and Adherence Diagnosis and Prognosis Counseling: Accuracy of diagnosis, Prognosis over time, Impact of diagnosis on life functions, Impact of family relationship, Problematic behaviors secondary to diagnosis and Adequacy of current interventions Details: I spent 45 minutes reviewing the record, seeing the patient and documenting in the medical record. Counseling provided to the patient/caregiver as outlined below. Addressed patient/caregiver concerns regarding current medication regime including effective adherence. Addressed patient/caregiver concerns regarding diagnosis and prognosis including accuracy of diagnosis, prognosis over time, impact of diagnosis. Addressed patient/caregiver concerns regarding impact of recent stressors. [facility] Medical History COVID Tension headache Asthma No known health problems Surgical History S/P appendectomy Family History Father Hypertension Diabetes Substance use disorder Mother No problems noted. Paternal Grandfather Diabetes Paternal Grandfather Substance use disorder Maternal Aunt Substance use disorder Maternal Grandmother Substance use disorder Paternal Aunt Substance use disorder Social History Household Members: Spouse and Family Housing: House Do you presently have visiting nurse or other home services: No Alcohol intake: never Patient Tobacco Use Status: Former Tobacco user e-Cigarette/Vaping Use: Currently Using Second Hand Smoke Exposure: No service: No Current occupational status: employed Cognitive needs: No Hearing needs: No Vision needs: No Social History: lives with supportive and 4 children ages 7-14. He works FT at [employer]. Substance History: In past ETOH none in 11 yrs Trauma History: yes Coding Level of Care Code Est Pt Level 5 (96402) Diagnoses Generalized anxiety disorder with panic attacks F41.1; F41.0 Dizziness R42
--- OUTSIDE RECORDS SUMMARY | 2024-04-09 14:46 | XMS_ITS | Continuity of Care Document ---
Author Organization [facility] ter Address [address] [place] [id number]- Care Team Providers Care Neuropsychology Division Chief Name Role Phone Chang GARCIA, Josh Rose Primary Care Physician [place] [facility] [place]09[place]24 - 03/09/[address] [address]- Encounter Diagnosis Vasovagal episode(Final) - 03/09/24 Near syncope(Final) - 03/09/24 Discharge Disposition: A-D/C Home Attending Physician: Pee Denise MD Admitting Physician: Pee Denise MD Referring Physician: Not on Staff, Referring [...] Date: 05/15/12 Stop Date: 05/18/12 Status: Ordered ondansetron 4 mg oral tablet, disintegrating 1 tablet = 4 mg, By Mouth, Every 6 hours, PRN as needed for nausea/vomiting, # 12 tablet, 0 Refills, Maintenance, 03/09/24 22:42:00 EDT, DIS Tablet, [id number], Partial fill upon patient request if the prescription is for a schedule II opioid... Start Date: 03/09/24 Stop Date: 03/12/24 Status: Ordered Problem List Condition Confirmation Course Effective Dates Status Health St [facility] Informant Nightmare disorder Confirmed Active Post traumatic stress disorder (PTSD) Confirmed Active Major depression, recurrent, chronic 1 Confirmed Active 1moderate with anxious distress Vital Signs Most recent to oldest [Reference Range]: 1 2 3 Height 158 cm (03/09/24 9:27 PM) 158 cm (03/09/24 9:09 PM) Weight 66.5 kg (03/09/24 9:27 PM) 66.5 kg (03/09/24 9:09 PM) Oxygen Saturation [94-100 %] 100 % (03/09/24 10:59 PM) 100 % (03/09/24 9:09 PM) 100 % (03/09/24 9:05 PM) Pulse Rate [55-90 bpm] 60 bpm (03/09/24 10:59 PM) 77 bpm (03/09/24 9:09 PM) 85 bpm (03/09/24 9:05 PM) Body Mass Index [18.5-24.99 kg/m2] 26.64 kg/m2 *H* (03/09/24 9:09 PM) Blood Pressure [90-138/55-84 mm Hg] 111/65mm Hg (03/09/24 10:59 PM) 143/88mm Hg *H* (03/09/24 9:09 PM) Respiratory Rate [16-30 br/min] 16 br/min (03/09/24 10:59 PM) 16 br/min (03/09/24 9:09 PM) 16 br/min (03/09/24 9:05 PM) Temperature [96.8-100.4 DegF] 97.6 DegF (03/09/24 9:09 PM) Mode of Delivery (Oxygen) Room air (03/09/24 10:59 PM) Room air (03/09/24 9:09 PM) Room air (03/09/24 9:05 PM) Blood pressure sites Arm, right (03/09/24 10:59 PM) Arm, left (03/09/24 9:09 PM) Temperature Route Oral (03/09/24 9:09 PM) Dry Weight 66.5 kg (03/09/24 9:27 PM) 66.5 kg (03/09/24 9:09 PM) Weight Obtained Via Patient/family state d (03/09/24 9:09 PM) Dry Weight Obtained Via Patient/family s tated (03/09/24 9:09 PM) Social History Social History Type Response Smoking Status Never (less than 100 in lifetime) entered on: 03/09/24 Sex Note * Pee Denise MD: PERFORM Event Display: Patient Education Leaflets Authored Date: Near-Fainting: Vagal Reaction ?? [id number] Near-Fainting: Vagal Reaction Fainting (syncope) is passing out. It's a temporary loss of consciousness. Near- fainting is feelinglike you are going to faint. But you don't lose consciousness. Fainting and near-fainting can be caused by a vagal reaction (or overstimulation of the vagus nerve). This is something you can't control. It's the body's involuntary response to a physical or emotional stress. This reaction causes a sudden drop in your blood pressure or a slowed heart rate. As a result, not enough blood goes to your brain. Lying down often stops the reaction very quickly. These are symptoms of near-fainting: ??? Feeling lightheaded or like you are going to faint ??? Weak pulse ??? Upset stomach (nausea) ??? Sweating ??? Blurred vision or feeling like your vision is blacking out ??? Trouble breathing ??? Cool and moist skin Causes for near-fainting include: ??? Sudden emotional stress such as fear, pain, panic, or the sight of blood ??? Straining or overexertion, straining while using the toilet, coughing, or sneezing ??? Standing up too quickly or standing up for too long a time ? Some medicines ??? Fluid loss (dehydration) Home care These tips will help you care for yourself at home: ??? Rest today and go back to your normal activities when you feel back to normal. ??? If you get lightheaded or dizzy, lie down right away. Put your legs up so they are higher than your heart. ??? If you are sitting down and feel faint, don't stand up. This may make the feeling worse. ??? Drink plenty of fluids, and don't skip meals. ??? Don't stand for long periods or stay in??hot places. ??? Do what you can to prevent constipation. If you bear down a lot when trying to poop (have a bowel movement), this can trigger a vagal response. Check with your healthcare provider to see if you need tests, such as a tilt- table test, heart rhythm monitoring, or blood tests. Review the medicines you take with your provider and pharmacist. Makesure the symptoms you have are not a side effect of a medicine. ?? Follow-up care Follow up with your healthcare provider, or as advised.?? If you have frequent episodes of near-fainting or vagal reactions, be careful about activities suchas driving. You could harm yourself or others if you were to faint. Don't drive or operate heavy machinery if you are feeling like you may faint. ?? Call 911 Call 911 if any of these occur: ??? Another fainting spell not explained by the common causes listed above ??? Chest, arm, neck, jaw, back, or belly (abdominal) pain ??? Shortness of breath ??? Weakness, tingling, or numbness in 1 side of the face, or 1 arm or leg ??? Slurred speech, confusion, or trouble walking or seeing ??? Seizure ??? Blood in vomit or poop (black or red color) ?? When to get medical care Call your healthcare provider right away if you sometimes have mild lightheadedness, especially when standing up. ?? Last Reviewed Date: 2022 ?? [id number] [employer]. All rights reserved. This information is not intended as a substitute for professional medical care. Always follow your healthcare professional's instructions. ?? Patient Care team information Care Team Personnel Name: Josh Downing NP Position: Reference Physician Member Role: PCP Address: Address: [address] [id number]- Care Team Related Persons Name: SURAJ TOPETE Address: home [address] [place] [address] Name: PATIENT, STATES NOONE Name: ORESTES REBOLLEDO Address: home [address] [place] [address]
== END 2024-04-08 16:20 | disposition home or self-care (01) ==
LOC: HO.HOP 15:17
PROVIDERS: PCP Nurse Practitioner Family; Visit Provider Clinical Nurse Specialist Psychiatric/Mental Health
DX: F41.1 Generalized anxiety disorder (principal); F41.0 Panic disorder [episodic paroxysmal anxiety]; R42 Dizziness and giddiness
CPT/HCPCS: 99215

== ENCOUNTER 2024-05-10 15:20 | Outpatient (AMB) | payer OTHER, SELFPAY ==
--- NOTE | 2024-05-10 15:26 | MHC.OFFVIS ---
Vital Signs 05/10/24 15:28 Height 5 ft 1 in Weight 150 lb BMI 28.3 BP 128/65 Blood Pressure Location Lt brachial Pulse 87 Intake Visit Reasons: Hemoptysis, Diarrhea , abd pain , rule out IBS Intake Note: Patient new consult for Hemoptysis, diarrhea, abdominal pain, rule out IBS. Patient cc: loose stool after eating and denies any other GI issues for today. Integration Assistant Required: No Accompanied by: Self / Same As Patient Allergies sumatriptan Allergy (Severe, Verified 05/10/24 15:26) Tachycardia, facial numbness pollen Allergy (Unknown, Uncoded 05/10/24 15:26) rASH, sob tuna Allergy (Unknown, Uncoded 05/10/24 15:26) anaphylaxis HPI Comments Details: 34 y.o M with PMH of asthma, anxiety and PTSD who is here for r/o IBS . Pt initially did not recall why he was referred to GI. However, on reviewing Psych notes seems to eb for frequent IBS. Pt was then able to report L sided abd discomfort with BM shortly after eating. Notices it more with certain foods such as eggs or potatoes. Has to have a BM within 30 mins. BM is watery no blood. No CRC or IBD in first degree relatives. Of note pt with significant fam hx of early CAD - brother from a massive heart attack recently. Pt himself with abnl lipids. [facility] Medical History COVID Tension headache Asthma No known health problems Surgical History S/P appendectomy Family History Father Hypertension Diabetes Substance use disorder Mother No problems noted. Paternal Grandfather Diabetes Paternal Grandfather Substance use disorder Maternal Aunt Substance use disorder Maternal Grandmother Substance use disorder Paternal Aunt Substance use disorder Social History Household Members: Spouse and Family Housing: House Do you presently have visiting nurse or other home services: No Alcohol intake: never Patient Tobacco Use Status: Former Tobacco user e-Cigarette/Vaping Use: Currently Using Second Hand Smoke Exposure: No service: No Current occupational status: employed Cognitive needs: No Hearing needs: No Vision needs: No Review of Systems Const All systems reviewed & are unremarkable except as noted in HPI and below Physical Exam Vital Signs: Last Vital Signs Pulse 87 05/10/24 15:28 BP 128/65 05/10/24 15:28 BMI result Body Mass Index 28.3 No apparent distress Nonicteric Abdomen soft, nondistended Alert and oriented x3, normal gait Assessment & Plan Assessment & Plan (1) Abdominal pain: Code(s): R10.9 - Unspecified abdominal pain Category: Medical Qualifiers: Abdominal location: generalized Qualified Code(s): R10.84 - Generalized abdominal pain (2) Postprandial diarrhea: Code(s): K52.9 - Noninfective gastroenteritis and colitis, unspecified Category: Medical (3) Elevated cholesterol: Code(s): E78.00 - Pure hypercholesterolemia, unspecified Category: Medical Plan Ddx includes celiac, IBS, IBD, hyperthyroid. Plan: - Labs ordered as below - Pt advised to seek christian science nurse referral if results normal to r/o food intolerance/allergy In terms of lipids, reports dietary modifications but not on any meds yet. Plan: - recheck lipids + A1c - LFTs Pt requests results to be given over the portal with PRN follow up unless has actionable findings Orders: Orders C Reactive Protein Today E78.00 - Pure hypercholesterolemia, unspecified Lipid Panel Today E78.00 - Pure hypercholesterolemia, unspecified Immunoglobulin A Today E78.00 - Pure hypercholesterolemia, unspecified TSH reflex Free T4 Today E78.00 - Pure hypercholesterolemia, unspecified Transglutaminase IgA Today E78.00 - Pure hypercholesterolemia, unspecified Calprotectin, Fecal Today E78.00 - Pure hypercholesterolemia, unspecified Liver Panel Today E78.00 - Pure hypercholesterolemia, unspecified Hemoglobin A1c Today E78.00 - Pure hypercholesterolemia, unspecified Coding Level of Care Code New Pt Level 4 (47188) Diagnoses Generalized abdominal pain R10.84 Abdominal location: generalized Postprandial diarrhea K52.9 Elevated cholesterol E78.00
[2024-05-10 15:28] VITALS: BP 128/65; PULSE 87; BMI 28.3
== END 2024-05-10 15:49 | disposition home or self-care (01) ==
PROVIDERS: PCP Nurse Practitioner Family; Visit Provider Internal Medicine
DX: R10.84 Generalized abdominal pain (principal); K52.9 Noninfective gastroenteritis and colitis, unspecified; E78.00 Pure hypercholesterolemia, unspecified
CPT/HCPCS: 99204

== ENCOUNTER 2024-05-10 15:20 | Outpatient (REF) | payer OTHER, SELFPAY ==
[2024-05-10 18:02] LABS: Albumin Level 4.5 g/dL (3.5-5.0); Aspartate Amino Transferase 66 U/L (5-37); Bilirubin Direct 0.1 mg/dL (0.0-0.5); Bilirubin Total 0.3 mg/dL (0.0-1.0); C Reactive Protein 0.18 mg/dL (< or = 0.50); Cholesterol 217 mg/dL (<200); HDL Cholesterol 40 mg/dL (>40); Total Protein 8.2 g/dL (6.5-8.0); Triglycerides 502 mg/dL (<150)
[2024-05-10 19:33] LABS: Alanine Aminotransferase 42 U/L (0-40); Alkaline Phosphatase 59 U/L (39-117)
[2024-05-10 23:44] LABS: TSH reflex Free T4 0.75 uIU/mL (0.32-4.0)
[2024-05-11 07:35] LABS: Estimated Average Glucose 105 mg/dL; Hemoglobin A1C 131.6058 umol/L; Hemoglobin A1c % 5.3 % (<6.0); Total Hemoglobin (HGBA1C) 3806.2837 umol/L
[2024-05-12 01:59] LABS: Immunoglobulin A 167 mg/dL (47-310)
[2024-05-13 14:03] LABS: Transglutaminase IgA <1.0 U/mL
== END 2024-05-10 15:21 | disposition home or self-care (01) ==
LOC: HO.LAB 15:20
PROVIDERS: PCP Nurse Practitioner Family; Visit Provider Internal Medicine
DX: E78.00 Pure hypercholesterolemia, unspecified (principal); Z13.1 Encounter for screening for diabetes mellitus
CPT/HCPCS: 36415; 80061; 80076; 82784; 83036; 84443; 86140; 86364

== ENCOUNTER 2024-06-03 09:51 | Outpatient (AMB) | payer OTHER, SELFPAY ==
--- NOTE | 2024-06-03 10:06 | MHC.OFFVISPS ---
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 he called out of work yesterday due to anxiety; He has not started the prozac. He ran out of hydroxyzine 2 weeks agoo. he did follow up with gastroenterology and has changed his diet. he had lipids checked and dthey came down a little but still high; started on atorvastatin. Pt denies SI or Hi. Past Psychiatric History: no previous psych treatment Subjective Subjective Subjective Medication Compliance: Yes Side effects from medications: No Review of Systems Medical Review of Systems: unchanged Mental Status Exam Mental Status Exam Patient Appearance: Well Grooomed and Appropriate Patient Orientation: Person, Place, Time and Situation Level of Consciousness: Awake, Appropriate and Alert Patient Behavior: Appropriate, Anxious and Fatigued Mood Description: Anxious and Sad Affect Description: Anxious and Sad Patient Cognition Impaired: No Ability to Follow Directions: Good Speech Pattern: Clear and Appropriate Memory Description: Intact Hallucinations: None Delusions: Not Present Thought Process: Intact Thought Content: positive for Intact Judgement: Good Assessment and Plan Assessment & Plan (1) Generalized anxiety disorder with panic attacks: Status: Acute Code(s): F41.1 - Generalized anxiety disorder; F41.0 - Panic disorder [episodic paroxysmal anxiety] Plan start the prozac today - take one daily with dinner start clonazeepam 0.5mg take 1/2 tab twice a day every day for 30 days take hydroxyzine 25 mg prn anxiety up to 3 x a day Medications: New clonazepam 0.25 mg (1/2 x 0.5 mg) PO BID 30 tabs 1RF Refilled hydroxyzine HCl 25 mg PO TID PRN 90 tabs 2RF anxiety F41.9 - Anxiety disorder, unspecified fluoxetine (Prozac) 10 mg PO DAILY 90 caps 1RF Counseling and coordination of Care Pt. Self Management counseling: Maintenance-social rhythm, Sleep hygiene, Behavior activation and Cognitive restructuring Medication management counseling: Effectiveness, Side effects, Dosing range, Duration, Drug interaction and Adherence Diagnosis and Prognosis Counseling: Accuracy of diagnosis, Prognosis over time, Impact of diagnosis on life functions, Impact of family relationship, Problematic behaviors secondary to diagnosis and Adequacy of current interventions Details: I spent 40 minutes reviewing the record, seeing the patient and documenting in the medical record. Counseling provided to the patient/caregiver as outlined below. Addressed patient/caregiver concerns regarding current medication regime including effective adherence. Addressed patient/caregiver concerns regarding diagnosis and prognosis including accuracy of diagnosis, prognosis over time, impact of diagnosis. Addressed patient/caregiver concerns regarding impact of recent stressors. [facility] Medical History COVID Tension headache Asthma No known health problems Surgical History S/P appendectomy Family History Father Hypertension Diabetes Substance use disorder Mother No problems noted. Paternal Grandfather Diabetes Paternal Grandfather Substance use disorder Maternal Aunt Substance use disorder Maternal Grandmother Substance use disorder Paternal Aunt Substance use disorder Social History Household Members: Spouse and Family Housing: House Do you presently have visiting nurse or other home services: No Alcohol intake: never Patient Tobacco Use Status: Former Tobacco user e-Cigarette/Vaping Use: Currently Using Second Hand Smoke Exposure: No service: No Current occupational status: employed Cognitive needs: No Hearing needs: No Vision needs: No Social History: lives with supportive and 4 children ages 7-14. He works FT at [employer]. Substance History: In past ETOH none in 11 yrs Trauma History: yes Coding Level of Care Code Est Pt Level 4 (47838) Diagnoses Generalized anxiety disorder with panic attacks F41.1; F41.0
== END 2024-06-03 10:25 | disposition home or self-care (01) ==
LOC: HO.HOP 09:51
PROVIDERS: PCP Nurse Practitioner Family; Visit Provider Clinical Nurse Specialist Psychiatric/Mental Health
DX: F41.1 Generalized anxiety disorder (principal); F41.0 Panic disorder [episodic paroxysmal anxiety]
CPT/HCPCS: 99214

== ENCOUNTER 2024-06-14 10:38 | Outpatient (AMB) | payer OTHER, SELFPAY ==
[2024-06-14 11:21] VITALS: BP 122/80; PULSE 73; TEMP 36.7; O2SAT 98; BMI 28.3
--- NOTE | 2024-06-14 11:21 | AM.OFFWIN_ITS ---
Intake Vital Signs 3 06/14/24 11:21 Height 5 ft 1 in Weight 150 lb BMI 28.3 BP 122/80 Blood Pressure Location Lt brachial Position Sitting Pulse 73 Pulse Source Pulse Oximeter Temp 98.0 F Temp Source Oral Pulse Oximetry (%) 98 Oxygen Delivery Method Room Air Intake Visit Reasons: EP LT shoulder pain Intake Note: pt is here for left shoulder pain Patient Tobacco Use Status: Former Tobacco user Allergies sumatriptan Allergy (Severe, Verified 06/14/24 11:41) Tachycardia, facial numbness atorvastatin Adverse Reaction (Mild, Verified 06/14/24 11:41) pain pollen Allergy (Unknown, Uncoded 05/10/24 15:26) rASH, sob tuna Allergy (Unknown, Uncoded 05/10/24 15:26) anaphylaxis Do you need a note to return to daycare/school/sports/work: No HPI HPI Comments 2 History of Present Illness0 Details 34 y/o male patient who presents to the walk in clinic with c/o chronic on going left shoulder pain for the past 2 years. Reports pain on/off. Denies injury or trauma but used to do manual labor in the past. [facility] Medical History (Updated 06/14/24 @ 12:29 by Shahana Fung NP) Chronic pain in left shoulder COVID Tension headache Asthma No known health problems Surgical History S/P appendectomy Family History Father Hypertension Diabetes Substance use disorder Mother No problems noted. Paternal Grandfather Diabetes Paternal Grandfather Substance use disorder Maternal Aunt Substance use disorder Maternal Grandmother Substance use disorder Paternal Aunt Substance use disorder Social History Household Members: Spouse and Family Housing: House Do you presently have visiting nurse or other home services: No Alcohol intake: never Patient Tobacco Use Status: Former Tobacco user e-Cigarette/Vaping Use: Currently Using Second Hand Smoke Exposure: No service: No Current occupational status: employed Cognitive needs: No Hearing needs: No Vision needs: No Review of Systems Const All systems reviewed & are unremarkable except as noted in HPI and below Physical Exam Vital Signs: Last Vital Signs Temp 98.0 F 06/14/24 11:21 Pulse 73 06/14/24 11:21 BP 122/80 06/14/24 11:21 Pulse Ox 98 06/14/24 11:21 Oxygen Delivery Method Room Air 06/14/24 11:21 BMI result Body Mass Index 28.3 Const General: cooperative and no acute distress Orientation/consciousness: patient oriented x3 Resp Effort & Inspection: normal respiratory effort Auscultation: clear to auscultation bilaterally Cardio Heart sounds: S1 normal heart sound present and S2 normal heart sound present Neuro General: patient oriented x3, gait normal and moves all extremities Extrem Left upper extremity: shoulder/upper arm Details: inspection abnormal, tenderness Location: of the proximal humerus and over the deltoid bursa and normal ROM; no swelling and no crepitus Shoulder/upper arm images: 2 1. Tenderness to the Anterior Shoulder/clavicle joint. Normal ROM Psych Speech and movement: Clear speech present Affect: Anxious affect present Assessment & Plan Assessment & Plan (1) Chronic pain in left shoulder: Code(s): M25.512 - Pain in left shoulder; G89.29 - Other chronic pain Plan: Ordered Xray shoulder Ordered PT Advised to discuss with PCP in the future for Orthopedics referral Orders: Orders 2 XR shoulder LT min 2V Today G89.29 - Other chronic pain, M25.512 - Pain in left shoulder PT Evaluation and Treatment Today G89.29 - Other chronic pain, M25.512 - Pain in left shoulder Medications: New 2 meloxicam 15 mg PO DAILY 30 tabs 0RF G89.29 - Other chronic pain, M25.512 - Pain in left shoulder cyclobenzaprine 5 mg PO BEDTIME 14 tabs 0RF G89.29 - Other chronic pain, M25.512 - Pain in left shoulder lidocaine 5% leave on most painful area for up to 12 hrs 1 patch topical DAILY 30 ea 0RF G89.29 - Other chronic pain, M25.512 - Pain in left shoulder Coding Level of Care Code Est Pt Level 4 (87328) Diagnoses Chronic pain in left shoulder M25.512; G89.29 Time Spent (min) 20
== END 2024-06-14 12:38 | disposition home or self-care (01) ==
PROVIDERS: PCP Nurse Practitioner Family; Visit Provider Nurse Practitioner Family
DX: M25.512 Pain in left shoulder (principal); G89.29 Other chronic pain

== ENCOUNTER 2024-06-15 10:34 | Outpatient (REF) | payer OTHER, SELFPAY ==
--- NOTE | ~2024-06-15 | XR_ITS ---
EXAMINATION: XR SHOULDER, LEFT CLINICAL INFORMATION: M25.512 - Pain in left shoulder COMPARISON: April 06, 2019 TECHNIQUE: AP external rotation, Grashey, scapular Y, and axillary views of the left shoulder. FINDINGS: No acute cortical disruption or malalignment. There is preservation of the joint spaces. No lytic or blastic lesions. No subcutaneous emphysema. No metallic or radiopaque foreign body. XR/XR shoulder LT min 2V IMPRESSION: Normal x-ray, left shoulder. Electronically signed by: Uriel Briseno MD 06/15/2024 11:33 AM EST
== END 2024-06-15 10:35 | disposition home or self-care (01) ==
LOC: HO.HMGCX 10:34
PROVIDERS: PCP Nurse Practitioner Family; Visit Provider Nurse Practitioner Family
DX: M25.512 Pain in left shoulder (principal); G89.29 Other chronic pain
CPT/HCPCS: 73030

== ENCOUNTER → 2024-06-15 11:06 | Outpatient (BNV) | payer OTHER, SELFPAY | PROVIDERS: PCP Nurse Practitioner Family; Visit Provider Radiology Diagnostic Radiology | DX: M25.512 Pain in left shoulder (principal) | CPT/HCPCS: 73030 ==

== ENCOUNTER 2024-06-16 08:01 | Outpatient (REF) | payer OTHER, SELFPAY ==
[2024-06-16 11:09] LABS: Alanine Aminotransferase 33 U/L (0-40); Albumin Level 4.6 g/dL (3.5-5.0); Alkaline Phosphatase 48 U/L (39-117); Anion Gap 11 (12-20); Aspartate Amino Transferase 25 U/L (5-37); Bilirubin Direct 0.2 mg/dL (0.0-0.5); Bilirubin Total 0.4 mg/dL (0.0-1.0); Blood Urea Nitrogen 15 mg/dL (9-16); Calcium 9.2 mg/dL (8.4-10.2); Carbon Dioxide 26 mmol/L (22-29); Chloride 105 mmol/L (96-108); Cholesterol 131 mg/dL (<200); Estimated Glomerular Filt Rate > 60; Glucose Fasting 85 mg/dL (60-99); HDL Cholesterol 37 mg/dL (>40); LDL Cholesterol Calculated 61 mg/dL (<100); Potassium 3.9 mmol/L (3.3-5.1); Sodium 138 mmol/L (135-145); Triglycerides 166 mg/dL (<150)
== END 2024-06-16 08:02 | disposition home or self-care (01) ==
LOC: HO.HMGCLDS 08:01
PROVIDERS: PCP Nurse Practitioner Family; Visit Provider Nurse Practitioner Family
DX: E78.5 Hyperlipidemia, unspecified (principal); R79.89 Other specified abnormal findings of blood chemistry
CPT/HCPCS: 36415; 80053; 80061; 80076; 82248

== ENCOUNTER → 2024-06-17 15:47 | Outpatient (BNV) | payer OTHER, SELFPAY | PROVIDERS: Emergency Provider Emergency Medicine; PCP Nurse Practitioner Family; Visit Provider Internal Medicine | DX: R07.9 Chest pain, unspecified (principal) | CPT/HCPCS: 93010 ==

== ENCOUNTER → 2024-06-17 15:58 | Outpatient (BNV) | payer OTHER, SELFPAY | PROVIDERS: PCP Nurse Practitioner Family; Visit Provider Radiology Diagnostic Radiology | DX: R07.9 Chest pain, unspecified (principal) | CPT/HCPCS: 71046 ==

== ENCOUNTER 2024-06-23 08:04 | Outpatient (AMB) | payer OTHER, SELFPAY ==
--- NOTE | 2024-06-23 07:55 | MHC.OFFVIS ---
Intake Visit Reasons: F/U/labs Allergies sumatriptan Allergy (Severe, Verified 06/17/24 15:59) Tachycardia, facial numbness atorvastatin Adverse Reaction (Mild, Verified 06/17/24 15:59) pain pollen Allergy (Unknown, Uncoded 05/10/24 15:26) rASH, sob tuna Allergy (Unknown, Uncoded 05/10/24 15:26) anaphylaxis HPI HPI F/U/labs: Details: History of Present Illness The patient is a 34-year-old male presenting with a follow-up for generalized anxiety disorder and hyperlipidemia. Over recent weeks, the patient has reported significant improvements in anxiety symptoms following outpatient psychiatric care with Dr. Gill Ventura. Modifications in his diet along with ongoing treatment have positively impacted his mental health. In April 2024, the patient was noted to have substantially elevated triglyceride levels of 502 mg/dL, prompting dietary changes and pharmacological intervention. These adjustments, along with ongoing atorvastatin therapy, resulted in a marked reduction in triglyceride levels to 166 mg/dL by May 2024. Total cholesterol levels have similarly decreased from 217 mg/dL to 131 mg/dL, with low-density lipoprotein (LDL) cholesterol now at 61 mg/dL. The patient has been adherent to atorvastatin 20 mg, although due to improvements, I have advised reducing the frequency of administration to 3 times a week. Review of Systems - Psychiatric: Reports anxiety symptoms improving. - Cardiovascular: Reports feeling improvement with hyperlipidemia management. PE: A+ox3 in no acute distress Discussion Notes I discussed with the patient the positive trajectory of his mental health improvement under Dr. Ventura's care and emphasized the importance of maintaining regular psychiatric evaluations. We reviewed the notable reductions in triglyceride and cholesterol levels, attributing this to combined pharmacological and dietary interventions. Given the significant improvements, a reduction in atorvastatin dosage frequency was deemed appropriate. I confirmed that repeat laboratory assessments would be necessary to ensure continued lipid control. The patient acknowledged understanding and consented to the treatment adjustments and monitoring plan. Follow-up visits were planned to evaluate progress and make further adjustments if necessary. Patient Instructions - Follow up regularly with Dr. Ventura for anxiety management. - Maintain current dietary modifications to support lipid health. - Adjust atorvastatin 20 mg intake as per revised schedule. - Schedule laboratory tests in 2-3 months to re-evaluate lipid levels. - Report any new symptoms or concerns promptly. [facility] Medical History (Updated 06/14/24 @ 12:29 by Shahana Fung NP) Chronic pain in left shoulder COVID Tension headache Asthma No known health problems Surgical History S/P appendectomy Family History Father Hypertension Diabetes Substance use disorder Mother No problems noted. Paternal Grandfather Diabetes Paternal Grandfather Substance use disorder Maternal Aunt Substance use disorder Maternal Grandmother Substance use disorder Paternal Aunt Substance use disorder Social History Household Members: Spouse and Family Housing: House Do you presently have visiting nurse or other home services: No Alcohol intake: never Patient Tobacco Use Status: Former Tobacco user e-Cigarette/Vaping Use: Currently Using Second Hand Smoke Exposure: No Advance Directives: No Advance Directives Information Provided: No service: No Current occupational status: employed Cognitive needs: No Hearing needs: No Vision needs: No Telehealth Telehealth Telehealth Platform: [facility] Location of provider rendering services: practice address Location of patient: address on file Patient Identification confirmed using: Name, : Yes Telehealth method: video Patient verbally consented to treatment: Yes Patient verbally consented to billing insurance company: Yes Patient informed of any privacy concerns related to visit: Yes Minutes spent on Phone/Video with Pt.: 15 Assessment & Plan Assessment & Plan (1) Generalized anxiety disorder with panic attacks: Code(s): F41.1 - Generalized anxiety disorder; F41.0 - Panic disorder [episodic paroxysmal anxiety] Category: Medical (2) Dyslipidemia: Code(s): E78.5 - Hyperlipidemia, unspecified Category: Medical Plan . Orders: Orders Complete Blood Count Auto Diff Today E78.5 - Hyperlipidemia, unspecified, F41.9 - Anxiety disorder, unspecified Comprehensive Nicholls. Panel Fast Today E78.5 - Hyperlipidemia, unspecified, F41.9 - Anxiety disorder, unspecified TSH reflex Free T4 Today E78.5 - Hyperlipidemia, unspecified, F41.9 - Anxiety disorder, unspecified UA CC w/rflx Micro + Cult Today E78.5 - Hyperlipidemia, unspecified, F41.9 - Anxiety disorder, unspecified Lipid Panel Today E78.5 - Hyperlipidemia, unspecified, F41.9 - Anxiety disorder, unspecified PT Evaluation and Treatment Today G89.29 - Other chronic pain, M25.512 - Pain in left shoulder Coding Level of Care Code Tele Est Pt Level 3 (36505) Diagnoses Generalized anxiety disorder with panic attacks F41.1; F41.0 Dyslipidemia E78.5
== END 2024-06-23 09:33 | disposition home or self-care (01) ==
LOC: HO.HMCC 08:04
PROVIDERS: PCP Nurse Practitioner Family; Visit Provider Nurse Practitioner Family
DX: F41.1 Generalized anxiety disorder (principal); F41.0 Panic disorder [episodic paroxysmal anxiety]; E78.5 Hyperlipidemia, unspecified

== ENCOUNTER 2024-07-01 09:22 | Outpatient (AMB) | payer OTHER, SELFPAY ==
--- NOTE | 2024-07-01 09:40 | A.OFFPSYCH_ITS ---
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 He had chest pain 2x and seen in ED. 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 pt states he is still taking the atorvastatin for cholesterol. Pt not taking prozac and not leandra clonazepam; taking hydroxyzine prn anxiety with good effect and no side effects. no SI or HI Past Psychiatric History: no previous psych treatment Subjective Subjective Subjective Medication Compliance: Yes Side effects from medications: No Review of Systems Medical Review of Systems: unchanged Mental Status Exam Mental Status Exam Patient Appearance: Well Grooomed and Appropriate Patient Orientation: Person, Place, Time and Situation Level of Consciousness: Awake and Appropriate Patient Behavior: Appropriate and Cooperative Mood Description: Calm and Happy Affect Description: Calm and Happy Patient Cognition Impaired: No Ability to Follow Directions: Good Speech Pattern: Clear and Appropriate Memory Description: Intact Hallucinations: None Delusions: Not Present Thought Process: Intact and Goal Oriented Thought Content: positive for Intact and positive for Goal Oriented Judgement: Good Assessment and Plan Assessment & Plan (1) Generalized anxiety disorder with panic attacks: Status: Acute Code(s): F41.1 - Generalized anxiety disorder; F41.0 - Panic disorder [episodic paroxysmal anxiety] Plan anxiety and panic in remission; he reports he feels better knowing his ekg and cholesterol good ; he is less fearful than he was and attributes the anxiety to a eacton to he brothers by heart attack; he does not feel as frightened by that anymore. He does not want to take prozac or clonazepam. 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 If he continues to be stable he will return to PCP care Medications: Refilled atorvastatin 20 mg PO BEDTIME 90 tabs 0RF Counseling and coordination of Care Pt. Self Management counseling: Maintenance-social rhythm, Mod caffeine/ETOH intake, Nutrition education and improvement and Sleep hygiene Medication management counseling: Effectiveness, Side effects, Dosing range, Duration, Drug interaction and Adherence Diagnosis and Prognosis Counseling: Accuracy of diagnosis, Prognosis over time, Impact of diagnosis on life functions, Impact of family relationship, Problema tic behaviors secondary to diagnosis and Adequacy of current interventions Details: I spent 40 minutes reviewing the record, seeing the patient and documenting in the medical record. Counseling provided to the patient/caregiver as outlined below. Addressed patient/caregiver concerns regarding current medication regime including effective adherence. Addressed patient/caregiver concerns regarding diagnosis and prognosis including accuracy of diagnosis, prognosis over time, impact of diagnosis. Addressed patient/caregiver concerns regarding impact of recent s tressors. [facility] Medical History (Updated 06/14/24 @ 12:29 by Shahana Fung NP) Chronic pain in left shoulder COVID Tension headache Asthma No known health problems Surgical History S/P appendectomy Family History Father Hypertension Diabetes Substance use disorder Mother No problems noted. Paternal Grandfather Diabetes Paternal Grandfather Substance use disorder Maternal Aunt Substance use disorder Maternal Grandmother Substance use disorder Paternal Aunt Substance use disorder Social History Household Members: Spouse and Family Housing: House Do you presently have visiting nurse or other home services: No Alcohol intake: never Patient Tobacco Use Status: Former Tobacco user e-Cigarette/Vaping Use: Currently Using Second Hand Smoke Exposure: No service: No Current occupational status: employed Cognitive needs: No Hearing needs: No Vision needs: No Social History: lives with supportive and 4 children ages 7-14. He works FT at [employer]. Substance History: In past ETOH none in 11 yrs Trauma History: yes Coding Level of Care Code Est Pt Level 4 (40637) Diagnoses Generalized anxiety disorder with panic attacks F41.1; F41.0
== END 2024-07-01 09:54 | disposition home or self-care (01) ==
LOC: HO.HOP 09:22
PROVIDERS: PCP Nurse Practitioner Family; Visit Provider Clinical Nurse Specialist Psychiatric/Mental Health
DX: F41.1 Generalized anxiety disorder (principal); F41.0 Panic disorder [episodic paroxysmal anxiety]
CPT/HCPCS: 99214